=== PATIENT | male | born 1955 | race Caucasian/White ===

== ENCOUNTER 2016-05-13 11:44 | Inpatient (IN) | payer OTHER ==
[2016-05-13] MEDS ORDERED: ZOFRAN ODT PO SCH (13:45)
[2016-05-13 14:03] LABS: ALLEN TEST YES; BE -12.1 mmoll (-3.0-3.0); BLOOD TYPE ARTERIAL; DRAW SITE R RADIAL; O2(CT) 7.1 mL/dL (15.0-23.0); PCO2(98.6) 31 mmHg (35-45); PO2(98.6) 97 mmHg (60-100); SAMPLE BLOOD; SAO2 99.8 % (95.0-100.0); THB 5.1 g/dL (11.5-17.4); pH(98.6) 7.26 (7.35-7.45)
[2016-05-13 14:04] LABS: MODALITY ROOM AIR
[2016-05-13] MEDS ORDERED: NS 500 ML ONE (15:34)
[2016-05-13] MEDS: LACTULOSE PO SCH (16:34)
[2016-05-13] MEDS: SODIUM BICARBONATE PO SCH (16:34)
--- NOTE | 2016-05-13 19:34 | HISTORY AND PHYSICAL ---
CHIEF COMPLAINT: Fatigue, weakness, anemia. HISTORY OF PRESENT ILLNESS: He is a 60-year-old white gentleman who after discharge from the hospital 2 weeks ago continues to have heme-positive stools. He has slow occult GI bleeding. He was seen twice at [facility] Transplant [facility]. When he left hematocrit was 26.9. In my office today it was 15. Basically admitted to the hospital for symptomatic anemia due to occult GI bleeding. I am going to ask Dr. Arriaga to unravel the occult GI bleeding. He had 2 EGDs and there were no signs of active bleeding. As a result a hospital admission was warranted. PAST MEDICAL HISTORY: Chronic renal failure stage 3, cirrhosis due to ELENA, type 2 diabetes, gout, hypertension, hypogonadism, hypothyroidism, morbid obesity, pancytopenia due to hypersplenism, umbilical hernia, sleep apnea, history of SBP, history of morbid obesity, history of non-anion gap metabolic acidosis due to GI loss. PAST SURGICAL HISTORY: Orthotopic liver transplant, vasectomy, recent EGD and colonoscopy this year consistent with portal gastropathy. MEDICATIONS: Prograf 0.5 mg daily, Synthroid 75 mcg daily, Prilosec 40 daily, nadolol 80 daily, glipizide 10 p.o. b.i.d., lactulose 30 mL p.o. t.i.d., Januvia 100 daily, Lasix 80 daily, Aldactone 100 daily, naproxen 550 p.o. b.i.d., bicarb 650 p.o. t.i.d. ALLERGIES: Reported to latex. SOCIAL HISTORY: Retired from . Disabled. Lives in [place]. No smoking. No alcohol. with 2 children. FAMILY HISTORY: Father of [place] at 60. Mom of breast cancer. HEALTH MAINTENANCE: Flu vaccine 2015, pneumonia 2014. Last EGD in April at [facility]. REVIEW OF SYSTEMS: HEENT: No headache. No vision problems. No earache. No sore throat. Neck: No goiter. No lymphadenopathy. No bruit. Cardiopulmonary: No chest pain, shortness of breath, PND, orthopnea. Gastrointestinal: No nausea, vomiting, abdominal pain. Occult heme-positive stools. Genitourinary: No history of hesitancy, frequency. No fever. Extremities: Mild swelling of feet. No joint pain. Neurologic Examination: No focal symptoms or weakness. PHYSICAL EXAMINATION: VITAL SIGNS: Stable. HEENT: Atraumatic, normocephalic. Pupils equal and reactive to light. Pale, slightly jaundiced. TMs are normal. Nose and throat within normal limits. NECK: Supple. No lymphadenopathy. JVD is normal. CHEST: Clear to auscultation. HEART: Sounds are regular, no murmur. ABDOMEN: Belly is soft, obese, nontender. Good bowel sounds. No masses palpable GASTROINTESTINAL: Heme-positive stools. EXTREMITIES: Had 2+ pedal edema in both legs. NEUROLOGIC: Nonfocal. No asterixis noted. INVESTIGATIONS IN MY OFFICE: Hematocrit 15, platelets 50,000, white cell count 2.5, SMA 7, creatinine is 2.3. ASSESSMENT AND PLAN: 1. A 60-year-old, white gentleman, admitted to the hospital with symptomatic anemia due to occult GI bleeding with underlying cirrhosis of liver with portal gastropathy and pancytopenia from hypersplenism. He continues to lose blood in the heme-positive stools. Plan is transfusion to maintain hematocrit above 24 and GI consult. Reconcile home medications. 2. Non-anion gap metabolic acidosis. Continue on bicarb. 3. Hepatic encephalopathy. Continue on Xifaxan, lactulose. Reconcile home medications when we check the labs in the morning.
[2016-05-13] MEDS: ZOFRAN ODT PO SCH (21:38)
[2016-05-13] MEDS: XIFAXAN PO SCH (22:30)
[2016-05-14 06:27] LABS: INR 1.23; PROTIME 13.1 Seconds (9.2-11.7)
[2016-05-14 06:32] LABS: BASO% 0.7 % (0.0-0.8); EOS# 0.21 X1000 (0.0-0.7); EOS% 7.5 % (0.0-10.0); HEMATOCRIT 19.1 % (42.0-52.0); HEMOGLOBIN 5.9 g/dL (14.0-18.0); LYMPH# 0.61 X1000 (1.2-3.4); LYMPH% 21.8 % (20.5-51.1); MANUAL DIFF NEEDED? NO; MCH 30.7 PG (27-31); MCHC 30.9 g/dL (33-37); MCV 99.5 FL (81-99); MONO# 0.24 X1000 (0.11-0.59); MONO% 8.6 % (1.7-9.3); NEUT% 61.4 % (42.2-75.2); PLT 40 X1000 (130-400); RBC 1.92 XMIL (4.7-6.1)
[2016-05-14 06:54] LABS: ALBUMIN 1.8 g/dL (3.5-5.0); CALCIUM 7.1 mg/dL (8.8-10.2); DIRECT BILIRUBIN 0.4 mg/dL (0.00-0.20); POTASSIUM 4.1 mmol/L (3.5-5.1); TOTAL BILIRUBIN 1.09 mg/dL (0.20-1.00); TOTAL PROTEIN 4.4 g/dL (6.3-8.3)
[2016-05-14] MEDS ORDERED: PRILOSEC PO SCH (07:00)
[2016-05-14] MEDS: LASIX PO SCH (08:57)
[2016-05-14] MEDS: CORGARD PO SCH (09:00)
[2016-05-14] MEDS: JANUVIA PO SCH (09:00)
[2016-05-14] MEDS: SODIUM BICARBONATE PO SCH ×3 (09:00→17:45)
[2016-05-14] MEDS: XIFAXAN PO SCH ×2 (09:01→21:11)
[2016-05-14] MEDS: PROGRAF PO SCH (09:01)
[2016-05-14] MEDS: SYNTHROID PO SCH (09:01)
[2016-05-14] MEDS: LEVAQUIN PO SCH (09:01)
[2016-05-14] MEDS ORDERED: NS 500 ML ONE (10:13)
[2016-05-14] MEDS: ZOFRAN ODT PO SCH (10:22)
[2016-05-14] MEDS: LACTULOSE PO SCH ×2 (12:34→17:42)
[2016-05-14] MEDS ORDERED: ALBUMIN 25% IV SCH (12:45)
[2016-05-14] MEDS: PROTONIX IV SCH ×2 (13:45→23:59)
[2016-05-14] MEDS: SODIUM CHLORIDE 0.9% INJ SCH ×2 (13:45→23:59)
[2016-05-14] MEDS: LASIX IV SCH ×2 (13:46→19:36)
[2016-05-14] MEDS ORDERED: CARAFATE LIQUID PO SCH (14:00)
[2016-05-14] MEDS: FLINTSTONES COMPLETE PO SCH (17:45)
[2016-05-14] MEDS: ICAR-C PO SCH (21:11)
--- NOTE | 2016-05-15 06:24 | CONSULTATION ---
DATE OF CONSULTATION: 05/14/2016 PRIMARY CARE PHYSICIAN: Dr. Georgia Zavala. PRIMARY LINE DEPARTMENT SUPERVISOR: Dr. Mickey Moser at [facility]. REASON FOR CONSULTATION: Liver cirrhosis secondary to fatty liver. HISTORY OF PRESENT ILLNESS: Mr. Cortes is a 60-year-old male who was noted to have low blood counts as an outpatient per Dr. Zavala. He was sent to the hospital for blood transfusion. The patient has a history of known liver cirrhosis complicated with esophageal varices, watermelon stomach, obesity, ascites, anasarca, hypoalbuminemia, coagulopathy, thrombocytopenia, who has been undergoing EGDs with serial argon plasma coagulations of watermelon stomach at [facility]. The last one was done in mid April. The next one is scheduled for 05/11/2016. In between , he came to see Dr. Zavala as an outpatient and was noted to have low blood counts and was sent to the hospital for blood transfusion. He received 3 units of blood transfusion. He need denies any vomiting blood. He does complain of diarrhea which he attributes to lactulose. He denies noticing any bright blood in the stools. PAST MEDICAL HISTORY: Morbid obesity, chronic renal failure stage 3, cirrhosis secondary to ELENA, status post liver transplant in 2008 and repeat cirrhosis in the liver since 2013, being followed Dr. Mickey Moser. Portal hypertension, thrombocytopenia, splenomegaly, hepatic encephalopathy, type 2 diabetes, gout, hypertension, hypogonadism, hypothyroidism, metabolic syndrome, umbilical hernia, sleep apnea, history of SBP. PAST SURGICAL HISTORY: Orthotopic liver transplant in 2008 at [facility]. Vasectomy. MEDICATIONS IN THE HOSPITAL: 1. Januvia. 2. Lactulose 30 mL p.o. t.i.d. 3. Lasix 80 mg p.o. daily. 4. Levaquin 5 mg p.o. daily. 5. Synthroid 75 mcg p.o. daily. 6. Nadolol 80 mg p.o. daily. 7. Tacrolimus 1 mg p.o. daily. 8. Sodium bicarbonate 650 mg p.o. t.i.d. 9. Xifaxan 550 mg p.o. b.i.d. 10. Zofran ODT 8 mg p.o. q. 8 hours as needed. 11. Lasix 80 mg IV as directed after blood transfusions. 12. Albumin 50 g IV daily for 3 days. 13. Iron-C b.i.d. 14. Protonix IV q.12 hours. He is a clear liquid diet. ALLERGIES: Latex. FAMILY HISTORY: He denied history of any smoking or alcohol. Very supportive at bedside. REVIEW OF SYSTEMS: He denies any fevers, rigors, chills, chest pain. He does have some weakness, shortness of breath, and dyspnea at rest which is getting better since transfusion. He denies any vomiting blood or passing blood in the stools. He denies any neurologic complaints although his ammonia was high. He is currently on Xifaxan and lactulose. PHYSICAL EXAMINATION: VITAL SIGNS: Temperature of 97.5 degrees, pulse rate 55 , respiratory 18, blood pressure 106/49, saturating 98% on room air. GENERAL APPEARANCE: Body weight is 329 pounds, 12.8 ounces. BMI is 51.7 kg/m. He is obese, lying in bed in no distress. HEENT: Pale conjunctivae. No icterus. Pupils equal, react to light. NECK is supple. CHEST: Decreased breath sounds. CARDIAC: Regular rhythm. No murmur. ABDOMEN: Obese. Abdominal wall edema noted. mild distention noted. No rebound or guarding. Bowel sounds heard. Extremities: No cyanosis or clubbing. Bilateral lower extremity edema noted. Neurologic: He is alert and awake. LABORATORY DATA: His hemoglobin and hematocrit is 5.9 and 19.1, white count of 2.8, platelet count of 40,000. MCV of 99.5. INR of 1.23. PT of 13.1, pH of 7.26, pCO2 of 31 , PO2 is 97. Bicarb of 15.5. lactate of 1.1; that is on room air ABG. Sodium 140, potassium 4.1, chloride 115, bicarb of 15. Anion gap 11. BUN of 60, creatinine 2.5, glucose of 87. Calcium 7.1, magnesium 2.0. Total bilirubin is 1.09, indirect 0.4. AST 25, ALT 15. Alkaline phosphatase 116. Total protein 4.4, albumin 1.8. Ammonia 66. Stool for occult blood is positive. IMPRESSION: 1. Fatty liver. Nonalcoholic steatohepatitis. Cirrhosis. Portal hypertension. Splenomegaly. Hepatic encephalopathy. Thrombocytopenia. Coagulopathy in setting of liver transplant in 2008 for fatty liver disease. 2. Morbid obesity metabolic syndrome. 3. Pancytopenia. 4. Positive Hemoccult. 5. Anemia; required 2 units of blood transfusion. 6. History of gastroesophageal varices and watermelon stomach, currently undergoing argon plasma coagulations at the [facility]. The last one was done in mid April and the next one is scheduled for 05/2016. RECOMMENDATIONS: 1. We will continue the patient on Protonix IV b.i.d. We will keep him on Carafate 1 g every 12 hours. We will keep an eye on his hemoglobin and hematocrit. We will transfuse as needed. He will continue on lactulose and Xifaxan. We will hold lactulose for more than 3 Bms in 24 hours. The patient is on Prograf which can cause side effects like hemolytic anemia and thrombocytopenia which also needs to be looked into per hematology and primary care team. 2. We will give him albumin 50g IV daily for 3 days for severe hypoalbuminemia which will help him diurese well. We will advance his diet to hepatic diet once hematocrit stabilizes. 3. We will keep him on Iron-C 1 capsule p.o. b.i.d. and multivitamin once daily. 4. We will continue him on home medications in the form of nadolol and Lasix. Above was discussed with the patient and family and all questions were answered. [facility] HOSPITALPatricia
[2016-05-15 07:13] LABS: BASO% 0.4 % (0.0-0.8); EOS# 0.16 X1000 (0.0-0.7); EOS% 6.6 % (0.0-10.0); HEMATOCRIT 22.6 % (42.0-52.0); HEMOGLOBIN 6.9 g/dL (14.0-18.0); LYMPH# 0.58 X1000 (1.2-3.4); MANUAL DIFF NEEDED? YES; MCH 29.9 PG (27-31); MCHC 30.5 g/dL (33-37); MCV 97.8 FL (81-99); MONO# 0.23 X1000 (0.11-0.59); MONO% 9.5 % (1.7-9.3); MPV 9.1 FL (7.4-10.4); NEUT% 59.5 % (42.2-75.2); PLT 43 X1000 (130-400); RBC 2.31 XMIL (4.7-6.1)
[2016-05-15 07:34] LABS: CALCIUM 7.4 mg/dL (8.8-10.2)
[2016-05-15] MEDS ORDERED: NS 500 ML IV ONE (07:53)
[2016-05-15 07:55] LABS: EOS 6 % (1-10); LYMPHS 12 % (21-51)
[2016-05-15] MEDS: JANUVIA PO SCH (09:40)
[2016-05-15] MEDS: SODIUM BICARBONATE PO SCH ×3 (09:40→18:23)
[2016-05-15] MEDS: LASIX PO SCH (09:40)
[2016-05-15] MEDS: LACTULOSE PO SCH ×3 (09:40→18:23)
[2016-05-15] MEDS: ICAR-C PO SCH ×2 (09:40→21:12)
[2016-05-15] MEDS: LEVAQUIN PO SCH (09:40)
[2016-05-15] MEDS: PROGRAF PO SCH (09:41)
[2016-05-15] MEDS: XIFAXAN PO SCH ×2 (09:41→21:12)
[2016-05-15] MEDS: CORGARD PO SCH (09:41)
[2016-05-15] MEDS: SYNTHROID PO SCH (09:41)
[2016-05-15] MEDS: FLINTSTONES COMPLETE PO SCH (09:41)
[2016-05-15] MEDS ORDERED: LASIX IV ONE ×2 (11:07→15:00)
--- NOTE | 2016-05-15 11:27 | PROGRESS NOTE ---
DATE: 05/15/2016 SUBJECTIVE: The patient is resting in bed. He is fixing to get 2 units blood transfusion. He had 2 BM's today.denies Melena. Wants to eat solid food. OBJECTIVE: Vitals: Temperature of 97.6 degrees, pulse rate 57, respiratory rate 14, blood pressure 115/50, satting 100% on room air. General: Morbidly obese. Lying in bed in no acute distress. HEENT: Pupils are equal and reactive to light. No icterus. Neck : Supple. Abdomen: Mildly protuberant. Morbidly obese. Abdominal wall edema noted. Bowel sounds are present. No guarding. Extremities: No cyanosis, clubbing. Bilateral chronic lower extremity edema noted and stasis dermatitis noted. Neurologic: He is alert, awake, oriented. LABS: His hemoglobin and hematocrit is 6.9 and 22.6. White count of 2.4, platelet count of 43, INR 1.23. Sodium 141, potassium 4, chloride 111, bicarbonate of 16, anion gap of 14, BUN of 60, creatinine of 2.6, glucose of 92, calcium 7.4. IMPRESSION AND PLAN: 1. Anemia likely secondary to liver cirrhosis and gastrointestinal blood loss with watermelon stomach. Questionable medications, like Prograf. We will continue to transfuse as needed. We will continue on iron b.i.d. Start Glucerna TID. and advance diet if Hct stabilizes. 2. Cirrhosis. Continue on nadolol, Lasix, intravenous albumin, Zyvox and lactulose. 3. Gastrointestinal bleed. He will continue on Protonix twice daily. 4. Status post liver transplant in 2008. Continue immunosuppression, like Prograf. Above plan discussed with the patient and family and answered all questions. [facility]
[2016-05-15] MEDS: ZOFRAN ODT PO SCH ×2 (13:42→23:49)
[2016-05-15] MEDS: PROTONIX IV SCH ×2 (13:42→17:16)
[2016-05-15] MEDS ORDERED: VENOFER 300 MG in NS 250 ML IV ONE (20:00)
[2016-05-15] MEDS ORDERED: VENOFER IV ONE (20:00)
[2016-05-15] MEDS: ALBUMIN 25% IV SCH (21:13)
[2016-05-16] MEDS ORDERED: BENADRYL LIQUID PO PRN (00:04)
[2016-05-16] MEDS: PROTONIX IV SCH ×2 (05:36→18:57)
[2016-05-16] MEDS: SODIUM CHLORIDE 0.9% INJ SCH (05:37)
[2016-05-16 07:01] LABS: BASO% 0.5 % (0.0-0.8); EOS# 0.15 X1000 (0.0-0.7); EOS% 7.4 % (0.0-10.0); HEMATOCRIT 24.2 % (42.0-52.0); HEMOGLOBIN 7.5 g/dL (14.0-18.0); LYMPH% 19.7 % (20.5-51.1); MANUAL DIFF NEEDED? YES; MCV 96.8 FL (81-99); MONO# 0.16 X1000 (0.11-0.59); MONO% 7.9 % (1.7-9.3); MPV 8.6 FL (7.4-10.4); NEUT% 64.5 % (42.2-75.2); PLT 32 X1000 (130-400)
[2016-05-16 07:04] LABS: CALCIUM 7.4 mg/dL (8.8-10.2)
[2016-05-16 08:26] LABS: EOS 4 % (1-10); LYMPHS 18 % (21-51); MONO 6 % (1-9)
[2016-05-16 08:27] LABS: HYPOCHROM 1+
[2016-05-16] MEDS: JANUVIA PO SCH (08:33)
[2016-05-16] MEDS: LASIX PO SCH (08:33)
[2016-05-16] MEDS: XIFAXAN PO SCH (08:33)
[2016-05-16] MEDS: PROGRAF PO SCH (08:33)
[2016-05-16] MEDS: ICAR-C PO SCH (08:33)
[2016-05-16] MEDS: SODIUM BICARBONATE PO SCH ×3 (08:33→18:57)
[2016-05-16] MEDS: LEVAQUIN PO SCH (08:33)
[2016-05-16] MEDS: FLINTSTONES COMPLETE PO SCH (08:33)
[2016-05-16] MEDS: CORGARD PO SCH (08:33)
[2016-05-16] MEDS: ALBUMIN 25% IV SCH (08:33)
[2016-05-16] MEDS: SYNTHROID PO SCH (08:33)
[2016-05-16] MEDS: LACTULOSE PO SCH ×3 (08:34→18:57)
[2016-05-16] MEDS ORDERED: NS 500 ML ONE (11:17)
[2016-05-16 18:40] VITALS: BP 120/50
--- NOTE | 2016-05-19 02:38 | DISCHARGE SUMMARY ---
ADMISSION DATE: 05/13/2016 DISCHARGE DATE: 05/16/2016 DISCHARGING DIAGNOSIS: Symptomatic anemia due to occult gastrointestinal bleeding. Previous EGD, colonoscopy were negative as well as capsule endoscopy. SECONDARY DIAGNOSIS: 1. Occult GI bleeding due to Portal gastropathy. 2. Chronic renal failure stage 3. 3. Cirrhosis due to nonalcoholic steatohepatitis. 4. Type 2 diabetes. 5. Gout. 6. Hypertension. 7. Hypogonadism. 8. Hypothyroidism. 9. Pancytopenia due to hypersplenism. 10. Umbilical hernia. 11. History of sleep apnea. 12. History of subacute bacterial peritonitis. 13. Non -anion gap metabolic acidosis. CONSULTANTS: Dr. Arriaga. PROCEDURES: 1. Transfusion of 6 units of packed RBC. 2. IRON INFUSION WHICH IS STOPPED DUE TO QUESTIONABLE ALLERGIC REACTION. 3. IV albumin followed by Lasix. BRIEF HISTORY: Please see the H and P was done on the day of admission. In brief he is a 60- year-old morbidly obese white gentleman with above problems under the care of [facility] transplant clinic presented to my office with symptomatic anemia. Hematocrit was 15. He continues to have heme-positive stools. HOSPITAL COURSE: He was given a transfusion to maintain hematocrit above 25. Erythropoietin levels were normal. Continues to have heme-positive stools. Dr. Arriaga recommended to follow up at the [facility]plant [facility]. His is going to call on Thursday to make an appointment. Rest of the hospital course was pretty stable. Ammonia level was 66. DISCHARGE INSTRUCTIONS: Flu vaccine. Pneumonia vaccines are up-to-date. Daily weights. Fluid restriction. Discharge weight is 320 pounds. Prograf 1 mg daily, Synthroid 75 mcg daily, Prilosec 40 daily, nadolol 80 mg daily, glipizide 10 mg p.o. b.i.d., lactulose 30 mL p.o. t.i.d., Xifaxan 550 mg p.o. b.i.d., Januvia 100 mg daily, Lasix 80 daily, Zofran as needed, Carafate liquid 10 mL 1 teaspoon every q.6, sodium bicarbonate 625 mg p.o. b.i.d. Follow up with [facility] next week. [facility]
== END 2016-05-16 19:07 | disposition home or self-care (01) | DRG 378 ==
LOC: DIRADM 11:44 → 3N 13:06
PROVIDERS: ADMIT Internal Medicine; ATTEND Internal Medicine
PROC: 30233N1 Transfusion of Nonautologous Red Blood Cells into Peripheral Vein, Percutaneous Approach (ICD-10-PCS; principal; 2016-05-13)
DX: K31.811 Angiodysplasia of stomach and duodenum with bleeding (principal); Z94.4 Liver transplant status; D61.818 Other pancytopenia; K76.6 Portal hypertension; E87.2 Acidosis; E11.22 Type 2 diabetes mellitus with diabetic chronic kidney disease; N18.3 Chronic kidney disease, stage 3 (moderate); E88.81 Metabolic syndrome and other insulin resistance; I12.9 Hypertensive chronic kidney disease with stage 1 through stage 4 chronic kidney disease, or unspecified chronic kidney disease; K75.81 Nonalcoholic steatohepatitis (NASH); E66.01 Morbid (severe) obesity due to excess calories; K72.90 Hepatic failure, unspecified without coma; I85.10 Secondary esophageal varices without bleeding; K42.9 Umbilical hernia without obstruction or gangrene; K74.60 Unspecified cirrhosis of liver; D73.1 Hypersplenism; K31.89 Other diseases of stomach and duodenum; E03.9 Hypothyroidism, unspecified; E29.1 Testicular hypofunction; G47.30 Sleep apnea, unspecified; Z79.899 Other long term (current) drug therapy; Z79.1 Long term (current) use of non-steroidal anti-inflammatories (NSAID); Z80.3 Family history of malignant neoplasm of breast; Z83.3 Family history of diabetes mellitus
CPT/HCPCS: 80048; 80076; 82140; 82270; 82805; 82948; 83735; 85025; 85610; 86850; 86900; 86901; 86920; 94760; 94761; C9113; J1756; J1940; J7040; J7050; P9016; P9047; S0164

== ENCOUNTER 2016-08-15 19:44 | Inpatient (IN) ==
[2016-08-15] MEDS ORDERED: ZOFRAN IV PRN (21:04)
[2016-08-15] MEDS ORDERED: PROTONIX 80 MG in NS 80 ML IV SCH (21:14)
[2016-08-15] MEDS ORDERED: SODIUM CHLORIDE 0.9% INJ SCH (21:30)
[2016-08-15] MEDS ORDERED: SANDOSTATIN 500 MICROGM in D5W 100 ML IV SCH (21:45)
[2016-08-15 21:50] LABS: INR 1.29; PROTIME 13.8 Seconds (9.2-11.7)
[2016-08-15 22:01] LABS: ALBUMIN 3.1 g/dL (3.5-5.0); CALCIUM 7.8 mg/dL (8.8-10.2); MAGNESIUM 1.8 mg/dL (1.5-2.7); POTASSIUM 3.2 mmol/L (3.5-5.1); TOTAL BILIRUBIN 2.3 mg/dL (0.20-1.00); TOTAL PROTEIN 5.7 g/dL (6.3-8.3)
[2016-08-15 22:02] LABS: BASO% 0.7 % (0.0-0.8); EOS# 0.05 X1000 (0.0-0.7); EOS% 3.5 % (0.0-10.0); HEMATOCRIT 17.9 % (42.0-52.0); HEMOGLOBIN 5.6 g/dL (14.0-18.0); LYMPH# 0.35 X1000 (1.2-3.4); LYMPH% 24.6 % (20.5-51.1); MANUAL DIFF NEEDED? YES; MCH 32.2 PG (27-31); MCHC 31.3 g/dL (33-37); MCV 102.9 FL (81-99); MONO# 0.12 X1000 (0.11-0.59); MONO% 8.5 % (1.7-9.3); MPV 9.9 FL (7.4-10.4); NEUT% 62.7 % (42.2-75.2); PLT 27 X1000 (130-400); RBC 1.74 XMIL (4.7-6.1)
[2016-08-15] MEDS ORDERED: TYLENOL PO PRN (22:03)
[2016-08-15 22:11] LABS: LYMPHS 23 % (21-51); MONO 3 % (1-9)
[2016-08-15 22:12] LABS: HYPOCHROM OCCASIONAL
--- NOTE | 2016-08-15 22:53 | HISTORY AND PHYSICAL ---
CHIEF COMPLAINT: Was low blood count and weakness. HISTORY OF PRESENT ILLNESS: Briefly it is a very complicated patient of Dr. Zavala'goldy with status post hepatic transplant who has recently been admitted for a GI bleed and who is followed primarily at [facility] in the transplant center has recently been placed on dialysis. He has not noted significant blood loss. The last admission he had obvious I believe hematochezia and has a history of variceal bleeding and I believe portal gastropathy related to his chronic liver disease cirrhosis. He has not noticed any melena or hematochezia at this point. He came in for evaluation. His blood count was around 7. He was discharge from [facility] I want to say couple weeks ago. He had been there actually for about 20 days. Hemoglobin was 7 at that time. Today in dialysis his hemoglobin was found to be 5 and he was directly admitted per Dr. Sanchez for transfusion and further evaluation. PAST MEDICAL HISTORY: 1. Again status post hepatic transplant but with recurrent cirrhosis. 2. End-stage renal disease. 3. Hypertension. 4. Recent GI bleed. 5. History of esophageal varices. 6. Portal gastroscopy. 7. Type 2 diabetes. 8. Hypothyroidism. PAST SURGICAL HISTORY: Vasectomy and liver transplant. SOCIAL HISTORY: No tobacco or ethanol. ALLERGIES: Reportedly allergies to latex and iron sucrose. MEDICATION LIST: He is on Questran, dicyclomine, Lasix, glipizide, lactulose, Synthroid, metolazone, nadolol, omeprazole. REVIEW OF SYSTEMS: Otherwise negative except as outlined in the HPI. All systems reviewed and are negative. FAMILY HISTORY: Reviewed, noncontributory. PHYSICAL EXAMINATION: VITAL SIGNS: Blood pressure 104/35, heart rate of 71, respiratory 16, temperature 97.8, saturations were 100% on room air. GENERAL: A well-developed male in no acute distress. HEAD: Normocephalic, atraumatic. EYES: Pupils equal, round, reactive to light. He does have icteric sclerae. NECK: Supple. No thyromegaly. PULMONARY: Bilateral breath sounds. Clear anteriorly. GI: Was soft, protuberant, some distention. Bowel sounds positive. EXTREMITIES: No clubbing or cyanosis. LYMPHATICS: No peripheral edema. He had skin chronic venous changes along both lower extremities. NEUROLOGICAL: Nonfocal. He was alert oriented x3. MUSCULOSKELETAL: Was 4/5 on all 4 extremities. No asterixis was appreciated. LABORATORY DATA: Is pending. Hemoglobin of 5.6, INR is 1.29. Chemistries still pending. ASSESSMENT AND PLAN: This is a 61-year-old male with hepatic transplant and cirrhosis and end- stage renal presenting with persistent GI bleeding, chronic blood loss, symptomatic anemia. 1. Symptomatic anemia. We will transfuse 2 units of packed red blood cells and follow clinically. 2. Gastrointestinal bleed. He likely has acute on chronic process. Again most of his workup has been at [facility]. Will defer to Dr. Zavala or his covering team in the morning about any other imaging modalities. I will go ahead and get GI involved here. We have started Protonix and octreotide just because of his history. 3. Diabetes. Continue follow his blood sugars. Check a hemoglobin A1c. 4. Hypothyroidism appears to be stable. Continue his regular medications and follow. cc: MD Fabricio Cassidy MD
[2016-08-16] MEDS: CARAFATE LIQUID PO SCH ×2 (01:22→01:25)
[2016-08-16] MEDS ORDERED: NS 500 ML ONE ×2 (01:28→10:54)
[2016-08-16] MEDS ORDERED: NS 250 ML IV ONE (03:14)
[2016-08-16] MEDS ORDERED: HUMULIN R SUBQ SCH (07:00)
[2016-08-16 07:52] LABS: ALBUMIN 2.9 g/dL (3.5-5.0); POTASSIUM 3.6 mmol/L (3.5-5.1); TOTAL BILIRUBIN 3.81 mg/dL (0.20-1.00); TOTAL PROTEIN 5.3 g/dL (6.3-8.3)
[2016-08-16 07:59] LABS: BASO% 0.6 % (0.0-0.8); EOS# 0.07 X1000 (0.0-0.7); HEMOGLOBIN 6.6 g/dL (14.0-18.0); LYMPH# 0.33 X1000 (1.2-3.4); LYMPH% 19.1 % (20.5-51.1); MANUAL DIFF NEEDED? YES; MCH 31.6 PG (27-31); MCHC 31.4 g/dL (33-37); MCV 100.5 FL (81-99); MONO# 0.14 X1000 (0.11-0.59); MONO% 8.1 % (1.7-9.3); NEUT% 68.2 % (42.2-75.2); RBC 2.09 XMIL (4.7-6.1)
[2016-08-16 08:01] LABS: PLT 26 X1000 (130-400)
[2016-08-16 08:27] LABS: LYMPHS 20 % (21-51); MONO 16 % (1-9)
[2016-08-16] MEDS ORDERED: HEPARIN IV PRN (08:30)
[2016-08-16] MEDS ORDERED: NS 2,000 ML MISC PRN (08:30)
[2016-08-16] MEDS ORDERED: TIGHT: 0.2 ML/HR MISC PRN (08:30)
[2016-08-16] MEDS ORDERED: LACTULOSE PO SCH (09:00)
[2016-08-16] MEDS ORDERED: LASIX PO SCH (09:00)
[2016-08-16] MEDS ORDERED: ZOFRAN ODT PO SCH (09:00)
[2016-08-16] MEDS ORDERED: ZAROXOLYN PO SCH (09:00)
[2016-08-16] MEDS ORDERED: SODIUM BICARBONATE PO SCH (09:00)
[2016-08-16] MEDS ORDERED: SYNTHROID PO SCH ×3 (09:00→09:53)
[2016-08-16] MEDS ORDERED: CORGARD PO SCH (09:00)
[2016-08-16] MEDS ORDERED: PROGRAF PO SCH (09:00)
[2016-08-16] MEDS ORDERED: XIFAXAN PO SCH (09:00)
[2016-08-16] MEDS ORDERED: BENTYL LIQUID PO SCH (09:00)
[2016-08-16] MEDS ORDERED: ZOFRAN PO PRN ×2 (09:47)
[2016-08-16] MEDS ORDERED: QUESTRAN PO SCH (10:00)
--- NOTE | 2016-08-16 10:27 | Diag Imaging Result Document ---
PROCEDURE NAME: CHEST-PORTABLE - 08/15/2016 PORTABLE CHEST X-RAY: COMPARISON: 06/22/2016. FINDINGS: There is a right-sided dialysis catheter, with the distal tip at the lower SVC. No pneumothorax or pleural effusion. There is moderate cardiomegaly. Pulmonary vascularity is normal. IMPRESSION: Mild cardiomegaly, but no acute disease.
--- NOTE | 2016-08-16 10:29 | Diag Imaging Result Document ---
PROCEDURE NAME: ABDOMEN FLAT/UPRIGHT - 08/15/2016 X-RAY ABDOMEN, TWO VIEWS: COMPARISON: 06/16/2016. FINDINGS: The upright exam should be repeated. There is a lot of heterogeneous contents within the stomach bubble. No small bowel obstruction. Numerous surgical clips are present throughout the abdomen. IMPRESSION: 1. Nonspecific, large collection of heterogeneous material in the stomach. 2. Upright exam should be repeated.
[2016-08-16] MEDS ORDERED: TUMS EXTRA STRENGTH PO SCH (11:00)
--- NOTE | 2016-08-16 11:00 | PROGRESS NOTE ---
DATE: 08/16/2016 SUBJECTIVE: The patient is stable. No active bleeding. Feels generally well. Had had profound anemia with a hemoglobin of 5 yesterday at dialysis and was sent in for blood transfusions and during the night received 2 units PRBCs transfused. Again, no active bleeding. He has been followed at [facility] after his liver transplant. He says he is taking his Prograf Mondays, Wednesdays, and Fridays. He is scheduled to undergo dialysis per Dr. Sanchez this morning. OBJECTIVE: Vital signs: Afebrile. Pulse 72, respirations 20, blood pressure 107/46, O2 sat on room air 100%. CV: RRR. Lungs: CTA. Abdomen: Protuberant, nontender. Extremities: Trace lower extremity edema. LAB: White count 1.73 up from 1.42 last evening. Hemoglobin 6.6, up from 5.6. Platelets 26, stable. PT 13.8, INR 1.29, PTT 41.1. Sodium 136, potassium 3.6, chloride 99, CO2 of 27, BUN 23, creatinine 1.7, glucose 85, calcium 8.0, magnesium 2.0. Total bilirubin 3.81, AST 29, ALT 17, alkaline phosphatase 108, total protein 5.3, albumin 2.9. TSH 5.59. Plasma lactate 2.8. ASSESSMENT: 1. Profound anemia with thrombocytopenia. 2. Chronic liver disease status post liver transplant secondary to sclerosis. 3. Type 2 diabetes mellitus. 4. Obesity. 5. History of recent GI bleed. 6. End-stage renal disease on hemodialysis per Dr. Sanchez. 7. History of esophageal varices. 8. Hypothyroidism. PLAN: At this time, Dr. Sanchez plans on giving the patient an additional 2 units PRBCs--that is a total of 4. Then he plans on dialyzing the patient to prevent fluid overload. Will try to resume his home medications, place him on a diabetic diet, and follow the patient clinically. Dr. Bravo is going to see the patient in consultation for Gastroenterology. Continue IV PPI and oral Carafate. cc: MD Fabricio Rodrigues MD
[2016-08-16] MEDS ORDERED: NS 2,000 ML ONE ×2 (13:36→13:59)
--- NOTE | 2016-08-16 14:56 | PROGRESS NOTE ---
DATE: 08/16/2016 Mr. Cortes is currently receiving hemodialysis. No shortness of breath. His blood pressure is acceptable. He will dialyze for up to 2 hours and achieve 1.5 L net negative with 1 unit packed red blood cells transfused. He is tolerating this plan so we will continue without interruption. cc: MD Fabricio Cervantes MD
--- NOTE | 2016-08-16 15:10 | CONSULTATION ---
DATE OF CONSULTATION: 08/16/2016 REASON FOR CONSULTATION: Assistance with management. HISTORY OF PRESENT ILLNESS: Mr. Cortes is a 61-year-old white male who has been hospitalized repeatedly and extensively at [facility]. He has advanced cirrhosis. He has had a transplant in the past. He has had problems with ongoing GI bleeding resulting from esophageal varices. Family states he had 21 units of packed red blood cells during his last stay at [facility]. He initiated dialysis 3 weeks ago while he was at [facility] and is now coming to our clinic. His outpatient routine hemoglobin was 5 and so he was directly admitted to receive transfusion. He has had 2 units of blood already and his hemoglobin improved from 5.6 to 6.6, and he is receiving an additional 2 units. He states he does not have melena or hematochezia or nausea or vomiting at this time. PAST MEDICAL HISTORY: As above. He also has diabetes, hypothyroidism. ALLERGIES: Iron sucrose. SOCIAL HISTORY: He is and lives with his . No alcohol or tobacco. FAMILY HISTORY: Otherwise noncontributory. REVIEW OF SYSTEMS: Otherwise noncontributory. PHYSICAL EXAMINATION: Vital Signs: Blood pressure 105/52, heart rate 70, respiration 18, afebrile. Generally: He is a middle-aged, chronically ill man, in no distress. Skin: Warm and dry. Conjunctivae are pink. Pupils are equal. Oropharynx is dry. Neck: Neck veins are not visible. Heart: Regular without gallops. Lungs: Have equal breath sounds. No crackles. Abdomen: Distended and soft. Bowel sounds are present. Extremities: Have minimal edema. No clubbing or cyanosis. IMPRESSION: Gastrointestinal bleeding. He has had 3 units of blood at this time. We will give the last unit with dialysis today in order to maintain a euvolemic state. He understands that he is at risk for needing further transfusions but he would prefer to go home. His hemoglobin will be monitored regularly at the outpatient dialysis unit. He was warned to call or return if he develops melena or vomiting. cc: MD Fabricio Cervantes MD
[2016-08-16 15:49] VITALS: BP 121/62
--- NOTE | 2016-08-16 16:08 | CONSULTATION ---
DATE OF CONSULTATION: 08/16/2016 REFERRING PHYSICIAN: Dr. Best Sanchez M.D. PRIMARY CARE PHYSICIAN: Dr. Keerthi Zavala M.D. PRIMARY TRACE CLERK: Dr. Darnell Acevedo M.D. TRANSPLANT PHYSICIAN: Dr. Mickey Moser M.D. at [facility] CHIEF COMPLAINT: Anemia. HISTORY OF PRESENT ILLNESS: The patient is a 61-year-old white male who underwent a liver transplant in 2008 for nonalcoholic fatty liver disease. However, his course has been complicated by recurrence of his cirrhosis. He was recently discharged from [facility] after a 20- day hospitalization for GI bleeding secondary to varices. He has undergone evaluation for transplant due to new onset renal failure. He is currently on dialysis. At the time of discharge, the patient states that his hemoglobin was approximately 7.0. He had minimal symptoms but presented to hemodialysis for his regular dialysis and was found to have a hemoglobin of 5.0. He was admitted for further evaluation and transfusion. The patient states that he would like to be transfused and discharged. He notes that they already have a preexisting medical appointment for reevaluation at [facility] on 08/31/2016. We are asked to participate in his care. PAST MEDICAL HISTORY: 1. Nonalcoholic fatty liver disease requiring liver transplant, now with recurrent cirrhosis. 2. New end stage renal disease requiring hemodialysis. 3. Hypertension. 4. Variceal bleeding. 5. Recurrent GI bleeding from nonvariceal sources. 6. Esophageal varices secondary to portal hypertension. 7. Diabetes type 2. 8. Hypothyroidism. 9. Central morbid obesity. PAST SURGICAL HISTORY: 1. Orthotopic liver transplant. 2. Vasectomy. SOCIAL HISTORY: Negative for tobacco, alcohol and recreational drug use. MEDICATION ALLERGIES: 1. Latex. 2. Iron sucrose. HOME MEDICATIONS: 1. Questran. 2. Doxycycline. 3. Lasix. 4. Glipizide. 5. Lactulose. 6. Synthroid. 7. Metolazone. 8. Nadolol. 9. Omeprazole. REVIEW OF SYSTEMS: Only remarkable for weakness and fatigue. He denies blood in his stool, nausea with vomiting, hematemesis, hematochezia and melena. FAMILY HISTORY: Noncontributory. PHYSICAL EXAMINATION: He is in no acute distress. His blood pressure is 109/46 , pulse 69, respirations 18, temperature 98.0. HEENT: Notable for anicteric sclerae. His conjunctivae are pale. His oropharyngeal mucosal membranes are unremarkable. Pulmonary: His lungs are clear to auscultation with normal respiratory effort. Cardiovascular: Regular rate and rhythm with no gallops or rubs. Abdomen: Normoactive bowel sounds. The abdomen is soft and nontender but is protuberant. There is no rebound or guarding. Extremities: Bilaterally are negative for cyanosis, clubbing or edema. He does have chronic stasis dermatitis bilaterally. DIAGNOSTIC DATA: Hemoglobin is 5.6, hematocrit 17.9, white count 1.42 with 27, 000 platelets on admission. On 08/16/2016, his hemoglobin is 6.6 with hematocrit of 21.0, white count of 1.73 and 26,000 platelets. His sodium is 136, potassium 3.6, chloride 99, CO2 is 27, BUN is 23, creatinine 1.7 with glucose of 85. His calcium is 8.0, magnesium 2.0, total bilirubin 3.81 , AST is 29, ALT is 17, alkaline phosphatase 108, total protein 5.3 and albumin of 2.9. His TSH is 5.59. On admission, his PT was 13.8 with an INR of 1.29. His PTT is 41.1. IMPRESSION: 1. Symptomatic anemia. 2. Pancytopenia. 3. Known cirrhosis with portal hypertension. 4. History of variceal bleeding, currently being banded at [facility]. 5. Protein calorie malnutrition. 6. Hypothyroidism. 7. Central morbid obesity. RECOMMENDATIONS: 1. The patient and his state that they would like to follow up with Dr. Mickey Moser at [facility]. Therefore, I would recommend continued supportive care and discharge post transfusion. 2. The patient has pancytopenia which appears to be new and warrants further evaluation. 3. Continue nadolol. 4. I would continue the octreotide drip for at least 3 days as he just had variceal banding. 5. I would also continue the Protonix drip for 72 hours. 6. Continue Xifaxan. 7. Continue Bentyl. 8. After 72 hours of IV therapy, I would normally place him on oral PPI therapy. However, the patient is adamant that he wants to be discharged today. 9. He should keep his approximately at [facility] as previously scheduled. 10.Please feel free to contact us if there is a change in his clinical course. cc: MD Fabricio Gonsalez MD Alexis R. Penot, MD Babu Kantamneni, MD Brendan McGuire, MD MTDD
[2016-08-17] MEDS ORDERED: CORGARD PO SCH (09:00)
[2016-08-17] MEDS ORDERED: FOLIC ACID PO SCH (09:00)
--- NOTE | 2016-08-18 05:39 | EKG Report ---
Test Performed on : 08/15/2016 9:30:07 PM Test Reason : chest pain Blood Pressure : / mmHG Vent. Rate : 070 BPM Atrial Rate : 070 BPM P-R Int : 234 ms QRS Dur : 092 ms QT Int : 476 ms P-R-T Axes : 034 069 047 degrees QTc Int : 514 ms Sinus rhythm. with 1st degree AV block. with occasional premature ventricular complexes. Prolonged QT Abnormal ECG When compared with ECG of 22-MAY-2015 05:28, premature ventricular complexes. are now present QRS axis shifted left Nonspecific T wave abnormality, improved in Anterior leads QT has lengthened Confirmed by Vishal SALMERON, Damien Newman ([id number]) on 08/18/2016 7:40:14 PM
[2016-08-18] MEDS ORDERED: PROGRAF PO SCH (08:57)
[2016-08-18] MEDS ORDERED: PROTONIX IV SCH (21:14)
== END 2016-08-16 17:12 | disposition home or self-care (01) ==
LOC: 3N 19:44 → SUATTDRO 19:44
PROVIDERS: ADMIT Internal Medicine; ATTEND Internal Medicine

== ENCOUNTER 2016-09-20 21:33 | Inpatient (IN) ==
[2016-09-20] MEDS ORDERED: BENADRYL IV ONE (22:41)
[2016-09-20] MEDS ORDERED: ATIVAN IV ONE (22:41)
[2016-09-20 22:54] LABS: ALLEN TEST YES; BE 7.2 mmoll (-3.0-3.0); BLOOD TYPE ARTERIAL; DRAW SITE R RADIAL; METHB 2.4 % (0.0-1.5); O2(CT) 2.6 mL/dL (15.0-23.0); PCO2(98.6) 41 mmHg (35-45); SAMPLE BLOOD; SAO2 24.1 % (95.0-100.0); THB 8.1 g/dL (11.5-17.4); pH(98.6) 7.49 (7.35-7.45)
[2016-09-20 22:56] LABS: MODALITY ROOM AIR; PO2(98.6) 14 mmHg (60-100)
[2016-09-20 22:59] LABS: INR 1.22; PTT 32.2 Seconds (22.0-36.0)
[2016-09-20 23:03] LABS: BASO% 0.9 % (0.0-0.8); EOS# 0.25 X1000 (0.0-0.7); EOS% 7.7 % (0.0-10.0); HEMATOCRIT 24.1 % (42.0-52.0); HEMOGLOBIN 7.9 g/dL (14.0-18.0); LYMPH# 0.87 X1000 (1.2-3.4); LYMPH% 26.7 % (20.5-51.1); MANUAL DIFF NEEDED? NO; MCH 34.5 PG (27-31); MCHC 32.8 g/dL (33-37); MCV 105.2 FL (81-99); MONO# 0.21 X1000 (0.11-0.59); MONO% 6.4 % (1.7-9.3); MPV 9.1 FL (7.4-10.4); NEUT% 58.3 % (42.2-75.2); PLT 59 X1000 (130-400); RBC 2.29 XMIL (4.7-6.1)
[2016-09-20] MEDS ORDERED: LACTULOSE PO ONE (23:37)
[2016-09-20 23:55] LABS: URINE SOURCE CATH
[2016-09-20 23:58] LABS: BILIRUBIN URINE SMALL (NEGATIVE); BLOOD URINE TRACE (NEGATIVE); COLOR YELLOW; GLUCOSE URINE NEGATIVE (NEGATIVE); LEUKOCYTES URINE MODERATE (NEGATIVE); NITRITE URINE NEGATIVE (NEGATIVE); PH URINE 5.5; PROTEIN URINE 30 mg/dL (NEGATIVE); TURBIDITY URINE HAZY (CLEAR); UROBILINOGEN URINE 2 mg/dL (NORMAL)
[2016-09-20 23:59] LABS: URINE MICRO REVIEW NEEDED? YES
[2016-09-21 00:02] LABS: ALBUMIN 1.6 g/dL (3.5-5.0); CALCIUM 7.7 mg/dL (8.8-10.2); TOTAL BILIRUBIN 2.3 mg/dL (0.20-1.00); TOTAL PROTEIN 5.1 g/dL (6.3-8.3)
[2016-09-21 00:02] LABS: UR EPITHELIAL CELLS >10 /HPF (<10); URINE BACTERIA NEGATIVE /HPF; URINE CULTURE NEEDED? YES; URINE RBC <10 /HPF (<10); URINE WBC <10 /HPF (<10)
[2016-09-21 00:11] LABS: UR AMPHETAMINES QUAL NONE DETECTED (NONE DETECT); UR BARBITUATES QUAL NONE DETECTED (NONE DETECT); UR BENZODIAZEPIN QUAL NONE DETECTED (NONE DETECT); UR CANNABINOIDS QUAL NONE DETECTED (NONE DETECT); UR COCAINE QUAL NONE DETECTED (NONE DETECT); UR METHADONE QUAL NONE DETECTED (NONE DETECT); UR OPIATES QUAL NONE DETECTED (NONE DETECT); UR OXYCODONE QUAL NONE DETECTED (NONE DETECT); UR PCP QUAL NONE DETECTED (NONE DETECT)
[2016-09-21 00:28] LABS: URINE CASTS GRANULAR PRESENT
[2016-09-21] MEDS ORDERED: ZOFRAN PO PRN (01:22)
[2016-09-21] MEDS ORDERED: ATIVAN IV PRN (01:22)
[2016-09-21] MEDS ORDERED: QUESTRAN PO PRN (01:22)
--- NOTE | 2016-09-21 03:10 | HISTORY AND PHYSICAL ---
PRIMARY CARE PHYSICIAN: Dr. Zavala. CHIEF COMPLAINT: Altered mental status. HISTORY OF PRESENTING ILLNESS: A 61-year-old male with a history of nonalcoholic fatty liver disease status post liver transplant in 2008 who apparently had a recurrence of cirrhosis. Had presented to the emergency department due to worsening confusion and agitation. Patient's family states that this usually occurs when his ammonia levels are up. The patient is followed by his liver transplant team in [place] and previously had issues with a GI bleed. He was evaluated in the ER. Patient was basically agitated and most of the history was obtained from family members. As per family, the patient has been becoming worse in his mentation and is scheduled to see his cst in [place] in a few weeks. PAST MEDICAL HISTORY: Includes nonalcoholic fatty liver disease, end-stage renal disease, diabetes mellitus type 2, hypertension, hypothyroidism, chronic anemia. PAST SURGICAL HISTORY: Liver transplant in 2008 and vasectomy. ALLERGIES: To latex. CURRENT MEDICATIONS: Include tacrolimus 1 mg as directed, omeprazole 40 mg p.o. daily, glipizide 10 mg p.o. b.i.d., lactulose 30 mL p.o. t.i.d., Xifaxan 550 mg p.o. b.i.d., levothyroxine 100 mcg p.o. daily, Questran 4 g p.o. b.i.d., Januvia 25 mg p.o. b.i.d., nadolol 20 mg p.o. daily, folic acid 1 mg p.o. daily. SOCIAL HISTORY: No history of smoking, alcohol, or illicit drug use. FAMILY HISTORY: No history of coronary disease. REVIEW OF SYSTEMS: Unable to obtain due to patient's current mentation. PHYSICAL EXAMINATION: GENERAL: The patient is somewhat agitated; however, remains sedated after he was given Ativan. VITAL SIGNS: Temperature 97.7 degrees, pulse 80, respirations 18, blood pressure 115/62. HEENT: Atraumatic, normocephalic. NECK: No masses. CHEST: Clear to auscultation. CARDIOVASCULAR: Regular rate and rhythm. ABDOMEN: Soft, obese. EXTREMITIES: Trace edema. NEUROLOGIC: The patient is arousable. : No bladder distention. SKIN: Skin is warm. LABORATORIES AND STUDIES: Ammonia level is 113. Sodium 139, potassium 4, chloride 103, CO2 is 25, BUN is 34, creatinine 4.3, glucose is 133. WBC 3.26, hemoglobin 7.9, hematocrit 24.1, platelets are 59,000. ASSESSMENT: A 61-year-old male with a history of nonalcoholic fatty liver disease status post liver transplant in 2008. Apparently has a recurrence of cirrhosis and had anemia secondary to his varices. Presented to the emergency department due to worsening confusion and agitation. He was found to have markedly elevated ammonia levels and due to his presenting symptoms, he will need hospitalization for further management. 1. Hepatic encephalopathy. 2. Liver cirrhosis. 3. End-stage renal disease. 4. Diabetes mellitus type 2. 5. Hypertension. PLAN: 1. We will admit patient to ICU. 2. We will start patient on lactulose, may have to give him lactulose retention enema. 3. We will consult nephrology for dialysis. 4. We will monitor blood glucose and put patient on sliding scale insulin regimen. 5. We will monitor blood pressure, resume antihypertensive agents. 6. We will put patient on DVT prophylaxis with SCDs. 7. We will continue to follow and reassess. cc: MD Fabricio Lowe MD
[2016-09-21] MEDS: HUMULIN R SUBQ SCH ×4 (06:08→21:20)
[2016-09-21] MEDS: SYNTHROID PO SCH (06:10)
[2016-09-21] MEDS: TUMS PO SCH ×3 (06:10→16:15)
--- NOTE | 2016-09-21 08:37 | Diag Imaging Result Document ---
PROCEDURE NAME: CHEST/ABD TUBE PLACEMENT - 09/21/2016 PORTABLE EXAM FOR NASOGASTRIC TUBE PLACEMENT, 0540 HOURS: FINDINGS: The nasogastric tube is difficult to visualize due to technical factors. The distal end of the nasogastric tube is questionably visible extending to the mid stomach. There are artifacts from overlying EKG wires. IMPRESSION: Nasogastric tube difficult to visualize due to technical factors. The distal end of the nasogastric tube is questionably visible extending to the mid stomach. Repeat exam is recommended for confirmation.
[2016-09-21] MEDS ORDERED: PRILOSEC PO SCH (09:00)
[2016-09-21] MEDS ORDERED: LACTULOSE PO SCH (09:00)
[2016-09-21] MEDS ORDERED: LACTULOSE ONE (11:04)
[2016-09-21] MEDS: CORGARD PO SCH (11:08)
--- NOTE | 2016-09-21 11:14 | Diag Imaging Result Document ---
PROCEDURE NAME: CHEST/ABD TUBE PLACEMENT - 09/21/2016 PORTABLE EXAM FOR NASOGASTRIC TUBE PLACEMENT, 0855 HOURS: FINDINGS: There is some limitation of detail due to technical factors and to multiple overlying EKG wires. There is what appears to represent the distal end of a nasogastric tube visible at the expected location of the mid stomach. The more proximal nasogastric tube is difficult to visualize. IMPRESSION: Tip of nasogastric tube probably in mid stomach.
[2016-09-21] MEDS: XIFAXAN PO SCH ×2 (11:48→21:21)
[2016-09-21] MEDS: SODIUM CHLORIDE 0.9% INJ SCH (11:48)
[2016-09-21] MEDS: LACTULOSE PO SCH ×4 (11:48→21:22)
[2016-09-21] MEDS: FOLIC ACID PO SCH (11:49)
[2016-09-21] MEDS: PROTONIX IV SCH (11:49)
[2016-09-21] MEDS: ATIVAN IV PRN (12:18)
--- NOTE | 2016-09-21 15:12 | Diag Imaging Result Document ---
PROCEDURE NAME: CHEST-PORTABLE - 09/20/2016 PORTABLE CHEST: COMPARISON: 08/15/2016. FINDINGS: There is stable cardiomegaly. The lungs appear clear. There is no pleural effusion or pneumothorax identified. Central venous catheter remains in place. IMPRESSION: Stable cardiomegaly. No other evidence of acute disease.
--- NOTE | 2016-09-21 18:10 | PROGRESS NOTE ---
DATE: 09/21/2016 Mr. Cortes is in ICU 14. Mr. Cortes who is a 61-year-old white gentleman, was admitted yesterday because of hepatic encephalopathy. He had a liver transplant in 2008. He also has endstage renal failure. His lab data done yesterday revealed hemoglobin of 7.9, hematocrit 24.1, INR was 1.22. revealed normal electrolytes. BUN was 34, creatinine 4.3. His blood sugar was 133, calcium was 7.7, bilirubin was 2.3. His AST was slightly elevated. Alkaline phosphatase was 111. His ammonia level was 113 which is higher, normally being from 16-60. Overall he is very drowsy. He was given Ativan earlier. His oxygen saturation is up about 100% at the present time. We will continue to watch him closely in the ICU. -6 cc: MD Fabricio Malcolm MD
[2016-09-22] MEDS ORDERED: NS 2,000 ML MISC PRN (07:04)
[2016-09-22] MEDS: HUMULIN R SUBQ SCH ×4 (07:16→20:45)
[2016-09-22] MEDS: SYNTHROID PO SCH (07:20)
[2016-09-22] MEDS: TUMS PO SCH ×3 (07:21→19:00)
--- NOTE | 2016-09-22 07:34 | EKG Report ---
Test Performed on : 09/20/2016 9:54:52 PM Test Reason : AMS Blood Pressure : / mmHG Vent. Rate : 071 BPM Atrial Rate : 071 BPM P-R Int : 204 ms QRS Dur : 094 ms QT Int : 460 ms P-R-T Axes : 031 067 048 degrees QTc Int : 499 ms Normal sinus rhythm. Prolonged QT Abnormal ECG When compared with ECG of 15-AUG-2016 21:30, premature ventricular complexes. are no longer present OR interval has decreased Unconfirmed Result
--- NOTE | 2016-09-22 07:36 | EKG Report ---
Test Performed on : 09/21/2016 00:44:14 AM Test Reason : AMS Blood Pressure : / mmHG Vent. Rate : 072 BPM Atrial Rate : 072 BPM P-R Int : 214 ms QRS Dur : 092 ms QT Int : 466 ms P-R-T Axes : 023 062 039 degrees QTc Int : 510 ms Sinus rhythm. with 1st degree AV block. Prolonged QT Abnormal ECG When compared with ECG of 20-SEP-2016 21:54, (Unconfirmed) No significant change was found Confirmed by Ramírez Cameron MD ([id number]) on 09/22/2016 4:03:00 PM
[2016-09-22 08:51] LABS: BASO% 0.7 % (0.0-0.8); EOS# 0.16 X1000 (0.0-0.7); EOS% 5.9 % (0.0-10.0); HEMATOCRIT 22.3 % (42.0-52.0); HEMOGLOBIN 7.3 g/dL (14.0-18.0); LYMPH# 0.64 X1000 (1.2-3.4); LYMPH% 23.7 % (20.5-51.1); MANUAL DIFF NEEDED? YES; MCH 34.6 PG (27-31); MCHC 32.7 g/dL (33-37); MCV 105.7 FL (81-99); MONO# 0.14 X1000 (0.11-0.59); MONO% 5.2 % (1.7-9.3); NEUT% 64.5 % (42.2-75.2); PLT 49 X1000 (130-400); RBC 2.11 XMIL (4.7-6.1)
--- NOTE | 2016-09-22 08:57 | PROGRESS NOTE ---
DATE: 09/22/2016 Level 3. SUBJECTIVE: Interval history was reviewed. Apparently, patient was admitted yesterday for altered mental status and shortness of breath. He is going for dialysis for chronic kidney disease. In fact, he had 2 units of packed RBCs on Thursday after dialysis and went home. Patient is well known to me from the previous hospitalization. He is also going to [facility] for upper GI bleeding on monthly basis for argon laser treatment for variceal bleeding. Apparently, patient was confused and combative. He was admitted in the ICU over the weekend under restraints. He pulled the NG tube out. He was given lactulose. He is awake and not able to follow with verbal comments. He is able to move all the extremities. Past medical history and medicines were reviewed. PHYSICAL EXAMINATION: Vital Signs: He is afebrile. Vitals are stable. HEENT Examination: Slightly pale. Awake. NG tube was seen. Chest: Clear. He has a dialysis catheter on the right side. Heart: Heart sounds are regular. Abdomen: Belly is soft, obese. Extremities: No edema, with chronic venous stasis changes noted. Mild asterixis noted. INVESTIGATIONS: Pending. Ammonia level 96. MICROBIOLOGY: Urine culture, gram-negative rods. Chest x-ray, port on the right side. NG tube was placed. No definite infiltrates noted. ASSESSMENT AND PLAN: 1. Altered mental status due to acute metabolic encephalopathy due to ammonia. Nasogastric tube. Continue on lactulose and Xifaxan. 2. Cirrhosis of liver due to ELENA, status post liver transplant, on immunosuppressive drugs, Prograf. 3. End-stage kidney disease, on dialysis as per Dr. Sanchez. 4. Portal hypertension, on nadolol. 5. Anemia due to chronic variocele bleeding. Transfuse as needed. 6. Diabetes. Follow up on sliding scale. 7. Urinary tract infection. We will start intravenous Levaquin after dialysis. Follow up on culture and sensitivity. 8. Plan of care discussed with the patient and as well as Dr. Sanchez. Follow up on the pending labs. LEVEL OF DOCUMENTATION: 35 minutes. cc: Fabricio Zavala MD MTDD
[2016-09-22 09:16] LABS: BANDS 8 % (0-1); LYMPHS 20 % (21-51); MONO 4 % (1-9)
[2016-09-22] MEDS ORDERED: HEPARIN ONE (09:18)
[2016-09-22] MEDS ORDERED: NS 2,000 ML ONE (09:18)
[2016-09-22 09:19] LABS: ALBUMIN 1.5 g/dL (3.5-5.0); CALCIUM 7.6 mg/dL (8.8-10.2); POTASSIUM 4.2 mmol/L (3.5-5.1); TOTAL BILIRUBIN 3.51 mg/dL (0.20-1.00)
--- NOTE | 2016-09-22 10:02 | Diag Imaging Result Document ---
PROCEDURE NAME: CHEST-PORTABLE - 09/22/2016 PORTABLE CHEST X-RAY, 09/22/2016: COMPARISON: 09/21/2016 FINDINGS: Stable right dialysis catheter and nasogastric tube in good position. Stable cardiomegaly and pulmonary vascular congestion. No overt edema or infiltrates. IMPRESSION: No change from prior. -8
--- NOTE | 2016-09-22 11:06 | CONSULTATION ---
DATE OF CONSULTATION: 09/22/2016 REASON FOR ADMISSION: Altered mental status. REASON FOR CONSULTATION: End-stage renal disease with assistance with medical management. CONSULTING PHYSICIAN: Dr. Zavala. HISTORY OF PRESENT ILLNESS: Mr. Cortes is a 61-year-old, white male who is known to our outpatient services for hemodialysis on Thursday, Thursday, Thursday at our [facility]. Patient subsequently has a history of nonalcoholic fatty liver disease, status post liver transplant from 2008 with recurrence of cirrhosis and esophageal banding. He presented to the emergency room after the family found him worsening with confusion and agitation. Patient's ammonia levels are elevated at this time. [facility] continues to monitor him for his liver transplant. Subsequently, due to his numbers and his altered mental status, the patient was admitted to the ICU for further evaluation. He is unable to participate in a ROS. He denies, chest pain or shortness of breathe. No complaints of nausea or recent emesis. No fever or chills at this time. PAST MEDICAL HISTORY: Nonalcoholic fatty liver disease and end-stage renal disease, diabetes mellitus type 2, hypothyroidism, and chronic anemia. PAST SURGICAL HISTORY: Liver transplant in 2008, history of a vasectomy, and he has a tunneled catheter placed into the right upper chest wall with noted possible esophageal banding. SOCIAL HISTORY: He has family who is attentive to his care. No history of smoking, alcohol, or illicit drug use. FAMILY HISTORY: No history of end-stage renal disease, coronary artery disease. CURRENT ALLERGIES: Listed as latex. MEDICATIONS: Tacrolimus, omeprazole, glipizide, lactulose, Xifaxan, levothyroxine, Questran, Januvia, nadolol, folic acid. Patient also receives Ferrlecit, protein X, Rocaltrol, and IV iron as indicated at the outpatient clinic. The patient is currently on Levaquin renal dosed. REVIEW OF SYSTEMS: Review of systems x10 as best obtained. Patient remains able to follow commands, though he has poor review of systems. VITAL SIGNS: His most recent vital signs, temperature is 98 degrees, blood pressure 105/58, heart rate 75, respirations 14. He is on room air. Last recorded saturation 100%. He has had 90 in. He has had 0 recorded out with 145 yesterday with need for dialysis assist. LABORATORY DATA: This a.m., sodium 139, potassium 4, chloride is 103, CO2 25, BUN 34, creatinine 4.3, glucose 133, his anion gap is 11, his calcium is 7.7. Ammonia 113, albumin 1.6, his alkaline phosphatase is 111, total bilirubin 2.3, AST of 47, ALT of 24. White count 3.26 , hemoglobin 7.9, hematocrit 24.1, with a platelet count of 59,000. ABGs indicate yesterday evening of a pH of 7.49, CO2 41, PO2 14 on room air with a bicarbonate of 29.4, with questionable results indicated. Urinalysis shows trace ketones, trace hematuria, positive for proteinuria, positive for urine epithelial cells, not reportable yeast, positive granular casts present. His drug screen Toxicology was essentially negative. Urine catheterization shows gram-negative rods in both bottles. PHYSICAL EXAMINATION: General: This is a 61-year-old, white male. He appears chronically ill. He is in no acute distress. Skin: Warm and dry. HEENT: Normocephalic, atraumatic. His conjunctivae are pale. He has pink sclerae with slight jaundice noted. Mucous membranes are dry. He has an NG tube currently clamped at this time with bloody material in the tubing. Neck: Supple. Trachea is midline. He has no JVD. Cardiovascular: He has regular rate and rhythm. He is without murmur or gallop appreciated. Lungs: Essentially clear. He is on room air. Equal excursion. Abdomen: Large, round, obese, slightly ballotable. Positive bowel sounds. Genitourinary: Not inspected. Patient has minimal void with dialysis assist. Extremities: Has trace pretibial edema. No clubbing or cyanosis. Neurological: As mentioned above, he is able to follow simple commands. Poor historian for review of systems. ASSESSMENT AND PLAN: 1. End-stage renal disease. Patient is due for his routine dialysis treatment today. We will place him on a 2 K bath. He is to dialyze for 3.5 hours. We will attempt to pull him to his dry weight. 2. Electrolytes. These remain stable. 3. Acid-base balance. This remains stable. 4. Anemia. This is low but no need for intervention at this time. 5. Altered mental status. Patient does continue with cirrhosis and encephalopathy. His abdomen remains taut, we will check an abdominal ultrasound. He is to receive his lactulose once nasogastric tube has verified placement. I would like to thank you for this consult on this kind gentleman and allowing us to follow with this patient. Seen, data reviewed, discussed with [place] on 09/22/16. I agree with the above assessment and plan of care. rg Dictated by EDWAR Walter for Mykel Sanchez MD cc: EDWAR Walter MD Jagan Reddy, MD [id number]
[2016-09-22] MEDS: PROGRAF PO SCH (13:40)
[2016-09-22] MEDS: LEVAQUIN 250 MG/D5W 250 MG/50 ML IVPB IV SCH (13:40)
[2016-09-22] MEDS: LACTULOSE PO SCH ×4 (13:41→20:45)
[2016-09-22] MEDS: CORGARD PO SCH (13:41)
[2016-09-22] MEDS: FOLIC ACID PO SCH (13:41)
[2016-09-22] MEDS: PROTONIX IV SCH (13:42)
[2016-09-22] MEDS: XIFAXAN PO SCH ×2 (15:04→20:45)
--- NOTE | 2016-09-22 15:29 | Diag Imaging Result Document ---
PROCEDURE NAME: US ABDOMEN-COMPLETE - 09/22/2016 ULTRASOUND ABDOMEN COMPLETE: COMPARISON: 02/28/2016. FINDINGS: The liver is significantly hyperechoic with poor sonographic penetration. No liver masses. The spleen is very enlarged. The spleen measures 22.4 x 9.3 cm. This is even more enlarged than it was previously. The kidneys are atrophic and hyperechoic. This is also stable from prior. The right kidney measures 9.8 x 3.6 x 5.7 cm. The left kidney measures 8.3 x 3.2 x 5.2 cm. The common bile duct measures 8 mm. Gallbladder is not present. The pancreas is obscured. No free fluid. IMPRESSION: 1. Severe fatty change of the liver. 2. Severe, increasing splenomegaly. 3. Hyperechoic, atrophic kidneys.
[2016-09-22] MEDS: ATIVAN IV PRN (20:45)
[2016-09-23 05:21] LABS: BASO% 0.5 % (0.0-0.8); EOS# 0.13 X1000 (0.0-0.7); EOS% 6.4 % (0.0-10.0); HEMATOCRIT 20.6 % (42.0-52.0); HEMOGLOBIN 6.5 g/dL (14.0-18.0); LYMPH# 0.56 X1000 (1.2-3.4); LYMPH% 27.7 % (20.5-51.1); MANUAL DIFF NEEDED? YES; MCH 33.7 PG (27-31); MCHC 31.6 g/dL (33-37); MCV 106.7 FL (81-99); MONO# 0.15 X1000 (0.11-0.59); MONO% 7.4 % (1.7-9.3); MPV 8.7 FL (7.4-10.4); PLT 47 X1000 (130-400); RBC 1.93 XMIL (4.7-6.1)
[2016-09-23 05:36] LABS: CALCIUM 7.8 mg/dL (8.8-10.2); POTASSIUM 3.8 mmol/L (3.5-5.1)
[2016-09-23] MEDS: HUMULIN R SUBQ SCH ×4 (06:22→20:59)
[2016-09-23] MEDS: SYNTHROID PO SCH (06:23)
[2016-09-23] MEDS: TUMS PO SCH ×3 (06:24→15:58)
[2016-09-23 06:49] LABS: BANDS 8 % (0-1); EOS 2 % (1-10); LYMPHS 22 % (21-51); MONO 2 % (1-9)
[2016-09-23 06:50] LABS: HYPOCHROM 1+
[2016-09-23 06:51] LABS: LARGE PLATELETS OCCASIONAL
[2016-09-23] MEDS: LACTULOSE PO SCH ×4 (08:12→21:00)
[2016-09-23] MEDS: CORGARD PO SCH (08:12)
[2016-09-23] MEDS: XIFAXAN PO SCH ×2 (08:12→21:00)
[2016-09-23] MEDS: FOLIC ACID PO SCH (08:12)
[2016-09-23] MEDS ORDERED: NS 500 ML ONE (10:07)
[2016-09-23] MEDS: SODIUM CHLORIDE 0.9% INJ SCH (10:24)
--- NOTE | 2016-09-23 10:49 | PROGRESS NOTE ---
DATE: 09/23/2016 SUBJECTIVE: He is more alert today. He still does not really remember what happened and he still is allowing his to answer most questions. OBJECTIVE: Vital Signs: Blood pressure 86/49, heart rate 71, respirations 15, afebrile. Intake 0.5 L, output 2.1 L. OBJECTIVE: General: No acute distress. Skin: Warm and dry. HEENT: Conjunctivae are pink. Neck: Neck veins not visible. Heart: Regular. Lungs: Have equal breath sounds. No crackles. Abdomen: Obese and soft. Bowel sounds present. Extremities: Have 2+ edema. No clubbing or cyanosis. LABORATORY DATA: Sodium 143, potassium 3.8, chloride 104, bicarbonate 26, BUN 32, creatinine 3.4, hemoglobin 6.5. IMPRESSION: 1. End-stage kidney disease. He had his routine dialysis yesterday. 2. Volume status acceptable. Blood pressure is on the low side but he still has edema. 3. Electrolytes/acid base in target. 4. Anemia. Hemoglobin is falling. He will receive 2 units packed red blood cells today. 5. Altered mental status. 6. Hepatic encephalopathy improving. cc: MD Fabricio Cervantes MD
[2016-09-23] MEDS: PROTONIX IV SCH (11:12)
[2016-09-23 13:13] LABS: HEPATITIS PROFILE ACUTE SEE COMMENTS
--- NOTE | 2016-09-23 18:26 | PROGRESS NOTE ---
DATE: 09/23/2016 SUBJECTIVE: ICU followup. His mental status slowly improving after the ammonia level is coming down. He had NG tube replaced and lactulose was given. Ammonia level 75. Patient was seen by Dr. Sanchez who performed the ultrasound of the abdomen. Results were discussed with him. Basically, enlarged spleen, hepatic steatosis and no ascites. Hepatitis panel showed he had a reactive hepatitis C antibody. This is something new. His mental status improving. OBJECTIVE: General: The patient is not reporting any complaints. Vital signs: He is afebrile, hemodynamics were stable, and input and output positive 1300 mL. Weight 252 pounds. HEENT: Pale, slightly icteric. NG tube was seen. Neck: Supple. Chest: Clear to auscultation. Heart: Sounds are regular. Tunneled catheter on the right side present. Abdomen: Belly is soft. Tissue edema noted. Suboptimal exam. No signs of peritonitis. Extremities: No peripheral edema. Neurologic: No obvious neurological deficits. No asterixis is present. LABORATORIES: CBC: White cell count 2. Hematocrit 20. Platelets 47,000. PT 13. INR 1.2. SMA7: Sodium 143, potassium 3.8, chloride 104, BUN 32, creatinine 3.4, glucose 106, calcium 7.8. Ammonia levels 75. Hepatitis panel positive for C antibody. INVESTIGATIONS: Ultrasound of the abdomen: Splenomegaly, hepatic steatosis. No significant ascites. ASSESSMENT AND PLAN: 1. Altered mental status due to ammonia encephalopathy. Improving. Discontinue nasogastric tube. We will begin with a diabetic diet. Continue on lactulose and Xifaxan. 2. Urinary tract infection due to Klebsiella oxytoca. Continue IV Levaquin 250 mg after dialysis. 3. Cirrhosis of liver due to nonalcoholic steatohepatitis. Now he is also reactive to hepatitis C antibody. We will check the viral load and genotype. 4. Diabetes. Continue on sliding scale with insulin coverage. 5. Anemia due to chronic gastrointestinal bleeding loss from chronic varices in the stomach with gastric antral vascular ectasia syndrome. Multiple argon laser treatment. Hematocrit 20. We will transfuse 2 units of packed red blood cells. 6. Status post liver transplant on Prograf. 7. End-stage kidney disease on dialysis. He will go for dialysis in the morning. Discussed with the patient's family and Dr. Sanchez. LEVEL OF DOCUMENTATION: 25 minutes. cc: Fabricio Zavala MD
[2016-09-23] MEDS: ATIVAN IV PRN (22:21)
[2016-09-24 05:47] LABS: CALCIUM 7.4 mg/dL (8.8-10.2); POTASSIUM 4.1 mmol/L (3.5-5.1)
[2016-09-24 06:00] LABS: BASO% 0.9 % (0.0-0.8); EOS# 0.19 X1000 (0.0-0.7); EOS% 8.5 % (0.0-10.0); HEMATOCRIT 22.7 % (42.0-52.0); HEMOGLOBIN 7.4 g/dL (14.0-18.0); LYMPH# 0.69 X1000 (1.2-3.4); LYMPH% 30.8 % (20.5-51.1); MANUAL DIFF NEEDED? YES; MCH 33.2 PG (27-31); MCHC 32.6 g/dL (33-37); MCV 101.8 FL (81-99); MONO# 0.15 X1000 (0.11-0.59); MONO% 6.7 % (1.7-9.3); MPV 8.5 FL (7.4-10.4); NEUT% 53.1 % (42.2-75.2); PLT 38 X1000 (130-400); RBC 2.23 XMIL (4.7-6.1)
[2016-09-24 06:32] LABS: BANDS 4 % (0-1); EOS 8 % (1-10); LYMPHS 28 % (21-51); MONO 2 % (1-9)
[2016-09-24] MEDS: TUMS PO SCH ×3 (06:38→16:00)
[2016-09-24] MEDS: SYNTHROID PO SCH (06:38)
[2016-09-24] MEDS: HUMULIN R SUBQ SCH ×4 (06:39→20:57)
[2016-09-24] MEDS ORDERED: NS 2,000 ML MISC PRN (07:04)
[2016-09-24] MEDS ORDERED: HEPARIN ONE (07:11)
[2016-09-24] MEDS: CORGARD PO SCH (08:18)
[2016-09-24] MEDS: PROGRAF PO SCH (08:18)
[2016-09-24] MEDS: FOLIC ACID PO SCH (08:18)
[2016-09-24] MEDS: XIFAXAN PO SCH ×2 (08:18→20:58)
[2016-09-24] MEDS: LACTULOSE PO SCH ×4 (08:18→20:58)
[2016-09-24] MEDS ORDERED: NS 500 ML ONE (08:21)
--- NOTE | 2016-09-24 08:38 | PROGRESS NOTE ---
DATE: 09/24/2016 SUBJECTIVE: In the last 24 hours, NG tube was discontinued. Patient is more alert and oriented. Advanced the diet, tolerating very well. REVIEW OF SYSTEMS: None reported. No headaches, no fever. Cardiopulmonary: No chest pain, shortness of breath. GI: Abdominal swelling. No tremors. No focal symptoms. Input and output are positive 2.2 L. PHYSICAL EXAMINATION: Vital Signs: He is afebrile, blood pressure is 80/30, weight 247 pounds. HEENT: Examination within normal limits. General: Slightly pale and icteric. Neck: Supple. No lymphadenopathy. Chest: Clear to auscultation. Heart: Heart sounds are regular. Abdomen: Belly is soft. A lot of tissue edema. Extremities: No peripheral edema. Chronic venous stasis changes noted. Neurological Examination: Oriented to time, place, and person. No asterixis noted. INVESTIGATIONS: White cell count 2.2, hematocrit 22, platelets 38,000. SMA 7 is normal except a BUN of 45, creatinine 4.3. ASSESSMENT AND PLAN: 1. Acute mental status changes, improved after ammonia level came back to normal. 2. 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 Recent panel was reactive to hepatitis C. We will follow up on hepatitis C, viral load and genotype. 3. End-stage kidney disease, on dialysis. 4. Anemia due to upper gastrointestinal bleeding. We will transfuse 2 units of packed RBC along with 1 unit of platelets. Given the risk factors of ongoing bleeding, he needs to 1 unit of platelets. 5. Resume home medications by mouth. 6. Portal hypertension, on nadolol. 7. Gastrointestinal prophylaxis with intravenous Protonix. 8. Urinary tract infection, on intravenous Levaquin. 9. Discussed with the patient and about the plan of care. LEVEL OF DOCUMENTATION: 25 minutes. cc: Fabricio Zavala MD
--- NOTE | 2016-09-24 10:45 | PROGRESS NOTE ---
DATE: 09/24/2016 SUBJECTIVE: He is feeling good today. No new specific complaints. OBJECTIVE: Vital Signs: Blood pressure 80/49, heart rate 66, respirations 18, afebrile. Intake 2.3 L. Output 0. General: No acute distress. Skin: Warm and dry. Eyes: Conjunctivae are pink. Pupils are equal. Neck: Neck veins are not appreciated. Heart: Regular. Lungs: Have equal breath sounds. Shallow. No crackles. Abdomen: Obese and soft. Bowel sounds present. Extremities: Have 1+ edema. No clubbing or cyanosis. LABORATORY DATA: Sodium 136, potassium 4.1, chloride 100, bicarbonate 27. BUN 45, creatinine 4.3. Hemoglobin 7.4. IMPRESSION: 1. Anemia with chronic gastrointestinal bleeding. He has plans for 2 units packed red blood cells today. 2. End-stage renal disease. He will receive his normal dialysis today, 2-4 L ultrafiltration if his blood pressure allows. 3. Hypotension. He is on no medicines, except for nadolol which affect the blood pressure. 4. Electrolytes/acid base, in target. cc: MD Fabricio Cervantes MD
[2016-09-24] MEDS: PROTONIX IV SCH (13:44)
[2016-09-24] MEDS: SODIUM CHLORIDE 0.9% INJ SCH (13:44)
[2016-09-24] MEDS: LEVAQUIN 250 MG/D5W 250 MG/50 ML IVPB IV SCH (14:16)
[2016-09-24] MEDS: ATIVAN IV PRN (20:57)
[2016-09-25 05:02] LABS: BASO% 0.5 % (0.0-0.8); EOS# 0.14 X1000 (0.0-0.7); EOS% 6.7 % (0.0-10.0); HEMATOCRIT 24.8 % (42.0-52.0); HEMOGLOBIN 8.2 g/dL (14.0-18.0); LYMPH# 0.48 X1000 (1.2-3.4); LYMPH% 23.1 % (20.5-51.1); MANUAL DIFF NEEDED? YES; MCH 32.4 PG (27-31); MCHC 33.1 g/dL (33-37); MONO# 0.14 X1000 (0.11-0.59); MONO% 6.7 % (1.7-9.3); MPV 9.2 FL (7.4-10.4); PLT 41 X1000 (130-400); RBC 2.53 XMIL (4.7-6.1)
[2016-09-25 05:28] LABS: CALCIUM 7.5 mg/dL (8.8-10.2); POTASSIUM 3.8 mmol/L (3.5-5.1)
[2016-09-25] MEDS: HUMULIN R SUBQ SCH ×4 (06:27→20:56)
[2016-09-25] MEDS: TUMS PO SCH ×3 (06:28→17:21)
[2016-09-25] MEDS: SYNTHROID PO SCH (06:28)
[2016-09-25] MEDS: LACTULOSE PO SCH ×2 (08:03→12:24)
[2016-09-25] MEDS: XIFAXAN PO SCH ×2 (08:48→20:57)
[2016-09-25] MEDS: CORGARD PO SCH (08:48)
[2016-09-25] MEDS: FOLIC ACID PO SCH (08:48)
--- NOTE | 2016-09-25 10:52 | PROGRESS NOTE ---
DATE: 09/25/2016 SUBJECTIVE: Mr. Cortes is resting quietly in bed. He does respond to verbal stimuli. He is confused to most recent events. Denies any increased work of breathing or chest pain. OBJECTIVE: His most recent vital signs are temperature 98.1 degrees, blood pressure 100/49, heart rate 74, respirations are 16. He is on room air. Last recorded saturation is 100%. He has had 1520 in. He has had 700 out on dialysis yesterday. LABS: Sodium 140, potassium 3.8, chloride 105, CO2 27, BUN 33, creatinine 3.1, glucose 120, his anion gap is 8, calcium 7.5, his ammonia level is 179 up from 75. His white count 2.08, hemoglobin 8.2, hematocrit 24.8, platelet count 41,000. PHYSICAL EXAMINATION: General: This is a 61-year-old, white male. He is currently resting in bed. Head of the bed is elevated. He is in no acute distress. He appears chronically ill. Skin: Warm and dry. HEENT: Normocephalic, atraumatic. Conjunctivae pink. He has CRESCENCIO. Mucous membranes moist. No edema. No JVD appreciated. Cardiovascular: He is regular rate and rhythm. No murmur or gallop appreciated. Lungs: Clear to auscultation anterior. They remain shallow, equal excursion. Abdomen: Large, firm, nontender. Positive bowel sounds. Genitourinary: Not inspected. Minimal void with dialysis assist. Extremities: Continues with 1+ lower extremity edema. No clubbing or cyanosis. Neurological: Patient is alert to person. ASSESSMENT AND PLAN: 1. End-stage renal disease. Patient had his routine dialysis yesterday, no indications for intervention today. 2. Altered mental status with confusion. His ammonia level has risen. It is 179 with lactulose orders on chart. This is followed by GI and primary care team. 3. Anemia. The patient continues with chronic gastrointestinal bleeding. He had received 2 units of packed red blood cells yesterday. 4. Electrolytes and acid-base balance. These remain stable. 5. Hypotension. This remains stable at this time. I would to thank you for allowing us to follow with this patient. Seen, data reviewed, discussed with [place] on 09/25/16. I agree with the above assessment and plan of care. rg Dictated by EDWAR Wlater for Mykel Sanchez MD cc: EDWAR Walter MD Jagan Reddy, MD [facility] CENTERPatricia
[2016-09-25] MEDS: PROTONIX IV SCH (11:26)
[2016-09-25] MEDS: SODIUM CHLORIDE 0.9% INJ SCH (11:26)
[2016-09-25 13:11] LABS: HCV BY PCR SEE COMMENTS; HCV CHARGE YES
[2016-09-25] MEDS ORDERED: LACTULOSE MISC ONE (13:47)
[2016-09-25] MEDS ORDERED: NON-FORMULARY BULK MED PR ONE (14:00)
--- NOTE | 2016-09-25 19:17 | PROGRESS NOTE ---
DATE: 09/25/2016 SUBJECTIVE: Status post 4 units of packed RBCs. Had dialysis yesterday. He was more confused yesterday afternoon. The patient is not oriented. REVIEW OF SYSTEMS: None reported.Vitals: Are stable. Patient is confused. Chest: Clear. Heart: Sounds are regular. Abdomen: Belly is soft, obese, nontender. Good bowel sounds. Extremities: No peripheral edema. INVESTIGATIONS: CBC: White cell count 2.0, hematocrit 24.8, platelets 41,000. SMA 7: Sodium 140, potassium 3.8, chloride 105. BUN 33, creatinine 3.1. Glucose 120. Calcium 7.5. Ammonia 179. Hepatitis DNA PCR was negative. ASSESSMENT AND PLAN: 1. Acute mental confusion due to ammonia encephalopathy. Plan is lactulose by mouth if he can take it. We will give enema 2. Hepatitis C PCR DNA was negative. 3. Ongoing gastrointestinal bleeding. Status post 4 units of packed RBCs. 4. Disposition. I had a long discussion with the patient's the about the palliative services. She is going to discuss with other family members. Continue supportive care. 5. End-stage kidney disease on hemodialysis as needed. Prognosis is poor. Family has been planning for advanced directives and palliative services. Level of dictation and documentation time 25 minutes. cc: Fabricio Zavala MD MTDD
[2016-09-25 20:23] LABS: HEPATITIS C GENOTYPE SEE COMMENTS
[2016-09-26 04:35] LABS: MANUAL DIFF NEEDED? NO
[2016-09-26 04:54] LABS: BASO% 0.4 % (0.0-0.8); EOS% 7.6 % (0.0-10.0); HEMATOCRIT 25.7 % (42.0-52.0); HEMOGLOBIN 8.6 g/dL (14.0-18.0); LYMPH# 0.64 X1000 (1.2-3.4); LYMPH% 24.2 % (20.5-51.1); MCH 32.7 PG (27-31); MCHC 33.5 g/dL (33-37); MCV 97.7 FL (81-99); MONO# 0.16 X1000 (0.11-0.59); MONO% 6.1 % (1.7-9.3); MPV 8.4 FL (7.4-10.4); NEUT% 61.7 % (42.2-75.2); RBC 2.63 XMIL (4.7-6.1)
[2016-09-26 05:31] LABS: PLT 38 X1000 (130-400)
[2016-09-26] MEDS: HUMULIN R SUBQ SCH ×4 (06:24→20:40)
[2016-09-26] MEDS: SYNTHROID PO SCH (06:25)
[2016-09-26] MEDS: TUMS PO SCH ×3 (06:25→16:00)
[2016-09-26] MEDS ORDERED: HEPARIN IV PRN (07:04)
[2016-09-26] MEDS ORDERED: TIGHT: 0.2 ML/HR MISC PRN (07:04)
[2016-09-26] MEDS ORDERED: NS 2,000 ML MISC PRN (07:04)
[2016-09-26] MEDS ORDERED: LACTULOSE PO ONE ×3 (07:52→17:00)
[2016-09-26] MEDS: FOLIC ACID PO SCH (07:59)
[2016-09-26] MEDS: CORGARD PO SCH (07:59)
[2016-09-26] MEDS: XIFAXAN PO SCH ×2 (07:59→20:40)
[2016-09-26] MEDS: PROGRAF PO SCH (07:59)
[2016-09-26] MEDS ORDERED: NS 2,000 ML ONE (08:14)
[2016-09-26] MEDS: PROTONIX IV SCH (12:39)
[2016-09-26] MEDS: SODIUM CHLORIDE 0.9% INJ SCH (12:39)
[2016-09-26] MEDS: LEVAQUIN 250 MG/D5W 250 MG/50 ML IVPB IV SCH (13:53)
--- NOTE | 2016-09-26 14:23 | Diag Imaging Result Doc PS360 ---
EXAM: HEAD W/O CONTRAST HISTORY: Altered mental state. TECHNIQUE: CT of the head without contrast and with dose reduction (clarity) COMMENT: There are calcifications in the left globus pallidus. There is no evidence of mass effect bleed or abnormal extra-axial fluid collection. Compared to 05/22/2015 there is been no significant change in the appearance of the brain. There is some fluid in the mastoid air cells particularly the right posterior. Compared to the previous study this is worsened on the right and improved on the left. IMPRESSION: No evidence of acute intracranial disease. Mastoid effusions as described. Electronically signed by Enzo Zaman 09/26/2016 2:20 PM
--- NOTE | 2016-09-26 14:39 | PROGRESS NOTE ---
DATE: 09/26/2016 SUBJECTIVE: His eyes are open, but he is really not able to interact today. OBJECTIVE: Vital Signs: Blood pressure 130/84, heart rate 70, respirations 19, afebrile. Generally: He is in no acute distress. Skin: Warm and dry. Neck: Neck veins are not appreciated. Heart: Regular. No gallops. Lungs: Have equal breath sounds, shallow. No crackles. Abdomen: Obese and soft. Bowel sounds are present. Extremities: Have 2+ edema. No clubbing or cyanosis. LABORATORY DATA: None today. IMPRESSIONS: 1. End-stage kidney disease. He will have his next routine hemodialysis today. 2. Anemia, improved, but still below target. Observe. 3. Altered mental status. We will check blood cultures and CT brain. cc: MD Fabricio Cervantes MD
--- NOTE | 2016-09-26 18:12 | PROGRESS NOTE ---
DATE: 09/26/2016 SUBJECTIVE: Last 24 hours patient remains confused. NG tube was taken out. He was given 2 doses of lactulose 1 by mouth, another 1 is enema. His ammonia levels coming back less than 100 but mental status has not improved. He was given 4 units of packed RBCs and 1 unit of platelets. REVIEW OF SYSTEMS: None reported due to mental confusion. PAST MEDICAL HISTORY: Medicines were reviewed. PHYSICAL EXAMINATION: Vital signs: He is afebrile and weight 261 pounds. Blood pressure is 90/46. HEENT exam: Awake and not able to follow with verbal comments, confused. Exam is suboptimal due to morbid obesity. Chest: Clear. Heart: Sounds are regular. Belly: Soft, nontender. Good bowel sounds. Extremities: No peripheral edema. INVESTIGATIONS: CBC: White cell count 2.6, hematocrit 25.7, platelets 38,000. SMA 7. Creatinine is 3.1. Ammonia level 88. Hepatitis C genotype and RNA not detected. ASSESSMENT AND PLAN: 1. 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 He was given 4 units of packed RBC, 1 unit of platelets. Continue on lactulose by mouth and enema until the ammonia level comes back to below 50. 2. Urinary tract infection on intravenous Levaquin. 3. End-stage kidney disease on dialysis. Continue present medical therapy. Prognosis is poor. Discussed with the patient's . She has not decided any advanced directives at this time. Will readdress the issue on Thursday. Will also discuss with Dr. Sanchez. At this time his prognosis is not good. So far he has received close to 70.000 mL of blood. LEVEL OF DOCUMENTATION: 25 minutes. cc: Fabricio Zavala MD MTDD
[2016-09-27] MEDS: ATIVAN IV PRN (01:15)
[2016-09-27 06:06] LABS: MANUAL DIFF NEEDED? NO
[2016-09-27] MEDS: HUMULIN R SUBQ SCH ×3 (06:25→16:00)
[2016-09-27] MEDS: SYNTHROID PO SCH (06:26)
[2016-09-27] MEDS: TUMS PO SCH ×3 (06:26→18:33)
[2016-09-27 06:29] LABS: CALCIUM 7.5 mg/dL (8.8-10.2); POTASSIUM 3.9 mmol/L (3.5-5.1)
[2016-09-27 06:50] LABS: EOS# 0.18 X1000 (0.0-0.7); EOS% 8.8 % (0.0-10.0); HEMATOCRIT 22.5 % (42.0-52.0); HEMOGLOBIN 7.5 g/dL (14.0-18.0); LYMPH# 0.56 X1000 (1.2-3.4); LYMPH% 27.5 % (20.5-51.1); MCHC 33.3 g/dL (33-37); MCV 99.1 FL (81-99); MONO# 0.16 X1000 (0.11-0.59); MONO% 7.8 % (1.7-9.3); MPV 9.1 FL (7.4-10.4); NEUT% 55.9 % (42.2-75.2); RBC 2.27 XMIL (4.7-6.1)
[2016-09-27 07:11] LABS: PLT 39 X1000 (130-400)
[2016-09-27] MEDS: CORGARD PO SCH (10:05)
[2016-09-27] MEDS: FOLIC ACID PO SCH (10:06)
[2016-09-27] MEDS: XIFAXAN PO SCH (10:06)
--- NOTE | 2016-09-27 11:32 | Diag Imaging Result Doc PS360 ---
EXAM: CHEST-PORTABLE HISTORY: NG placement verification TECHNIQUE: AP at 1110 portable COMMENT: The NG tube tip is in the stomach. IMPRESSION: NG tube as described. Electronically signed by Enzo Zaman 09/27/2016 11:30 AM
[2016-09-27] MEDS: PROTONIX IV SCH (11:46)
[2016-09-27] MEDS: SODIUM CHLORIDE 0.9% INJ SCH (11:47)
[2016-09-27] MEDS ORDERED: LACTULOSE PO SCH ×2 (12:00)
--- NOTE | 2016-09-27 14:08 | PROGRESS NOTE ---
DATE: 09/27/2016 SUBJECTIVE: Patient much more obtunded this morning and ammonia level has risen from 46 up to 272. OBJECTIVE: Vital Signs: Afebrile, pulse 68, respirations 12, blood pressure 104/62, O2 saturation room air 98%-100%. CV: RRR. Lungs: CTA. Abdomen: Protuberant. Hypoactive bowel sounds. Extremities: No edema. LAB DATA: Shows blood sugar 154, sodium 142, potassium 3.9, chloride 107, CO2 27, BUN 34, creatinine 3.0, ammonia 272. White count 2.04, and hemoglobin 7.5, platelets 39,000, stable. ASSESSMENT: 1. Hepatic encephalopathy. 2. History of liver transplant. 3. End stage renal disease on hemodialysis per Dr. Sanchez. 4. Urinary tract infection. On Levaquin. 5. Pancytopenia. 6. Gastrointestinal bleeding. PLAN: At this time replace NG tube and restart lactulose via NG tube JODI. Discussed in detail with patient's and she is aware of the grim nature of the disease process and great potential of him not surviving. We will continue the lactulose to try to improve the situation at their request. Follow labs. cc: MD Fabricio Rodrigues MD
--- NOTE | 2016-09-27 17:29 | PROGRESS NOTE ---
DATE: 09/27/2016 SUBJECTIVE: He is essentially unresponsive today. OBJECTIVE: Vital Signs: Blood pressure 114/63, heart rate 63, respirations 16, afebrile. Intake 500 mL. Output 3 L. General: No acute distress. Skin: Warm and dry. HEENT: Conjunctivae are pink. Oropharynx is dry. Neck: Neck veins are not appreciated. Heart: Regular with no gallops or murmurs. Lungs: Have equal breath sounds. No crackles. Abdomen: Soft, obese, nontender. Bowel sounds present. Extremities: Have 2+ edema. LABORATORY DATA: Sodium 142, potassium 3.9, chloride 107, bicarbonate 27, BUN 34, creatinine 3.0. Hemoglobin 7.5. IMPRESSION: 1. Encephalopathy. NG tube was placed in order to continue his lactulose therapy. The family is interested in transfer to [facility]. Dr. Zavala can address this on Thursday. I cannot imagine that he is a liver transplant candidate but obviously will defer to [facility]. 2. ESRD. His next planned dialysis will be on Thursday. 3. Anemia. He will likely need a transfusion again tomorrow. cc: MD Fabricio Cervantes MD
[2016-09-27 18:39] VITALS: BP 117/62
--- NOTE | 2016-09-29 21:43 | DISCHARGE SUMMARY ---
ADMISSION DATE: 09/20/2016 DISCHARGE DATE: 09/27/2016 DISCHARGING DIAGNOSES: 1. Altered mental status due to metabolic encephalopathy. 2. Anemia due to chronic blood loss from the gastric antral vascular ectasia syndrome. 3. End-stage kidney disease on dialysis. 4. Cirrhosis due to nonalcoholic steatohepatitis. 5. Type 2 diabetes. 6. Gout. 7. Hypertension. 8. Hypogonadism. 9. Hypothyroidism. 10. Pancytopenia due to hypersplenism. 11. Umbilical hernia. 12. Sleep apnea. 13. History of subacute bacterial peritonitis. 14. Urinary tract infection due to Klebsiella sensitive to Levaquin. CONSULT: Dr. Sanchez. PROCEDURES: 1. Hemodialysis. 2. NG-tube with lactulose insertion. 3. Transfusion of 4 units of packed RBC along with platelets. BRIEF HISTORY: Please see the H and P that was done by Dr. Cedeno, hospitalist. In brief he is a 61-year-old morbidly obese with above problems was admitted to the hospital with altered mental status due to ammonia, encephalopathy. Patient was admitted in ICU. Patient was given NG-tube with lactulose and Xifaxan. Follow up ammonia levels come back normal, his symptoms were much improved. During this time he was anemic as well as low platelet count. Patient was given 4 units of packed RBC along with 1 unit of platelets. Despite adequate hematological support he continues to have worsening of mental status changes due to ammonia encephalopathy. He was not able to control the agitations requiring restraints. Dr. Sanchez did hepatitis C panel which was reactive but subsequently hepatitis RNA virus none detected. All his symptoms due to ELENA. Because of the cirrhosis of liver due to ELENA he has been on the waiting list for kidney as well as liver transplant. I had long discussion with patient about palliative services and DNR level. The family has not decided yet. LABORATORIES: At the time of transfer. CBC: White cell count 2, hematocrit 22, platelets 39,000. SMA 7, sodium 142, potassium 3.9, chloride 107, BUN 34, creatinine 3.3, glucose 127. Hepatitis C RNA was negative. Chest x-ray was stable. At the request of the family patient has been transferred to [facility] in a stable condition. TRANSFER MEDICINE: Oxygen as needed, NG-tube with lactulose, continue hemodialysis and IV Levaquin 250 after dialysis for UTI, Synthroid 100 mcg daily, nadolol 20 daily, Prilosec 40 daily, Xifaxan 550 p.o. b.i.d., Januvia 25 mg p.o. b.i.d., tacrolimus 1 mg as directed, glipizide 10 p.o. b.i.d. as needed, folic acid 1 mg daily. His prognosis is grave. cc: MD Dr. Corina Cervantes
--- NOTE | 2016-10-08 10:53 | PROVIDER DOCUMENTATION ---
This chart was entered by Donna Felder Scribe, acting as scribe for Curry Loera MD. HPI-Neurological Disorder - General Chief Complaint: Altered Mental Status Stated Complaint: ams Time Seen by Provider: 09/20/16 22:25 Source: patient Allergies/Adverse Reactions: Patient Allergies Allergy/AdvReac Type Severity Reaction Status Date / Time latex Allergy Unknown RASH Verified 10/05/16 20:42 iron sucrose complex * Allergy ABDOMINAL Verified 10/05/16 20:42 [From Venofer] PAIN Home Medications: Home Medication List Medication Instructions Recorded Confirmed Last Taken Type Omeprazole 40 mg PO DAILY 08/09/13 10/05/16 10/04/16 History Tacrolimus 1 mg PO DIRECTED 08/09/13 10/05/16 09/20/16 08:00 History Glipizide [Glipizide Xl] 10 mg PO BID 05/21/15 10/05/16 10/04/16 History Rifaximin [Xifaxan] 550 mg PO BID #60 tablet 06/06/15 10/05/16 10/05/16 Rx Cholestyramine [Questran] 4 gm PO BID PRN 06/15/16 10/05/16 10/04/16 History Dicyclomine [Bentyl Liquid] 10 mg PO TID PRN 06/15/16 10/05/16 10/05/16 History Levothyroxine Sodium [Synthroid] 125 microgm PO DAILY 06/15/16 10/05/16 History Calcium Carbonate [Tums] 300 mg PO TID AC 08/16/16 10/05/16 10/05/16 History Folic Acid 1 mg PO DAILY 08/16/16 10/05/16 10/04/16 History Nadolol 20 mg PO DAILY 08/16/16 10/05/16 10/05/16 History Sitagliptin Phosphate [Januvia] 25 mg PO DAILY 08/16/16 10/06/16 10/04/16 History Cyclobenzaprine HCl [Flexeril] 5 mg PO TID PRN PRN 09/20/16 10/05/16 10/05/16 History Darbepoetin Boogie [Aranesp] 0.5 ml SUBQ DIRECTED 10/05/16 10/05/16 Unknown History Ferrous Sulfate [Feosol] 325 mg PO TID 10/05/16 10/05/16 10/05/16 History Metoclopramide HCl [Reglan] 5 mg PO DAILY 10/05/16 10/05/16 10/04/16 History Lactulose 45 ml PO DIRECTED 10/06/16 10/06/16 Unknown History Metoclopramide HCl [Reglan] 5 mg PO DIRECTED 10/06/16 10/06/16 Unknown History Octreotide Acetate 50 mcg IJ TID 10/06/16 10/06/16 Unknown History - History of Present Illness-Neuro Nature of Presenting Problem: Pt is a 61 yom who came to the ED with a cc of AMS. Pt reports that her has been confused all day, which he has a hx of because he has liver and kidney disease. Severity: reports: moderate Onset/Duration: reports: this afternoon Timing: reports: still present Character of Altered Mental Status: reports: disoriented, combative, agitated Character of Deficits: reports: altered sensation New weakness or altered sensation location:: reports: none Cognitive Baseline: poor alertness Similar Symptoms Previously?: Yes Recently seen or treated by another doctor?: No Review of Systems - Adult - REVIEW OF SYSTEMS - ADULT Constitutional: denies: chills, fever Eyes: reports: no symptoms reported Ears, Nose, Mouth & Throat: reports: no symptoms reported Cardiovascular: reports: no symptoms reported Respiratory: reports: no symptoms reported Gastrointestinal: denies: diarrhea, nausea, vomiting Genitourinary: reports: no symptoms reported Musculoskeletal: reports: no symptoms reported Integumentary: reports: no symptoms reported Neurological: reports: other (AMS). denies: loss of balance, seizure Psychiatric: reports: no symptoms reported Endocrine: reports: no symptoms reported Hematologic/Lymphatic: reports: no symptoms reported Allergic/Immunologic: reports: no symptoms reported All Other Systems: Reviewed and Negative Past History - Adult - PAST MEDICAL HISTORY-ADULT Review of Records: reports: Nursing Assessment Review Major Childhood Illnesses: reports: denies history Cardiovascular: reports: HTN Respiratory: reports: denies history Gastrointestinal: reports: denies history Obstetrical/Gynecological: reports: denies history Genitourinary: reports: other (1/2 renal function ) Musculoskeletal: reports: denies history Neurological: reports: denies history Endocrine/Immune: reports: Diabetes, thyroid disorder Other Conditions: reports: denies history - PRIOR SURGERIES/PROCEDURES Surgical/Procedure History: reports: other (liver transplant ) - IMMUNIZATION STATUS Childhood Immunizations: See Nurse Assessment Flu Vaccine: See Nurse Assessment - FAMILY HISTORY Family History: reviewed, not pertinent Physical Exam- Neurological - Physical Exam-Neuro Initial Vital Signs Reviewed: Yes General Appearance: mild distress, combative Eye Exam: bilateral eye: normal inspection, PERRL HENMT: normocephalic/atraumatic, moist mucous membranes Head Injury: no evidence of injury Neck: non-tender, full range of motion Respiratory: chest non-tender, lungs clear, normal breath sounds Cardiovascular: normal peripheral pulses, regular rate, rhythm Abdominal Exam: normal bowel sounds, non tender Extremity: normal range of motion, non-tender Neurologic: other (Confused) Integumentary: normal color, normal turgor Psych/Mental Status: normal mood/affect, normal thought content, normal thought process, oriented x 3 - Glascow Coma Scale Best Eye Response: (4) open spontaneously Best Verbal Response: (3) inappropriate words Best Motor Response: (5) localizes to pain Total Glascow Score: 12 Progress - PLAN OF CARE/RESULTS Result Diagrams: 09/27/16 06:00 09/27/16 06:00 Departure - Departure Date of Disposition Decision: 09/21/16 Time of Disposition Decision: 00:34 DIAGNOSIS: Chronic renal insufficiency, Altered mental status Disposition: ADMITTED INPATIENT 09 Certified Medical Emergency: Emergent Condition: Critical - Critical Care Note This patient required my direct & personal management of CC.: Yes Total Time (mins): 30 Critical Care Statement: This patient required my direct personal management to treat or rule out processes, the absence of which, could potentiallly result in sudden, clinically significant life or limb threatening deterioration. This chart was documented by the indicated scribe, (Donna Felder Scribe) and accurately reflects the services I performed and decisions made by me, Curry Loera MD, as attested by the provider's signature.
== END 2016-09-27 19:32 | disposition short-term general hospital (02) ==
LOC: ED 21:33 → SUATTDRO 21:34 → 4N 21:34 → ICU 09-21 00:43
PROVIDERS: ADMIT Internal Medicine; ATTEND Internal Medicine

== ENCOUNTER 2016-10-05 20:07 | Inpatient (IN) ==
[2016-10-05 20:22] LABS: ALLEN TEST YES; BE -0.2 mmoll (-3.0-3.0); BLOOD TYPE ARTERIAL; DRAW SITE R RADIAL; METHB 1.4 % (0.0-1.5); O2(CT) 10.1 mL/dL (15.0-23.0); PCO2(98.6) 33 mmHg (35-45); PO2(98.6) 95 mmHg (60-100); SAMPLE BLOOD; SAO2 99.4 % (95.0-100.0); THB 7.4 g/dL (11.5-17.4); pH(98.6) 7.46 (7.35-7.45)
[2016-10-05 20:23] LABS: MODALITY ROOM AIR
[2016-10-05 20:43] LABS: URINE CULTURE NEEDED? NO; URINE MICRO REVIEW NEEDED? NO; URINE SOURCE CLEAN CATCH
[2016-10-05 20:45] LABS: MANUAL DIFF NEEDED? NO
[2016-10-05 20:48] LABS: BILIRUBIN URINE NEGATIVE (NEGATIVE); BLOOD URINE TRACE (NEGATIVE); COLOR YELLOW; GLUCOSE URINE NEGATIVE (NEGATIVE); LEUKOCYTES URINE NEGATIVE (NEGATIVE); NITRITE URINE NEGATIVE (NEGATIVE); PH URINE 5.5; PROTEIN URINE 50 mg/dL (NEGATIVE); SP GRAVITY URINE 1.028; TURBIDITY URINE CLEAR (CLEAR); UROBILINOGEN URINE NORMAL (NORMAL)
[2016-10-05 20:49] LABS: UR EPITHELIAL CELLS <10 /HPF (<10); URINE BACTERIA NEGATIVE /HPF; URINE RBC <10 /HPF (<10); URINE WBC <10 /HPF (<10)
--- NOTE | 2016-10-05 20:50 | PROVIDER DOCUMENTATION ---
This chart was entered by Mayito Mullen Scribe, acting as scribe for Vikas Lewis MD. HPI-General Adult - General Stated Complaint: unresponsive Time Seen by Provider: 10/05/16 20:11 Source: EMS Unable to obtain history due to:: altered Allergies/Adverse Reactions: Patient Allergies Allergy/AdvReac Type Severity Reaction Status Date / Time latex Allergy Unknown RASH Verified 10/05/16 20:42 iron sucrose complex * Allergy ABDOMINAL Verified 10/05/16 20:42 [From Venofer] PAIN Home Medications: Home Medication List Medication Instructions Recorded Confirmed Last Taken Type Omeprazole 40 mg PO DAILY 08/09/13 10/05/16 10/04/16 History Tacrolimus 1 mg PO DIRECTED 08/09/13 10/05/16 09/20/16 08:00 History Glipizide [Glipizide Xl] 10 mg PO BID 05/21/15 10/05/16 10/04/16 History Lactulose 30 ml PO TID #600 udc 06/06/15 10/05/16 10/05/16 Rx Rifaximin [Xifaxan] 550 mg PO BID #60 tablet 06/06/15 10/05/16 10/05/16 Rx Cholestyramine [Questran] 4 gm PO BID PRN 06/15/16 10/05/16 10/04/16 History Dicyclomine [Bentyl Liquid] 10 mg PO TID PRN 06/15/16 10/05/16 10/05/16 History Levothyroxine Sodium [Synthroid] 125 microgm PO DAILY 06/15/16 10/05/16 History Calcium Carbonate [Tums] 300 mg PO TID AC 08/16/16 10/05/16 10/05/16 History Folic Acid 1 mg PO DAILY 08/16/16 10/05/16 10/04/16 History Nadolol 20 mg PO DAILY 08/16/16 10/05/16 10/05/16 History Sitagliptin Phosphate [Januvia] 25 mg PO BID 08/16/16 10/05/16 10/04/16 History Cyclobenzaprine HCl [Flexeril] 5 mg PO TID PRN PRN 09/20/16 10/05/16 10/05/16 History Darbepoetin Boogie [Aranesp] 0.5 ml SUBQ DIRECTED 10/05/16 10/05/16 Unknown History Ferrous Sulfate [Feosol] 325 mg PO TID 10/05/16 10/05/16 10/05/16 History Metoclopramide HCl [Reglan] 5 mg PO DAILY 10/05/16 10/05/16 10/04/16 History - History of Present Illness -Gen Adult Nature of Presenting Problems: Pt is a 61 yowm who presents to ER via EMS after being found on couch by family who was unable to arouse pt. Pt was seen at this facility 1 week ago with elevated ammonia levels and was moderately combative (kicking, yelling, spitting ). Pt has hx of dialysis and liver cirrhosis. On arrival, pt is obtunded, but is 99% on RA non-labored breathing. EMS reports that pt was cold to the touch when they arrived on scene, but all of pt's vitals were within normal limits with the exception of pt's B/P (267 systolic) Location of Pain/Injury: reports: none Pain Radiation: reports: no radiation Severity: reports: moderate Onset/Duration: reports: just prior to arrival Timing: reports: still present Associated Symptoms: reports: other (decreased responsiveness; limited due to condition) Similar Symptoms Previously?: Yes Recently seen or treated by another doctor?: Yes Review of Systems - Adult - REVIEW OF SYSTEMS - ADULT ROS:: limited per condition Constitutional: denies: chills, fever, fatique, night sweats, weight gain, weight loss Eyes: reports: no symptoms reported Ears, Nose, Mouth & Throat: reports: no symptoms reported Cardiovascular: reports: no symptoms reported Respiratory: reports: no symptoms reported Gastrointestinal: reports: no symptoms reported Genitourinary: reports: no symptoms reported Musculoskeletal: reports: no symptoms reported Integumentary: reports: no symptoms reported Neurological: reports: no symptoms reported Psychiatric: reports: no symptoms reported Endocrine: reports: no symptoms reported Hematologic/Lymphatic: reports: no symptoms reported Allergic/Immunologic: reports: no symptoms reported All Other Systems: Reviewed and Negative Past History - Adult - PAST MEDICAL HISTORY-ADULT Review of Records: reports: Nursing Assessment Review, Medications Reviewed Cardiovascular: reports: HTN Genitourinary: reports: other (1/2 renal function ) Endocrine/Immune: reports: Diabetes, thyroid disorder - PRIOR SURGERIES/PROCEDURES Surgical/Procedure History: reports: other (liver transplant ) - IMMUNIZATION STATUS Childhood Immunizations: See Nurse Assessment Flu Vaccine: See Nurse Assessment Physical Exam-General - CONSTITUTIONAL General Appearance: moderate distress, obese, lethargic, obtunded. negative: appears well, alert (pt awake but not alert) - EYES Eyes: PERRL/EOMI, pink conjunctivae. negative: photophobia, sclera injected, scleral icterus - HEAD, EARS, NOSE, MOUTH & THROAT HENMT: normocephalic/atraumatic, moist mucous membranes, normal ENT inspection, TMs normal, pharynx normal. negative: pharyngeal erythema, tonsillar exudate, TM abnormal - NECK Neck: non-tender, full range of motion, supple, normal inspection. negative: C- spine tenderness, limited range of motion, lymphadenopathy - RESPIRATORY Respiratory: chest non-tender, lungs clear, normal breath sounds, no pleuratic chest pain, no respiratory distress, no accessory muscle use. negative: respiratory distress, decreased breath sounds, accessory muscle use, wheezing - CARDIOVASCULAR Cardiovascular: normal peripheral pulses, regular rate, rhythm. negative: bradycardia, tachycardia, irregularly irregular - GASTROINTESTINAL (ABDOMEN) Abdominal Exam: normal bowel sounds, non tender, soft, no organomegaly, no pulsatile mass - LYMPHATIC Lymphatic: no adenopathy - MUSCULOSKELETAL Back Exam: normal inspection, no CVA tenderness, no vertebral tenderness. negative: CVA tenderness, vertebral tenderness Extremity: other (non cooperative on exam) - SKIN Integumentary: normal color, normal turgor, warm/dry. negative: abrasion(s), diaphoresis, ecchymosis, erythema, laceration(s), swelling, tenderness, warm - NEUROLOGIC Neurologic: other (Non-focal neuro exam; uncooperative to exam) - PSYCHIATRIC Psych/Mental Status: disheveled, depressed affect, other (decrease responsiveness). negative: normal mood/affect, normal thought content, normal thought process, oriented x 3 Progress - PLAN OF CARE/RESULTS Result Diagrams: 10/05/16 20:25 10/05/16 20:25 - REASSESSMENT Reassessment #1 Time Reassessed: 20:36 Status: other (Family at bedside reports that pt was A/Ox3 this am, was given his laculate when he woke up and again at lunch. reports that pt has only had 1 bm today, which is not normal for pt. B/P (90/52), but family reports that pt usually runs a low B/P.) - EKG 1 Time of EKG reading by physician:: 20:13 EKG Read and Signed by:: Vikas Lewis EKG Interpretation (*Must complete 3 of following elements*): Abnormal ( Prolonged QT) Rate: 62 Rhythm: Sinus rhythm with 1st degree AV block - XRAY 1 XRAY: Bilateral XRAY Study: Chest Impression: See EMR Report XRAY Interpretation: See report - CT/MRI 1 CT Study: Head Impression: See EMR Report CT Results: No hemorrhage. No change from the recent exam-Dr. Seth (radiologist ) - CONSULTS/PCP/HOSPITALIST Notification #1 *Consult/PCP/Hospitalist*: Dr. Burns (Hospitalist) Time Discussed: 23:05 Consult Disposition: Admit Departure - Departure Time of Disposition Decision: 23:00 DIAGNOSIS: Hepatic encephalopathy, Cirrhosis of transplanted liver Anemia Qualifiers: Anemia type: unspecified type Qualified Code(s): D64.9 - Anemia, unspecified Disposition: ADMITTED INPATIENT 09 Certified Medical Emergency: Emergent Condition: Stable Referrals and Follow-Ups: Nikolay Zavala MD [Primary Care Provider] - - Critical Care Note This patient required my direct & personal management of CC.: No This chart was documented by the indicated scribe, (Mayito Mullen Scribe) and accurately reflects the services I performed and decisions made by me, Vikas Lewis MD, as attested by the provider's signature.
[2016-10-05] MEDS ORDERED: LACTULOSE ONE (20:52)
[2016-10-05 20:54] LABS: BASO% 0.7 % (0.0-0.8); EOS# 0.11 X1000 (0.0-0.7); EOS% 3.7 % (0.0-10.0); HEMATOCRIT 21.6 % (42.0-52.0); HEMOGLOBIN 7.3 g/dL (14.0-18.0); LYMPH# 0.62 X1000 (1.2-3.4); LYMPH% 21.1 % (20.5-51.1); MCH 34.1 PG (27-31); MCHC 33.8 g/dL (33-37); MCV 100.9 FL (81-99); MONO# 0.16 X1000 (0.11-0.59); MONO% 5.4 % (1.7-9.3); MPV 9.4 FL (7.4-10.4); NEUT% 69.1 % (42.2-75.2); PLT 43 X1000 (130-400); RBC 2.14 XMIL (4.7-6.1)
[2016-10-05 20:58] LABS: INR 1.26; PROTIME 13.4 Seconds (9.2-11.7); PTT 32.5 Seconds (22.0-36.0)
[2016-10-05 21:12] LABS: UR AMPHETAMINES QUAL NONE DETECTED (NONE DETECT); UR BARBITUATES QUAL NONE DETECTED (NONE DETECT); UR BENZODIAZEPIN QUAL NONE DETECTED (NONE DETECT); UR CANNABINOIDS QUAL NONE DETECTED (NONE DETECT); UR COCAINE QUAL NONE DETECTED (NONE DETECT); UR METHADONE QUAL NONE DETECTED (NONE DETECT); UR OPIATES QUAL NONE DETECTED (NONE DETECT); UR OXYCODONE QUAL NONE DETECTED (NONE DETECT); UR PCP QUAL NONE DETECTED (NONE DETECT)
[2016-10-05 21:16] LABS: CALCIUM 8.2 mg/dL (8.8-10.2); POTASSIUM 3.9 mmol/L (3.5-5.1); TOTAL BILIRUBIN 2.37 mg/dL (0.20-1.00); TOTAL PROTEIN 6.3 g/dL (6.3-8.3)
--- NOTE | 2016-10-05 21:44 | Diag Imaging Result Doc PS360 ---
EXAM: HEAD W/O CONTRAST HISTORY: altered mentation TECHNIQUE: COMPARISON: 09/26/2016 FINDINGS: No parenchymal hemorrhage. No epidural or subdural hematoma. No subarachnoid hemorrhage. No mass identified on this noncontrasted exam. No hydrocephalus. No change in the minimal fluid in the right mastoid sinus. IMPRESSION: No hemorrhage. No change from the recent exam. Electronically signed by Tarun Seth 10/05/2016 9:42 PM
[2016-10-05] MEDS ORDERED: NON-FORMULARY MED PR ONE (23:15)
--- NOTE | 2016-10-06 00:59 | HISTORY AND PHYSICAL ---
CHIEF COMPLAINT: Altered mental status. PRIMARY CARE PHYSICIAN: Dr. Zavala. HISTORY OF PRESENTING ILLNESS: This is a 61-year-old male with a history of liver cirrhosis secondary to ELENA, who is status post liver transplant in 2008. Had a recurrence of liver cirrhosis. Was admitted to [facility] about 2 weeks ago for hepatic encephalopathy, and then had been discharged and was readmitted at [facility] for similar symptoms, and was just discharged about 2 days ago. Presented again to the emergency department with mental status changes. He was evaluated in the ER. He was found to have an ammonia level of 315. Due to his presenting symptoms, it was thought that he would need hospitalization for further management. The patient is not able to answer any questions due to his presenting symptoms. Most of the history is obtained from his family members. As per family members, he was doing fine until yesterday, and then all of a sudden he declined. Today, he was markedly altered. However, family denied patient having any fevers, chills, chest pain, shortness of breath, or any weight changes. PAST MEDICAL HISTORY: Liver cirrhosis and ELENA, ESRD, Thursday, Thursday, Thursday , diabetes mellitus type 2, hypertension, hypothyroidism, pancytopenia. PAST SURGICAL HISTORY: Liver transplant. ALLERGIES: Latex. CURRENT MEDICATIONS: As listed in the MAR. SOCIAL HISTORY: No history of smoking, alcohol, or illicit drug use. FAMILY HISTORY: No history of coronary disease. REVIEW OF SYSTEMS: Unable to obtain due to patient's condition. PHYSICAL EXAMINATION: GENERAL: The patient is resting comfortably. VITAL SIGNS: Temperature 97.1 degrees, pulse 64, respirations 12, blood pressure 102/60. HEENT: Atraumatic, normocephalic. NECK: No masses. CHEST: Clear to auscultation. CARDIOVASCULAR: Regular rate and rhythm. ABDOMEN: Abdomen is soft, obese. Positive bowel sounds. EXTREMITIES: +1 edema. NEUROLOGIC: He is arousable to tactile stimuli. GENITOURINARY: No bladder distention. SKIN: Warm. LABORATORIES AND STUDIES: WBC is 2.94, hemoglobin 7.3, hematocrit 21.6, platelets 43,000. PT/INR 13.4 and 1.26. Sodium 138, potassium 3.9, chloride 100, CO2 of 22, BUN is 34, creatinine is 5.0, glucose is 225. Ammonia level is 318. ASSESSMENT: A 61-year-old male with a history of ELENA, status post liver transplant, with recurrence of cirrhosis. Was brought to the emergency department due to mental status changes. He was evaluated in the ER. He was found to have a markedly elevated ammonia level. The patient will need hospitalization for further management. 1. Hepatic encephalopathy. 2. Liver cirrhosis. 3. End-stage renal disease on renal dialysis Thursday, Thursday, Thursday. 4. Diabetes mellitus type 2. 5. Pancytopenia. PLAN: 1. We will admit patient to the ICU. 2. We will continue with lactulose retention enemas. 3. Continue neurological checks. 4. Will consult Nephrology for dialysis. 5. Monitor blood glucose and put patient on sliding scale insulin regimen. 6. We will restart his home medications. 7. Put patient on DVT prophylaxis with SCDs. 8. Continue to follow and reassess. cc: Conrad Burns MD MTDD
[2016-10-06] MEDS ORDERED: QUESTRAN PO PRN (01:23)
[2016-10-06] MEDS ORDERED: ZOFRAN IV PRN (01:23)
[2016-10-06] MEDS: PROTONIX IV SCH (03:58)
[2016-10-06] MEDS: SODIUM CHLORIDE 0.9% INJ SCH (03:58)
[2016-10-06 04:05] LABS: BASO% 0.4 % (0.0-0.8); EOS# 0.11 X1000 (0.0-0.7); EOS% 3.9 % (0.0-10.0); HEMATOCRIT 20.8 % (42.0-52.0); LYMPH# 0.55 X1000 (1.2-3.4); LYMPH% 19.5 % (20.5-51.1); MANUAL DIFF NEEDED? NO; MCH 34.7 PG (27-31); MCHC 33.7 g/dL (33-37); MONO# 0.17 X1000 (0.11-0.59); MPV 9.9 FL (7.4-10.4); NEUT% 70.2 % (42.2-75.2); RBC 2.02 XMIL (4.7-6.1)
[2016-10-06 04:09] LABS: PLT 36 X1000 (130-400)
[2016-10-06 04:50] LABS: CALCIUM 8.7 mg/dL (8.8-10.2); POTASSIUM 3.6 mmol/L (3.5-5.1)
[2016-10-06] MEDS: TUMS PO SCH ×3 (05:59→16:17)
[2016-10-06] MEDS: HUMULIN R SUBQ SCH ×4 (06:00→20:01)
--- NOTE | 2016-10-06 06:27 | Diag Imaging Result Doc PS360 ---
EXAM: CHEST/ABD TUBE PLACEMENT HISTORY: NG tube placement TECHNIQUE: COMPARISON: None. FINDINGS: A nasogastric tube overlies the esophagus and stomach. This is in good position. No free air beneath the diaphragm. Multiple surgical clips in the upper abdomen. The lower lungs are clear. IMPRESSION: Nasogastric tube in good position. Electronically signed by Tarun Seth 10/06/2016 6:25 AM
--- NOTE | 2016-10-06 06:33 | Diag Imaging Result Doc PS360 ---
EXAM: CHEST-PORTABLE HISTORY: AMS TECHNIQUE: Portable COMPARISON: None. FINDINGS: The lungs are well expanded. There is a right jugular line. No pneumothorax. The heart is mildly prominent although this is a portable upright AP study. The vessels are not distended. No pleural effusions identified. IMPRESSION: Mildly prominent heart, but otherwise negative exam. Electronically signed by Tarun Seth 10/06/2016 6:30 AM
[2016-10-06] MEDS: NON-FORMULARY MED PR SCH ×3 (07:11→20:01)
--- NOTE | 2016-10-06 07:12 | EKG Report ---
Test Performed on : 10/05/2016 8:13:20 PM Test Reason : AMS Blood Pressure : / mmHG Vent. Rate : 062 BPM Atrial Rate : 062 BPM P-R Int : 254 ms QRS Dur : 094 ms QT Int : 510 ms P-R-T Axes : 071 058 033 degrees QTc Int : 517 ms Sinus rhythm. with 1st degree AV block. Prolonged QT Abnormal ECG When compared with ECG of 21-SEP-2016 00:44, T wave inversion now evident in Anterior leads Unconfirmed Result
[2016-10-06] MEDS: PROGRAF PO SCH (08:43)
[2016-10-06] MEDS: FOLIC ACID PO SCH (08:43)
[2016-10-06] MEDS: CORGARD PO SCH (08:43)
[2016-10-06] MEDS: FERROUS SULFATE PO SCH ×3 (08:43→17:14)
[2016-10-06] MEDS: LACTULOSE PO SCH ×3 (08:43→17:14)
[2016-10-06] MEDS: XIFAXAN PO SCH ×2 (08:43→20:01)
[2016-10-06] MEDS ORDERED: PRILOSEC PO SCH (09:00)
--- NOTE | 2016-10-06 10:34 | PROGRESS NOTE ---
DATE: 10/06/2016 SUBJECTIVE: The patient remains in the ICU. He is still very obtunded, arousing only to moan with deep external stimuli to the chest. He had been home 2 to 3 days from [facility]. OBJECTIVE: Vital Signs: Afebrile, pulse 72, respirations 16, blood pressure 108/58, O2 saturation on room air 92% to 98%. Cardiovascular: Regular rate and rhythm. Lungs: Rare sonorous wheeze, right upper lung field, otherwise clear to auscultation. Abdomen: Protuberant. Active bowel sounds. Ascites noted. Extremities: Trace to 1+ lower extremity edema. Morbid obesity. IMAGING AND LABORATORY DATA: White count 2.8, hemoglobin 7.0, platelets 36,000, neutrophils 70, lymphocytes 20, monocytes 6. Sodium 142, potassium 3.6, chloride 105, CO2 of 22, BUN 40, creatinine 5.3, glucose 190, calcium 8.7. Ammonia level has risen from 318 to [address] head negative. Chest x-ray negative. ASSESSMENT: 1. Liver failure with hepatic encephalopathy. 2. Liver transplant recipient, and on waiting list for a second liver transplant. 3. End-stage renal disease, on hemodialysis per Dr. Sanchez, with the next pending dialysis to be tomorrow, I understand. 4. Pancytopenia. 5. Immunocompromised, on immunosuppressants due to the previous liver transplant. 6. 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 7. Hypothyroidism. 8. Hypogonadism. 9. Gout. 10. Hypersplenism. PLAN: At this time, he has done well, tolerating a lactulose-retention enema. Will continue lactulose 30 mL per NG tube, which is in adequate position per x-ray. Continue Corgard, Prograf, and home medications. I have spoken with the patient's family in detail, and they are aware of the gravity of the situation. cc: MD Fabricio Rodrigues MD
--- NOTE | 2016-10-06 10:40 | CONSULTATION ---
DATE OF CONSULTATION: 10/06/2016 REASON FOR CONSULTATION: Assistance with management. HISTORY OF PRESENT ILLNESS: Mr. Cortes is a 61-year-old, white male who is well known to us. He has a history of hepatic cirrhosis secondary to steatohepatitis. He underwent liver transplant in the past and has had progressively worsening liver disease. In this context, he has developed end- stage kidney disease as well and has been on dialysis for several months. He has persistent ongoing GI bleeding and has required something like 60 transfusions in the last 1-2 years. He was last seen by us when he was discharged on 09/27/[address] [facility]. The report through the staff is that he was home for 1 day with only modest improvement in his symptoms. He again became obtunded and was transferred back to the hospital yesterday. He is unarousable currently. PAST MEDICAL HISTORY: As above. HOME MEDICATIONS: Include Questran, Zofran, Protonix, insulin, Synthroid, Tums, lactulose, Corgard, folate, Prograf, Xifaxan. ALLERGIES: Latex and iron sucrose. SOCIAL HISTORY: He is and lives with his . He has a very large involved family. FAMILY HISTORY: Otherwise not obtainable. REVIEW OF SYSTEMS: Otherwise not obtainable. PHYSICAL EXAMINATION: Vital Signs: Blood pressure 108/58, heart rate 72, respirations 16, afebrile. Generally: He is an obtunded, middle-aged, chronically ill, obese man, no acute distress. Skin: Warm and dry. HEENT: Conjunctivae are pink. Pupils are equal. Neck: Neck veins are not visible. Trachea is midline. Heart: Regular and distant. Lungs: Have equal breath sounds. Shallow. No crackles. Abdomen: Obese and soft. Bowel sounds are present. Extremities: Have trace edema. No clubbing or cyanosis. IMPRESSION: 1. End-stage kidney disease. He is well dialyzed. We will consider dialysis tomorrow. 2. Altered mental status. Presumably related to his hepatic encephalopathy. Defer to the primary team. 3. Electrolytes/acid base in target. 4. Anemia. Will likely need a transfusion tomorrow. cc: MD Fabricio Cervantes MD
--- NOTE | 2016-10-06 14:11 | Diag Imaging Result Doc PS360 ---
EXAM: CHEST-PORTABLE HISTORY: kwabena; TECHNIQUE: COMPARISON: None. FINDINGS: The lungs are well expanded. The heart is not enlarged. The vessels are not distended. No infiltrates. No pleural effusions identified. The right-sided catheter. No pneumothorax. IMPRESSION: Negative exam Electronically signed by Tarun Seth 10/06/2016 2:09 PM
[2016-10-06 14:34] LABS: BLOOD TYPE ARTERIAL; PCO2(98.6) 20 mmHg (35-45); PO2(98.6) 149 mmHg (60-100); SAMPLE BLOOD
[2016-10-06 14:35] LABS: ALLEN TEST YES; DRAW SITE R RADIAL; MODALITY VENTIMASK; THB 6.8 g/dL (11.5-17.4)
[2016-10-06 14:36] LABS: pH(98.6) 7.68 (7.35-7.45)
[2016-10-06 14:39] LABS: I-STAT BE 4 mmoll (-2-3); I-STAT GLUCOSE 161 mg/dL (70-105); I-STAT HCO3 24.5 mmoll (22.0-26.0); I-STAT HEMATOCRIT 20 % (38-51); I-STAT HEMOGLOBIN 6.8 g/dL (11.5-17.5); I-STAT IONIZED CALCIUM 1.14 mmoll (1.12-1.32); I-STAT K 3.8 mmoll (3.5-4.9); I-STAT PCO2 20.4 mmHg (35.0-45.0); I-STAT SO2 100 % (95-98); I-STAT SODIUM 144 mmoll (138-146); I-STAT TCO2 25 mmoll (23-27); I-STAT pH 7.687 (7.350-7.450)
[2016-10-06] MEDS ORDERED: VANCOMYCIN IV PER PHARMACY MISC SCH (15:00)
[2016-10-06] MEDS ORDERED: VANCOMYCIN 1 GM/NS 1 GM/250 ML IVPB IV ONE (16:00)
[2016-10-06] MEDS: ROCEPHIN 1 GM/NS 1 GM/50 ML IVPB IV SCH (16:23)
[2016-10-06] MEDS ORDERED: NS 500 ML ONE (17:12)
[2016-10-07] MEDS: NON-FORMULARY MED PR SCH (01:42)
[2016-10-07] MEDS: PROTONIX IV SCH (02:03)
[2016-10-07] MEDS: HUMULIN R SUBQ SCH ×4 (06:03→20:18)
[2016-10-07 06:04] LABS: ALBUMIN 1.7 g/dL (3.5-5.0); CALCIUM 8.9 mg/dL (8.8-10.2); POTASSIUM 4.2 mmol/L (3.5-5.1); TOTAL BILIRUBIN 2.7 mg/dL (0.20-1.00); TOTAL PROTEIN 6.3 g/dL (6.3-8.3)
[2016-10-07] MEDS: SYNTHROID PO SCH (06:24)
[2016-10-07] MEDS: TUMS PO SCH ×3 (06:24→16:48)
[2016-10-07 06:26] LABS: BASO% 0.1 % (0.0-0.8); HEMATOCRIT 27.4 % (42.0-52.0); HEMOGLOBIN 9.5 g/dL (14.0-18.0); IMM GRAN# 0.04 X1000 (0.0-0.04); IMM GRAN% 0.3 % (0.0-0.5); LYMPH# 0.64 X1000 (1.2-3.4); LYMPH% 4.9 % (20.5-51.1); MANUAL DIFF NEEDED? YES; MCH 34.1 PG (27-31); MCHC 34.7 g/dL (33-37); MCV 98.2 FL (81-99); MONO# 0.57 X1000 (0.11-0.59); MONO% 4.4 % (1.7-9.3); MPV 10.4 FL (7.4-10.4); NEUT% 90.3 % (42.2-75.2); PLT 40 X1000 (130-400); RBC 2.79 XMIL (4.7-6.1)
[2016-10-07 06:41] LABS: BANDS 18 % (0-1); LYMPHS 2 % (21-51)
[2016-10-07] MEDS ORDERED: VANCOMYCIN 1 GM/NS 1 GM/250 ML IVPB IV SCH (06:45)
[2016-10-07] MEDS ORDERED: NS 2,000 ML ONE (08:36)
--- NOTE | 2016-10-07 08:39 | PROGRESS NOTE ---
DATE: 10/07/2016 TIME SEEN: 0655 SUBJECTIVE: Mr. Cortes is resting in bed. He remains unresponsive today. He does not open his eyes to verbal or tactile stimuli. He is in no acute distress. OBJECTIVE: Vital Signs: His most recent vital signs are temperature 98.2 degrees, blood pressure 90/48, heart rate 80, respirations 16. He is on 2 L nasal cannula. Last recorded saturation 94%. He has had 2400 in. He has had 3975 out, 3.8 L per fecal device. He is not due for dialysis. Labs: Sodium 146, potassium 4.2, chloride is 108, CO2 16, BUN 52, creatinine 6.2, glucose 105, his anion gap is 22, calcium 8.9, albumin 1.7. Ammonia is 39. White count 13, hemoglobin 9.5, hematocrit 27.4, with a platelet count of 40,000. His PTT is 37.8. Physical Examination: General: This is a 61-year-old, white male. He is resting in bed. He is in no acute distress. Skin: Warm and dry. HEENT: Conjunctivae are pink. Pupils are equal, slow to react. Neck: Supple. Trachea midline. No JVD. Cardiovascular: Regular rate and rhythm. Distant heart sounds. Lungs: Clear to auscultation anterior with some scattered rhonchi bilateral. Remains on O2. Equal excursion. Abdomen: Obese, large, soft, nontender. Positive bowel sounds. NG tube remains clamped at this time. Rectal: Patient has a rectal bag that is full of liquid brown stool. Genitourinary: Cat catheter is in place. Minimal void. Dialysis assist. Extremities: There is 2+ lower extremity edema and edema to the upper elbows. No clubbing or cyanosis. Neurological: Patient remains obtunded. He has appearance of chronically- ill with no distress. ASSESSMENT AND PLAN: 1. End-stage renal disease. Patient is to be dialyzed today. We will place him on SLED. He is to be on a 4 K bath and dialyze for 8 hours. We will attempt to pull 3-4 L of ultrafiltration. 2. Electrolytes and acid-base balance. These are at target. 3. Anemia. His hemoglobin is 9.5. Patient had received 2 units of packed red blood cells yesterday. 4. Altered mental status. Patient has known hepatic encephalopathy in the past. We will defer to the primary care team. I would to thank you for allowing us to follow with this patient. Seen, data reviewed, discussed with [place] on 10/07/16. I agree with the above assessment and plan of care. rg Dictated by EDWAR Walter for Mykel Sanchez MD cc: EDWAR Walter MD Jagan Reddy, MD [facility]ITALPatricia
--- NOTE | 2016-10-07 08:42 | PROGRESS NOTE ---
DATE: 10/07/2016 This is a level 3 documentation in ICU 3. Internal history was reviewed. SUBJECTIVE: The patient is completely obtunded. I did discuss with the patient 's . He was transferred out from this hospital to [facility] last Thursday. Apparently, he was there for a while, and they did preop workup for future liver and kidney transplant. They have given lactulose. He was discharged home on Thursday. He was doing very well. He came back on Thursday with altered mental status due to ammonia encephalopathy. He was admitted in ICU. He did not have a dialysis yesterday. Apparently, last night, he had a tongue bite bleeding from the nostril. Cat catheter was placed. Rectal tube, NG tube were placed. Patient was given lactulose. Ammonia level came down. Still, he is obtunded. Initial CT head was negative. PAST MEDICAL HISTORY: Medicines were reviewed. PHYSICAL EXAMINATION: He is afebrile, 18 respirations. Blood pressure is 90/ 57. 2 L of nasal cannula 94%. obtunded. Nonresponse. Nasal oxygen. He had a tongue bite as well as some bleeding from the nostrils.Chest: Clear. Heart: Sounds are regular. Abdomen: Belly is soft with tissue edema. Rectal: Tube with a lot of stool noted. Neurologic: Completely obtunded. LABORATORY DATA: CBC: White cell count 13, hematocrit 27, platelets 40,000. PT 13. INR 1.2. PTT 37. SMA-7: Sodium 146, potassium 4.2, chloride 108. BUN 52, creatinine 6.2, glucose 105. Ammonia level came down from 318, 190, and 39. Albumin 1.7. Urinalysis is clear. Urine toxic screen was negative. CT head initially on 10/05/2016 is negative. Chest x-ray was negative. ASSESSMENT AND PLAN: 1. Altered mental status. Complete obtundation despite improvement of ammonia levels. Repeat CT head. Rule out any bleed. 2. End-stage kidney disease, on dialysis.waiting for dialysis today. 3. Hypothyroidism, on Synthroid. 4. Type 2 diabetes. Hold on the glipizide. Follow up on sliding scale. 5. High risk for subacute bacterial endocarditis, on ceftriaxone and vancomycin post dialysis. Prognosis is poor. I discussed with the patient's about advanced directives. No decision was made. We will also discuss with Dr. Sanchez. cc: Fabricio Zavala MD [facility] SYSTEMPatricia
--- NOTE | 2016-10-07 08:44 | Diag Imaging Result Doc PS360 ---
EXAM: HEAD W/O CONTRAST HISTORY: AMS TECHNIQUE: Dose reduction protocol COMPARISON: 10/05/2016 FINDINGS: No parenchymal hemorrhage. No epidural or subdural hematoma. No subarachnoid hemorrhage. No mass identified on this noncontrasted exam. No hydrocephalus. No sinus opacification. IMPRESSION: No hemorrhage. Negative brain CT without contrast. Electronically signed by Tarun Seth 10/07/2016 8:42 AM
[2016-10-07] MEDS: XIFAXAN PO SCH ×2 (09:50→20:18)
[2016-10-07] MEDS: LACTULOSE PO SCH ×3 (09:50→16:48)
[2016-10-07] MEDS: FOLIC ACID PO SCH (09:50)
[2016-10-07] MEDS: CORGARD PO SCH (09:50)
[2016-10-07] MEDS: FERROUS SULFATE PO SCH ×3 (09:50→16:48)
[2016-10-07] MEDS ORDERED: NS 1,000 ML ONE (11:53)
[2016-10-07] MEDS ORDERED: ALBUMIN 25% IV ONE (11:55)
[2016-10-07] MEDS ORDERED: NEO-SYNEPHRINE 50 MG in NS 250 ML IV SCH (12:30)
[2016-10-07] MEDS: ROCEPHIN 1 GM/NS 1 GM/50 ML IVPB IV SCH (15:25)
[2016-10-08] MEDS: PROTONIX IV SCH (02:16)
[2016-10-08] MEDS: SODIUM CHLORIDE 0.9% INJ SCH (02:17)
[2016-10-08 05:32] LABS: BASO% 0.1 % (0.0-0.8); EOS# 0.02 X1000 (0.0-0.7); EOS% 0.3 % (0.0-10.0); HEMATOCRIT 22.3 % (42.0-52.0); HEMOGLOBIN 7.6 g/dL (14.0-18.0); LYMPH# 0.85 X1000 (1.2-3.4); LYMPH% 11.1 % (20.5-51.1); MANUAL DIFF NEEDED? YES; MCH 33.8 PG (27-31); MCHC 34.1 g/dL (33-37); MCV 99.1 FL (81-99); MONO# 0.37 X1000 (0.11-0.59); MONO% 4.8 % (1.7-9.3); MPV 9.2 FL (7.4-10.4); NEUT% 83.7 % (42.2-75.2); PLT 41 X1000 (130-400); RBC 2.25 XMIL (4.7-6.1)
[2016-10-08] MEDS: SYNTHROID PO SCH (06:23)
[2016-10-08] MEDS: HUMULIN R SUBQ SCH ×4 (06:23→21:22)
[2016-10-08] MEDS: TUMS PO SCH ×3 (06:24→17:18)
[2016-10-08 07:18] LABS: BANDS 4 % (0-1); LYMPHS 11 % (21-51); NRBC 3 % (0-0)
[2016-10-08] MEDS ORDERED: NS 250 ML ONE (08:06)
[2016-10-08] MEDS: FERROUS SULFATE PO SCH ×3 (08:17→17:18)
[2016-10-08] MEDS: CORGARD PO SCH (08:17)
[2016-10-08] MEDS: FOLIC ACID PO SCH (08:17)
[2016-10-08] MEDS: PROGRAF PO SCH (08:17)
[2016-10-08] MEDS: LACTULOSE PO SCH ×3 (08:17→17:18)
[2016-10-08] MEDS: XIFAXAN PO SCH ×2 (08:17→21:40)
--- NOTE | 2016-10-08 08:28 | PROGRESS NOTE ---
DATE: 10/08/2016 SUBJECTIVE: Interval history was reviewed. I spent most of the time on the telephone discussing with Transfer Center at [facility] as well as the family. This is an unstable patient. Apparently, patient has a low blood pressure, obtunded. He was started on Hardeep-Synephrine. He had a hemodialysis yesterday. He was unresponsive. Discussed the advanced directives. Patient is full code. The family wants to be transferred out to [facility]. I did talk to the [facility] Transfer Center who reported they do not have an ICU bed data under diversion. In the meantime, the patient had a CT head despite normal ammonia levels and CT head did not show any acute bleed. The patient still has NG tube, rectal tube. He is awake but not able to follow verbal comments. REVIEW OF SYSTEMS: Unable to obtain.Vital signs: She is afebrile. Pulse is 77. Blood pressure 112/68. 2 L of nasal cannula on oxygen. HEENT: Awake, icteric, pale. An NG-tube was placed. Bleeding stopped. Chest: Clear. Heart: Sounds are regular. Abdomen: Belly is soft, obese. Extremities: 1+ pedal edema with chronic venostasis changes. Slight asterixis noted. INVESTIGATIONS: CBC: White cell count 7.6, hematocrit 22, platelets 41,000, ammonia level was pending. SMA 7. CT head on 10/07/2016 negative brain. ASSESSMENT AND PLAN: 1. Acute metabolic encephalopathy. Not improving despite normal ammonia levels even after dialysis and normal CT head. Continue lactulose and Xifaxan. 2. Gastrointestinal bleeding ongoing, hemodynamics support with transfusion of 1 unit of blood, end-stage kidney disease on dialysis again today. 3. Prophylactic antibiotics with vancomycin and ceftriaxone. 4. Hold the nadolol when the blood pressure is low. 5. Hemodynamically unstable. He was on Hardeep-Synephrine. Slowly weaned off and prognosis is dismal. Discussed again the patient's wants to be transferred out of the ICU to [facility]. I told the nurses to communicate with the [facility] transfer when a bed is available and he will be transferred out. In the meantime his condition is guarded. Discussed with Dr. Sanchez as well. LEVEL OF DOCUMENTATION: 35 minutes. cc: Fabricio Zavala MD
[2016-10-08] MEDS ORDERED: NS 2,000 ML ONE (08:43)
--- NOTE | 2016-10-08 09:08 | PROGRESS NOTE ---
DATE: 10/08/2016 SUBJECTIVE: Mr. Cortes does open his eyes randomly. There is no focusing. He does not respond to any tactile stimuli. OBJECTIVE: Most recent vital signs: Temperature 97.9 degrees, blood pressure 123/62, heart rate 62, respirations are 14. He is on 2 L nasal cannula. Last recorded saturation 100%. He has an NG tube that is currently clamped. He has 1280 in, 1450 out, with 1.3 L on dialysis. LABORATORY DATA: Sodium 146, potassium 4.2, chloride 108, CO2 of 16, BUN 52, creatinine 6.2, glucose 105, anion gap 22, calcium 8.9, albumin 1.7. White count 7.67, hemoglobin 7.6, hematocrit 22.3, platelet count 41,000. Blood cultures are negative. His ammonia level yesterday was 39, not resulted this a.m. PHYSICAL EXAMINATION: General: This is a 61-year-old white male. He is resting in bed. He is in no acute distress. Skin: Warm and dry. HEENT: Normocephalic, atraumatic. Conjunctiva pale. He has CRESCENCIO. Mucous membranes moist. Neck: Supple. No JVD. Cardiovascular: He is regular rate and rhythm. Distant heart sounds. No murmur or gallop appreciated. Lungs : Clear to auscultation anterior. Scattered rhonchi posterior. Head of the bed elevated. Remains on O2. Equal excursion. Abdomen: Obese, soft, nontender. Positive bowel sounds, with NG tube clamped at this time. Rectal tube does remain in place with liquid brown stool. Genitourinary: Cat catheter is in place. Minimal void. Dialysis assist. Extremities: There is 2 + edema. No clubbing or cyanosis to the lower extremities. Positive edema to the upper elbows. Neurological: Again, as mentioned above. ASSESSMENT AND PLAN: 1. End-stage renal disease. The patient was unable to tolerate a full SLED 8- hour treatment yesterday. He did receive 4 hours with approximately 1.3 liters removed. We will plan for SLED today. We will place him on 8 hours, 4-potassium bath. We will attempt to pull 1 liter of ultrafiltration. He now remains on a Hardeep-Synephrine drip for blood pressure support. 2. Electrolytes and acid-base balance. This remains stable with correction on dialysis for his acidosis. 3. Anemia. This remains low. He is ordered a unit of packed red blood cells today. 4. Altered mental status. Dr. Zavala is aware. He is working with [facility] in regards to possible transfer. I would to thank you for allowing us to follow with this patient. Seen, data reviewed, discussed with [place] on 10/08/16. I agree with the above assessment and plan of care. rg Dictated by EDWAR Walter for Mykel Sanchez MD cc: EDWAR Walter MD Jagan Reddy, MD [facility]ITALPatricia
[2016-10-08] MEDS: ROCEPHIN 1 GM/NS 1 GM/50 ML IVPB IV SCH (17:18)
[2016-10-09 06:13] LABS: EOS# 0.09 X1000 (0.0-0.7); EOS% 2.1 % (0.0-10.0); LYMPH% 16.3 % (20.5-51.1); MANUAL DIFF NEEDED? NO; MONO# 0.23 X1000 (0.11-0.59); MONO% 5.3 % (1.7-9.3); MPV 9.3 FL (7.4-10.4); NEUT% 76.3 % (42.2-75.2)
[2016-10-09 06:14] LABS: HEMATOCRIT 20.4 % (42.0-52.0); HEMOGLOBIN 6.7 g/dL (14.0-18.0); MCH 32.7 PG (27-31); MCHC 32.8 g/dL (33-37); MCV 99.5 FL (81-99); RBC 2.05 XMIL (4.7-6.1)
[2016-10-09 06:23] LABS: PLT 35 X1000 (130-400)
[2016-10-09 06:25] LABS: CALCIUM 7.8 mg/dL (8.8-10.2); POTASSIUM 3.8 mmol/L (3.5-5.1)
[2016-10-09] MEDS: SYNTHROID PO SCH (06:41)
[2016-10-09] MEDS: TUMS PO SCH ×3 (06:42→17:20)
[2016-10-09] MEDS: HUMULIN R SUBQ SCH ×4 (06:42→21:37)
[2016-10-09] MEDS ORDERED: SYNTHROID IV ONE (07:39)
[2016-10-09] MEDS ORDERED: SODIUM CHLORIDE 0.9% INJ ONE (07:39)
--- NOTE | 2016-10-09 08:48 | PROGRESS NOTE ---
DATE: 10/09/2016 SUBJECTIVE: The patient is lucid, awake, able to recognize the family members, wants to drink. He had dialysis yesterday. We tried to transfer to [facility] yesterday, still under diversion, and there were no beds in ICU. The patient still has NG tube, Cat catheter and rectal tube. REVIEW OF SYSTEMS: None reported. PHYSICAL EXAMINATION: Vital Signs: Afebrile. Vitals are stable. Nasal cannula 4 L. Weight 236 pounds. Intake/output were -negative 1.35 L. HEENT Exam: Icteric, slightly pale. No bleeding from the nose and the tongue. Chest: Clear. Heart: Sounds are regular. Abdomen: Belly is soft, nontender. Good bowel sounds. Extremities: Tissue edema noted. Chronic venous stasis changes noted in both legs. INVESTIGATIONS: CBC: White cell count 4.3, hematocrit 20, platelets 35, and ammonia levels 34. SMA 7: Sodium 144, potassium 3.8, BUN 31 creatinine 2.4, calcium 7.8. TSH is 8.11. ASSESSMENT AND PLAN: 1. Altered mental status due to ammonia. Encephalopathy is improving. Continue lactulose and Xifaxan. 2. Hypothyroidism. Thyroid stimulating hormone is high. We will give Synthroid intravenous 1 dose. 3. Folic acid deficiency. Folic acid intravenous. 4. Anemia due to gastrointestinal bleeding loss. Keep the hematocrit around 25. Transfuse 2 units of packed red blood cells. 5. End-stage kidney disease on dialysis. 6. Thrombocytopenia due to hypersplenism. Transfuse a unit of platelets. 7. Prophylactic antibiotics with ceftriaxone and vancomycin after dialysis. 8. Advance the diet to clear liquids, and we will also attempt to transfer to [facility] when the bed is available. Discussed with the family. LEVEL OF DOCUMENTATION: 35 minutes. cc: Fabricio Zavala MD
[2016-10-09] MEDS ORDERED: FOLIC ACID 5 MG in NS 50 ML IV SCH (09:00)
--- NOTE | 2016-10-09 09:16 | PROGRESS NOTE ---
DATE: 10/09/2016 SUBJECTIVE: Mr. Cortes is resting quietly in bed. He does make eye contact today. He is alert to person and to place. Unfamiliar to most recent events. OBJECTIVE: His most recent vital signs, his temperature is 98.2 degrees, blood pressure 98/51, heart rate 66, respirations 17. He is on 4 L nasal cannula. Last recorded saturation 100%. He has had 320 in. He has had 1675 out with 1 L on dialysis. LABORATORY DATA: Sodium 144, potassium 3.8, chloride 109, CO2 27, BUN 31, creatinine 2.4, glucose 91, anion gap 8, calcium 7.8. His ammonia level of 34. White count 4.3, hemoglobin 6.7, hematocrit 20.4 with a platelet count of 35,000. PHYSICAL EXAMINATION: General: This is a 61-year-old, white male. He is currently resting in bed. He appears chronically ill. He is in no acute distress. Skin: Warm and dry. HEENT: Normocephalic, atraumatic. Conjunctiva is pale. He has CRESCENCIO. Mucous membranes are dry. Neck: Supple. Trachea midline. No JVD evident. Cardiovascular: He has a regular rate and rhythm. He is without murmur or gallop. Lungs: Clear to auscultation anteriorly. Equal excursion. He has edema to his right upper arm elbow greater than left. Otherwise 1+ edema to the lower extremities. No clubbing or cyanosis. Abdomen: Round, soft, nontender. Positive bowel sounds. NG tube remains clamped. Integumentary: No evidence of rashes or lesions. ASSESSMENT AND PLAN: 1. End-stage renal disease. Patient dialyzed for the last 2 days. We will plan to hold dialysis today and plan for dialysis in the morning. 2. Electrolytes and acid-base balance. These have been stable with correction on dialysis. 3. Anemia. Patient received 1 unit of packed red blood cells yesterday. His hemoglobin continues to drop in spite of that. He is down to 6.7 today. We will defer to the primary care team. 4. Altered mental status. This may be related to his chronic liver disease. This is improved. I would like to thank you for allowing us to follow with this patient. Seen, data reviewed, discussed with [place] on 10/09/16. I agree with the above assessment and plan of care. rg Dictated by EDWAR Walter for Mykel Sanchez MD cc: EDWAR Walter MD Jagan Reddy, MD [facility]PITALPatricia
[2016-10-09] MEDS ORDERED: NS 250 ML ONE (09:24)
[2016-10-09] MEDS: CORGARD PO SCH (10:02)
[2016-10-09] MEDS: FOLIC ACID PO SCH (10:02)
[2016-10-09] MEDS: LACTULOSE PO SCH ×3 (10:02→17:20)
[2016-10-09] MEDS: XIFAXAN PO SCH ×2 (10:02→21:37)
[2016-10-09] MEDS: FERROUS SULFATE PO SCH ×3 (10:02→17:20)
[2016-10-09] MEDS: PROTONIX IV SCH (10:02)
[2016-10-09] MEDS: SODIUM CHLORIDE 0.9% INJ SCH (10:02)
[2016-10-09] MEDS ORDERED: CALMOSEPTINE OINTMENT TOP PRN (14:19)
[2016-10-09] MEDS ORDERED: BLISTEX MEDICATED BERRY LIP BALM TOP PRN (16:28)
[2016-10-09] MEDS: ROCEPHIN 1 GM/NS 1 GM/50 ML IVPB IV SCH (17:19)
[2016-10-10 06:02] LABS: MANUAL DIFF NEEDED? NO
[2016-10-10 06:09] LABS: BASO% 0.3 % (0.0-0.8); EOS% 6.1 % (0.0-10.0); HEMATOCRIT 23.6 % (42.0-52.0); HEMOGLOBIN 7.9 g/dL (14.0-18.0); LYMPH% 18.4 % (20.5-51.1); MCH 32.4 PG (27-31); MCHC 33.5 g/dL (33-37); MCV 96.7 FL (81-99); MONO% 6.1 % (1.7-9.3); MPV 8.9 FL (7.4-10.4); NEUT% 69.1 % (42.2-75.2); RBC 2.44 XMIL (4.7-6.1)
[2016-10-10 06:11] LABS: PLT 32 X1000 (130-400)
[2016-10-10] MEDS: SYNTHROID PO SCH (06:13)
[2016-10-10] MEDS: HUMULIN R SUBQ SCH ×4 (06:13→20:20)
[2016-10-10] MEDS: TUMS PO SCH ×3 (06:13→17:26)
[2016-10-10 06:44] LABS: CALCIUM 7.6 mg/dL (8.8-10.2); POTASSIUM 3.5 mmol/L (3.5-5.1)
[2016-10-10] MEDS ORDERED: TIGHT: 0.2 ML/HR MISC PRN (06:57)
[2016-10-10] MEDS ORDERED: HEPARIN IV PRN (06:57)
[2016-10-10] MEDS ORDERED: NS 2,000 ML MISC PRN (06:57)
[2016-10-10] MEDS: LACTULOSE PO SCH ×4 (07:57→17:27)
[2016-10-10] MEDS: FOLIC ACID PO SCH (08:00)
[2016-10-10] MEDS: XIFAXAN PO SCH ×2 (08:00→20:42)
[2016-10-10] MEDS: PROGRAF PO SCH (08:00)
[2016-10-10] MEDS: FERROUS SULFATE PO SCH ×3 (08:01→17:26)
[2016-10-10] MEDS: CORGARD PO SCH (08:01)
--- NOTE | 2016-10-10 08:51 | PROGRESS NOTE ---
DATE: 10/10/2016 SUBJECTIVE: The interval history was reviewed. Discontinued Cat catheter. Discontinued rectal tube. The patient is more alert. He did receive 2 units of packed RBCs and also 1 unit of platelets. He also received 1 dose of IV Synthroid and folic acid. He is still waiting to be transferred out to [place]. The patient is more alert and able to recognize the family members, as well as me. REVIEW OF SYSTEMS: None reported. PHYSICAL EXAMINATION: Vital Signs: On examination, his vital signs are stable, 240 pounds. HEENT: Pale, slightly icteric. Chest: Clear. Heart: Sounds are regular. Skin: A dialysis catheter on the right side present. Peripheral line on the left hand. NG tube was still present. The rest of the exam is benign. LABORATORY DATA: CBC: White cell count 3.2, hematocrit 23, platelets 32,000. SMA-7: Creatinine is 3.1. ASSESSMENT AND PLAN: 1. Acute metabolic encephalopathy, improving. Continue lactulose and Xifaxan. 2. Chronic anemia due to gastrointestinal bleeding. Apparently, the patient was placed on Sandostatin 3 times a day. We will find out the dose from the family, and we will restart today. 3. End-stage kidney disease, going for dialysis. 4. Discontinue nasogastric tube. Advanced to full liquid diet. Keep him out of the bed, and if he is stable, he will be discharged, and he can follow up as an outpatient at [facility]. We will discuss with the family. At this time, his condition is guarded, and discussed with the patient's family. LEVEL OF DOCUMENTATION: The level of documentation is 25 minutes. cc: Fabricio Zavala MD
[2016-10-10] MEDS ORDERED: NS 2,000 ML ONE (08:54)
[2016-10-10] MEDS ORDERED: HEPARIN ONE (08:54)
[2016-10-10] MEDS ORDERED: NS 1,000 ML ONE (10:07)
[2016-10-10] MEDS ORDERED: ALBUMIN 25% IV ONE (10:31)
[2016-10-10] MEDS ORDERED: ALBUMIN 25% ONE (10:33)
--- NOTE | 2016-10-10 11:04 | PROGRESS NOTE ---
DATE: 10/10/2016 TIME SEEN: 0700. SUBJECTIVE: Mr. Cortes is resting quietly in bed. He is awake. He is alert. He responds appropriately, though he is forgetful to most recent events. Denies chest pain or increased work of breathing. OBJECTIVE: Vital signs: His most recent vital signs, temperature 97.9 degrees , last blood pressure 96/56, heart rate 58, respirations 14. He is on 2 L nasal cannula. Last recorded saturation is 100%. He has had 2800 in. He has had 264 out, mostly per fecal device and minimal per Cat. He is in need of dialysis. Labs: This a.m., sodium 137, potassium 3.5, chloride 103, CO2 25, BUN 41, creatinine 3.1, glucose 85. His anion gap is 9, calcium is 7.6. White count 3.26, hemoglobin 7.9, hematocrit 23.6, with a platelet count of 32,000. PHYSICAL EXAMINATION: General: This is a 61-year-old white male. He is currently resting in bed. He is in no acute distress. Skin: Warm and dry. HEENT: Normocephalic, atraumatic. Conjunctivae pale. He has CRESCENCIO. Mucous membranes moist. Neck: Supple. Trachea midline. No JVD. Cardiovascular: He has a regular rate and rhythm. He has a positive systolic murmur. Lungs: Clear to auscultation anterior with poor inspiratory effort. Abdomen: Large, round, soft, nontender. Positive bowel sounds. Genitourinary: Not inspected with dialysis assist. Extremities: He continues with 1+ lower extremity edema that has improved with just trace to the left upper elbows. Neurological: Alert and oriented x2. ASSESSMENT AND PLAN: 1. End-stage renal disease. Patient is due for his routine dialysis treatment today. We will place him on a 3 K bath. He is to dialyze for 3.5 hours. We will attempt to pull 2-3 L of ultrafiltration as tolerated. 2. Electrolytes and acid-base balance. These are within normal range. 3. Anemia. This remains low. He received a unit of packed red blood cells this week. We will defer to the primary care team. At any point that he is on dialysis we will be very happy to assist with transfusion. 4. Altered mental status. This has improved. I would like to thank you for allowing us to follow with this patient. Seen, data reviewed, discussed with [place] on 10/09/16. I agree with the above assessment and plan of care. rg Dictated by EDWAR Walter for Mykel Sanchez MD cc: EDWAR Walter MD Jagan Reddy, MD [facility]ENTER[facility]ricia
[2016-10-10] MEDS: PROTONIX IV SCH (12:40)
[2016-10-10] MEDS: ROCEPHIN 1 GM/NS 1 GM/50 ML IVPB IV SCH (17:26)
[2016-10-11] MEDS: TUMS PO SCH ×3 (06:01→16:36)
[2016-10-11] MEDS: HUMULIN R SUBQ SCH ×4 (06:02→20:58)
[2016-10-11] MEDS: SYNTHROID PO SCH (06:02)
[2016-10-11 07:04] LABS: BASO% 0.4 % (0.0-0.8); EOS# 0.17 X1000 (0.0-0.7); EOS% 6.9 % (0.0-10.0); HEMOGLOBIN 7.6 g/dL (14.0-18.0); LYMPH# 0.49 X1000 (1.2-3.4); LYMPH% 19.8 % (20.5-51.1); MANUAL DIFF NEEDED? YES; MCH 32.2 PG (27-31); MCV 97.5 FL (81-99); MONO# 0.22 X1000 (0.11-0.59); MONO% 8.9 % (1.7-9.3); MPV 9.7 FL (7.4-10.4); RBC 2.36 XMIL (4.7-6.1)
[2016-10-11 07:06] LABS: PLT 36 X1000 (130-400)
[2016-10-11 07:21] LABS: BANDS 4 % (0-1); LYMPHS 8 % (21-51); MONO 4 % (1-9)
[2016-10-11 07:51] LABS: CALCIUM 7.3 mg/dL (8.8-10.2); POTASSIUM 3.5 mmol/L (3.5-5.1)
[2016-10-11] MEDS: LACTULOSE PO SCH ×3 (08:30→16:36)
[2016-10-11] MEDS: FOLIC ACID PO SCH (08:30)
[2016-10-11] MEDS: SODIUM CHLORIDE 0.9% INJ SCH (08:30)
[2016-10-11] MEDS: FERROUS SULFATE PO SCH ×3 (08:30→16:36)
[2016-10-11] MEDS: PROTONIX IV SCH (08:30)
[2016-10-11] MEDS: CORGARD PO SCH (08:30)
[2016-10-11] MEDS: XIFAXAN PO SCH ×2 (08:31→20:58)
--- NOTE | 2016-10-11 10:57 | PROGRESS NOTE ---
DATE: 10/11/2016 TIME SEEN: 0800. SUBJECTIVE: Mr. Cortes is resting quietly in bed. His is at his bedside. He has just started to eat some breakfast. He denies any chest pain or increased work of breathing. OBJECTIVE: Vital Signs: Most recent vital signs: Temperature 96.6 degrees, blood pressure 90/52, heart rate 78, respirations 16. He is on 3L nasal cannula. Last recorded saturation was 99%. He has had 920 in. He has had 3 L off with dialysis. General: This is a 61-year-old white male. He is resting in bed. He is in no acute distress. Skin: Warm and dry. HEENT: Normocephalic, atraumatic. Conjunctivae pale. He has CRESCENCIO. Mucous membranes moist. Neck: Supple. Trachea midline. No JVD. Cardiovascular: Regular rate and rhythm. He has a soft systolic murmur. No gallop appreciated. Lungs: Clear to auscultation anteriorly. Equal excursion on O2. Abdomen: Large, round, soft, nontender. Positive bowel sounds. Genitourinary: Not inspected with dialysis assist. Extremities: Continues with 1+ lower extremity edema and trace to the upper elbows bilateral. Neurologic: Alert and oriented x2. LABORATORY DATA: This a.m., sodium 137, potassium 3.5, chloride 101, CO2 of 27, BUN 23, creatinine 2.1, glucose 86. His anion gap is 9, calcium 7.3. White count 2.48, hemoglobin 7.6, hematocrit 23, platelet count 36,000. His last ammonia level was down to 34 on 10/09/2016. This has not been repeated. ASSESSMENT AND PLAN: 1. End-stage renal disease. Patient tolerated his dialysis treatment yesterday. No indications for dialysis intervention today. We will plan for dialysis on Thursday, per his routine prescription, or he is requested to attend his outpatient prescription treatment on Thursday if discharged. 2. Electrolytes and acid-base balance. These are stable. 3. Anemia. This remains low. He has received a unit of packed red blood cells this week. No indications for intervention today. 4. Altered mental status. This has resolved. I would to thank you for allowing us to follow with this patient. Dictated by EDWAR Walter for Mykel Sanchez MD cc: EDWAR Walter MD Jagan Reddy, MD
--- NOTE | 2016-10-11 12:46 | PROGRESS NOTE ---
DATE: 10/11/2016 SUBJECTIVE: The patient is more awake, alert, bright. Tolerating full-liquid pretty well. Hemodynamics were stable. No complaints. He wants to go home. He had hemodialysis yesterday. During this admission, the patient did receive 5 units of packed RBCs and 1 unit of platelets. PHYSICAL EXAMINATION: Vital Signs: Stable. In room air, 93%. HEENT: Slightly icteric, pale. Neck: Supple. No lymphadenopathy. Chest: Clear to auscultation. Heart: Sounds are regular. Abdomen: Belly is soft, nontender, with tissue edema. Chest: Port seen on the right side of the chest. Neurologic: No obvious neurological deficits. No asterixis noted. INVESTIGATIONS: CBC: White cell count 2.4, hematocrit 23, platelets 36,000. SMA-7: Sodium 137, potassium 3.5, chloride 101, BUN 23, creatinine 2.1 glucose 129, ammonia level 45. ASSESSMENT AND PLAN: 1. Altered mental status due to metabolic encephalopathy, improved. Ammonia levels were normal. Continue on lactulose 30 mg p.o. t.i.d. and cefoxitin 550 p.o. b.i.d. 2. Portal hypertension with variceal bleeding. Continue on Sandostatin 50 mcg t.i.d. 3. Hypothyroidism, on Synthroid 125 mcg daily. 4. End-stage kidney disease, on dialysis. He is due for dialysis on Thursday. 5. Prophylactic antibiotics for spontaneous bacterial peritonitis. Ceftriaxone 1 g daily and vancomycin after dialysis. 6. Portal hypertension, on nadolol. 7. Hypothyroidism, on Synthroid. Discussed the plan of care with family. Will transfer out of the ICU. There is no bed at [facility]. He has an appointment on Thursday. He will be discharged home after dialysis on Thursday and the family will take him to the [facility] Transplant Clinic on Thursday. LEVEL OF DOCUMENTATION: Twenty-five minutes. cc: Fabricio Zavala MD
[2016-10-11] MEDS: SANDOSTATIN SUBQ SCH ×2 (13:00→16:37)
[2016-10-11] MEDS: ROCEPHIN 1 GM/NS 1 GM/50 ML IVPB IV SCH (16:36)
[2016-10-12] MEDS: TUMS PO SCH ×3 (06:13→16:27)
[2016-10-12] MEDS: SYNTHROID PO SCH (06:13)
[2016-10-12] MEDS: HUMULIN R SUBQ SCH ×4 (06:14→20:17)
--- NOTE | 2016-10-12 07:44 | PROGRESS NOTE ---
DATE: 10/12/2016 SUBJECTIVE: The patient was transferred out of ICU into the [facility]. He is more alert. His is at bedside. He was started on Sandostatin 50 mcg subcu t.i.d. He is more lucid. He is willing to get up and walk. Mental status is improved. No confusion. REVIEW OF SYSTEMS: None reported. PHYSICAL EXAMINATION: Afebrile. Vitals are stable. Weight 234 pounds.HEENT: Slightly jaundiced. Chest: Clear. Heart: Sounds are regular. Belly is soft and nontender. Good bowel sounds. Neurological: No deficits. No asterixis. LABORATORY DATA: Labs are pending. ASSESSMENT AND PLAN: 1. Altered mental status improved. Continue on Sandostatin. 2. Waiting for dialysis tomorrow. 3. Plan of care: Out of the bed with ambulation with some assistance and will be discharged home off of her dialysis tomorrow. He will go straight to [facility] on Thursday at Transplant Clinic. LEVEL OF DOCUMENTATION: 15 minutes. cc: Fabricio Zavala MD
[2016-10-12] MEDS: FOLIC ACID PO SCH (09:07)
[2016-10-12] MEDS: SODIUM CHLORIDE 0.9% INJ SCH (09:07)
[2016-10-12] MEDS: PROTONIX IV SCH (09:07)
[2016-10-12] MEDS: XIFAXAN PO SCH ×2 (09:07→20:16)
[2016-10-12] MEDS: CORGARD PO SCH (09:07)
[2016-10-12] MEDS: FERROUS SULFATE PO SCH ×3 (09:07→16:27)
[2016-10-12] MEDS: LACTULOSE PO SCH ×3 (09:07→20:17)
[2016-10-12] MEDS: SANDOSTATIN SUBQ SCH ×3 (11:11→20:17)
--- NOTE | 2016-10-12 11:20 | PROGRESS NOTE ---
DATE: 10/12/2016 SUBJECTIVE: Patient is sitting up in a chair. He has been transferred from the ICU up to [facility]. He is eating well. He is ambulatory with minimal assistance. His is bringing his walker from home. OBJECTIVE: Vital Signs: Temperature 98.5 degrees, pulse 59, respiratory rate 12, blood pressure 104/47. Intake 1.2 L. Output 50 mL. Physical Examination: General: This is a middle-aged gentleman resting in a chair. He is awake and alert. He is in no acute distress. HEENT: Normocephalic and atraumatic. Conjunctivae pale. Oral mucosa moist. Neck: Supple. No JVD. Cardiovascular: Regular rate and rhythm with a systolic murmur. Pulmonary: He has equal excursion. He is clear bilaterally. Abdomen: Soft, with positive bowel sounds. : Not inspected. He has minimal void with hemodialysis assist. Extremities: He has 1+ pretibial edema. He is moving all extremities and is ambulatory. Integumentary: Skin is warm and dry. He has some vascular changes noted to bilateral lower extremities. Lab Data: I have no labs this morning. ASSESSMENT AND PLAN: 1. End-stage renal disease management. Patient underwent dialysis yesterday without difficulty. I will plan to dialyze him on Thursday as per routine prescription. 2. Electrolytes, acid-base balance, anemia. These have been stable. He has received some packed red blood cells this week. We will check labs in the morning on dialysis. 3. Altered mental status, resolved. 4. Disposition. We understand the plan tentatively is to dialyze the patient in the morning and then allow him to be discharged home so that he may present to Transplant Clinic at [facility] as we have been unsuccessful in transferring him down there during this hospitalization. Dictated by EDWAR Mir for Mykel Sanchez MD cc: MD Fabricio Cervantes MD
[2016-10-12] MEDS: ROCEPHIN 1 GM/NS 1 GM/50 ML IVPB IV SCH (16:27)
[2016-10-13] MEDS: TUMS PO SCH ×2 (06:45→13:32)
[2016-10-13] MEDS: SYNTHROID PO SCH (06:45)
[2016-10-13] MEDS ORDERED: NS 2,000 ML MISC PRN (07:37)
[2016-10-13 07:59] VITALS: BP 94/52
[2016-10-13] MEDS: HUMULIN R SUBQ SCH ×2 (08:17→13:31)
[2016-10-13] MEDS ORDERED: NS 2,000 ML ONE (09:07)
[2016-10-13] MEDS ORDERED: HEPARIN ONE (09:08)
[2016-10-13] MEDS ORDERED: ALBUMIN 25% IV ONE (09:50)
[2016-10-13] MEDS ORDERED: ALBUMIN 25% ONE (09:51)
--- NOTE | 2016-10-13 10:53 | PROGRESS NOTE ---
DATE: 10/13/2016 TIME SEEN: 729 SUBJECTIVE: Mr. Cortes is resting quietly in bed. He has no complaints. He denies chest pain or increased work of breathing. OBJECTIVE: Vital Signs: His most recent vital signs are temperature 97.7, blood pressure 95/57, heart rate 66, respirations are 18. He is on room air. Last recorded saturation 95%. He has had 1090 in and 500 out per void. Laboratory Data: His labs this a.m., last hemoglobin was 7.6 on the . The rest of his labs are currently pending with a previous potassium of 3.5. Physical Examination: General: This is a 61-year-old, white male. He appears chronically ill. He is in no acute distress. Skin: Warm and dry. HEENT: Normocephalic, atraumatic. Conjunctivae pale. He has CRESCENCIO. Mucous membranes are dry. Neck: Supple. Trachea midline. No JVD. Cardiovascular: Regular rate and rhythm. Soft systolic murmur. No gallop. Lungs: Clear to auscultation anteriorly. Equal excursion on O2. Abdomen: Large, round, soft, nontender. Positive bowel sounds. Genitourinary: Not inspected with minimal void, dialysis assist. Extremities: Continues with 1+ lower extremity edema with chronic venous stasis bilateral. Neurological: Alert and oriented x2. ASSESSMENT AND PLAN: 1. End-stage renal disease. Patient is due for his routine dialysis treatment today. We will place him on a 2 K bath. He is to dialyze for 3.5 hours. We will attempt to challenge his dry weight. 2. Electrolytes and acid-base balance. These are at target. 3. Anemia. This was previously low. No indications for transfusion at this time. Patient is to be discharged to follow up with the liver transplant team at [facility] tomorrow. We will defer to them. 4. Altered mental status. This has improved. I would to thank you for allowing us to follow with this patient. Dictated by EDWAR Walter for Mykel Sanchez MD cc: EDWAR Walter MD Jagan Reddy, MD
[2016-10-13] MEDS: SANDOSTATIN SUBQ SCH ×2 (13:30→13:44)
[2016-10-13] MEDS: LACTULOSE PO SCH ×2 (13:30→13:45)
[2016-10-13] MEDS: FERROUS SULFATE PO SCH ×2 (13:31→13:44)
[2016-10-13] MEDS: CORGARD PO SCH (13:44)
[2016-10-13] MEDS: FOLIC ACID PO SCH (13:44)
[2016-10-13] MEDS: PROGRAF PO SCH (13:45)
[2016-10-13] MEDS: PROTONIX IV SCH (13:45)
[2016-10-13] MEDS: XIFAXAN PO SCH (13:45)
[2016-10-13 15:00] LABS: ALBUMIN 2.6 g/dL (3.5-5.0); CALCIUM 7.3 mg/dL (8.8-10.2); POTASSIUM 3.3 mmol/L (3.5-5.1)
--- NOTE | 2016-10-13 18:40 | DISCHARGE SUMMARY ---
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 SECONDARY DIAGNOSES: 1. Anemia due to chronic blood loss from a gastric antral vascular ectasia syndrome. 2. End-stage kidney disease on dialysis. 3. Cirrhosis due to nonalcoholic steatohepatitis. 4. Type 2 diabetes. 5. Gout. 6. Hypertension. 7. Hypogonadism. 8. Hypothyroidism. 9. Pancytopenia, due to hypersplenism. 10. Umbilical hernia. 11. Sleep apnea. 12. History of subacute bacterial peritonitis. CONSULTANTS: Mykel Sanchez MD PROCEDURES: Transfusion of packed RBCs 5 units transfusion of platelets. BRIEF HISTORY: Please see the history and physical that was done by hospitalist. In brief, he is a 61-year-old morbidly obese male with above problems who was admitted to the hospital after recently discharged from [facility] transplant clinic with altered mental status, ammonia level 400. He was admitted in a critical condition in the ICU. Patient was started on NG tube with lactulose along with enema. He was given Xifaxan. The patient had 2 CT scans negative for acute bleed. He was given prophylactic antibiotics with Rocephin and vancomycin after dialysis. He was not taking his home medicines, requiring IV Synthroid, IV folic acid. Patient was given supportive care by Dr. Sanchez with dialysis as needed. He was not able to tolerate the dialysis 1 time requiring vasopressors. His condition was very poor. Family was trying to transfer to [facility]; however, there were no beds available. In the meantime, he was given supportive care with blood transfusion, platelets. After ammonia level came down to 45, his mental status slowly improved. He also has some tongue bite. He was transferred out of the ICU in a stable condition. He was able to ambulate. He was started on Sandostatin 50 mcg t.i.d. for variceal bleeding. He has an appointment to see [facility] Transplant Clinic tomorrow. He was discharged home after the dialysis. LABORATORIES AND IMAGING AT THE TIME OF DISCHARGE FOLLOWS:: Sodium 136, potassium 3.3, BUN 13, creatinine 1.4, glucose 126, ammonia level 45. CBC: White cell count 2.5, hematocrit 23, platelets 36,000. Chest x-ray was stable. CT head was stable x2. DISCHARGE INSTRUCTIONS ARE FOLLOWS: 1. Prograf 1 mg daily, Prilosec 40 daily, glipizide 10 p.o. b.i.d., Xifaxan 550 p.o. b.i.d., levothyroxine 125 mcg daily, Januvia 25 mg daily, Tums 300 t.i.d. with meals, nadolol 20 p.o. daily, folic acid 1 mg daily, Aranesp 0.5 mL subcutaneous as directed by Dr. Sanchez. Iron sulfate 325 p.o. t.i.d. Sandostatin 50 mcg subcutaneous 3 times a day. Lactulose 30 mL p.o. twice a day. 2. Follow up with outpatient transplant clinic in [facility]. cc: MD Mykel Bragg MD
== END 2016-10-13 14:52 | disposition home or self-care (01) ==
LOC: ED 20:07 → SUATTDRO 23:51 → ICU 23:51 → 3S 10-11 13:30
PROVIDERS: ADMIT Internal Medicine; ATTEND Internal Medicine

== ENCOUNTER 2016-11-03 11:33 | Inpatient (IN) ==
[2016-11-03] MEDS ORDERED: LACTULOSE PO ONE (11:53)
[2016-11-03 12:01] LABS: BASO% 0.4 % (0.0-0.8); EOS# 0.09 X1000 (0.0-0.7); EOS% 3.9 % (0.0-10.0); HEMATOCRIT 25.4 % (42.0-52.0); HEMOGLOBIN 8.2 g/dL (14.0-18.0); LYMPH# 0.49 X1000 (1.2-3.4); LYMPH% 21.5 % (20.5-51.1); MCH 32.4 PG (27-31); MCHC 32.3 g/dL (33-37); MCV 100.4 FL (81-99); MONO# 0.25 X1000 (0.11-0.59); NEUT% 63.2 % (42.2-75.2); PLT 45 X1000 (130-400); RBC 2.53 XMIL (4.7-6.1)
--- NOTE | 2016-11-03 12:09 | Diag Imaging Result Doc PS360 ---
EXAM: CHEST-PORTABLE HISTORY: AMS TECHNIQUE: AP portable upright at 1205 COMMENT: There is a right internal jugular central venous line catheter at the superior vena cava. There is no evidence of acute cardiac or pulmonary disease in the appearance of the chest has not changed significantly since 10/06/2016. IMPRESSION: Stable chest. Electronically signed by Enzo Zaman 11/03/2016 12:07 PM
[2016-11-03 12:16] LABS: ALBUMIN 2.9 g/dL (3.5-5.0); CALCIUM 8.1 mg/dL (8.8-10.2); POTASSIUM 4.2 mmol/L (3.5-5.1); TOTAL BILIRUBIN 4.18 mg/dL (0.20-1.00); TOTAL PROTEIN 5.9 g/dL (6.3-8.3)
[2016-11-03 12:23] LABS: ALLEN TEST YES; BE -1.4 mmoll (-3.0-3.0); BLOOD TYPE ARTERIAL; DRAW SITE R RADIAL; METHB 0.9 % (0.0-1.5); MODALITY ROOM AIR; O2(CT) 10.9 mL/dL (15.0-23.0); PCO2(98.6) 34 mmHg (35-45); PO2(98.6) 68 mmHg (60-100); SAMPLE BLOOD; SAO2 97.4 % (95.0-100.0); THB 8.2 g/dL (11.5-17.4); pH(98.6) 7.43 (7.35-7.45)
[2016-11-03 12:24] LABS: INR 1.22
[2016-11-03 12:29] LABS: MANUAL DIFF NEEDED? NO
[2016-11-03] MEDS ORDERED: TIGHT: 0.2 ML/HR MISC PRN (13:00)
[2016-11-03] MEDS ORDERED: NS 2,000 ML MISC PRN (13:00)
[2016-11-03] MEDS ORDERED: HEPARIN IV PRN (13:00)
--- NOTE | 2016-11-03 13:09 | PROVIDER DOCUMENTATION ---
This chart was entered by Conchita Sinclair Scribe, acting as scribe for Ray Guadarrama MD. HPI-Neurological Disorder - General Stated Complaint: ams Time Seen by Provider: 11/03/16 11:42 Source: patient, family (), EMS Allergies/Adverse Reactions: Patient Allergies Allergy/AdvReac Type Severity Reaction Status Date / Time latex Allergy Unknown RASH Verified 11/03/16 12:05 iron sucrose complex * Allergy ABDOMINAL Verified 11/03/16 12:05 [From Venofer] PAIN Home Medications: Home Medication List Medication Instructions Recorded Confirmed Last Taken Type Omeprazole 40 mg PO DAILY 08/09/13 11/03/16 11/02/16 20:00 History Tacrolimus 1 mg PO DIRECTED 08/09/13 11/03/16 11/02/16 08:00 History Glipizide [Glipizide Xl] 10 mg PO BID 05/21/15 11/03/16 11/02/16 08:00 History Rifaximin [Xifaxan] 550 mg PO BID #60 tablet 06/06/15 11/03/16 11/02/16 20:00 Rx Levothyroxine Sodium [Synthroid] 125 microgm PO DAILY 06/15/16 11/03/16 08:00 History Calcium Carbonate [Tums] 300 mg PO TID AC 08/16/16 11/03/16 11/02/16 08:00 History Folic Acid 1 mg PO DAILY 08/16/16 11/03/16 11/02/16 08:00 History Sitagliptin Phosphate [Januvia] 25 mg PO DAILY 08/16/16 11/03/16 11/02/16 20:00 History Ferrous Sulfate [Feosol] 325 mg PO TID 10/05/16 11/03/16 11/02/16 20:00 History Lactulose 45 ml PO DIRECTED 10/06/16 11/03/16 11/02/16 20:00 History Octreotide Acetate 50 mcg IJ TID 10/06/16 11/03/16 11/02/16 20:00 History Cholestyramine [Questran] 1 dose PO PRN PRN 11/03/16 11/03/16 Unknown History Cyclobenzaprine [Flexeril] 5 mg PO TID PRN PRN 11/03/16 11/03/16 Unknown History Darbepoetin Boogie [Aranesp] 1 dose SQ DIRECTED 11/03/16 11/03/16 10/31/16 08: 00 History Dicyclomine [Bentyl] 10 mg PO TID 11/03/16 11/03/16 11/02/16 20:00 History Metoclopramide [Reglan] 5 mg PO TID 11/03/16 11/03/16 11/02/16 20:00 History - History of Present Illness-Neuro Nature of Presenting Problem: Pt is 61 y/o M presents to the ED via EMS for AMS. EMS states Pt has hx of kidney and liver failure. Pt's states Pt has been altered since last night. Pt's states Pt has had N and V for 3 days. Pt's states having a liver transplant in 2008. Pt's states the liver stopped working properly in 2013. Pt's states [facility] transplant board is meeting today to see if Pt is about to have another liver transplant with kidney transplant. Headache Location: denies: frontal, temporal, occipital, parietal, global Severity: reports: moderate Onset/Duration: reports: last night Timing: reports: still present Context: reports: other (AMS) Character of Altered Mental Status: reports: disoriented, confused Any recent trauma/injury?: reports: none New weakness or altered sensation location:: reports: none Cognitive Baseline: alert but disoriented Gait Baseline: other (unsure) Associated Symptoms: reports: confusion, nausea, vomiting, other (disoriented). denies: short of breath, headache, decreased ability to walk or stand, fainting, dizziness, chest pain, neck/back pain, fatigue, fever/chills, insomnia , loss of consciousness, muscle spasms, numbness in legs/feet, paresthesia, diaphoretic, ringing in ears, seizures, sleepy, slurred speech, tingling in legs /feet, trouble walking, vision changes, weakness Similar Symptoms Previously?: Yes Recently seen or treated by another doctor?: No Review of Systems - Adult - REVIEW OF SYSTEMS - ADULT Constitutional: reports: no symptoms reported Eyes: reports: no symptoms reported Ears, Nose, Mouth & Throat: reports: no symptoms reported Cardiovascular: reports: no symptoms reported Respiratory: reports: no symptoms reported Gastrointestinal: reports: nausea, vomiting. denies: abdominal pain, diarrhea Genitourinary: reports: no symptoms reported Musculoskeletal: reports: no symptoms reported Integumentary: reports: no symptoms reported Neurological: reports: other (AMS). denies: dizziness/vertigo, headache/ migraines, numbness, slurred speech, syncope Psychiatric: reports: no symptoms reported Endocrine: reports: no symptoms reported Hematologic/Lymphatic: reports: no symptoms reported Allergic/Immunologic: reports: no symptoms reported All Other Systems: Reviewed and Negative Past History - Adult - PAST MEDICAL HISTORY-ADULT Review of Records: reports: Nursing Assessment Review, Medications Reviewed, Social history reviewed & non-contributory. Major Childhood Illnesses: reports: denies history Cardiovascular: reports: HTN Respiratory: reports: denies history Gastrointestinal: reports: denies history Obstetrical/Gynecological: reports: denies history Genitourinary: reports: dialysis, other (1/2 renal function ) Musculoskeletal: reports: denies history Neurological: reports: denies history Endocrine/Immune: reports: Diabetes, thyroid disorder Other Conditions: reports: denies history - PRIOR SURGERIES/PROCEDURES Surgical/Procedure History: reports: other (liver transplant ) - IMMUNIZATION STATUS Childhood Immunizations: See Nurse Assessment Flu Vaccine: See Nurse Assessment - FAMILY HISTORY Family History: reviewed, not pertinent - SOCIAL HISTORY Smoking: denies Substance Use: denies Living Situation: family Physical Exam- Neurological - Physical Exam-Neuro Initial Vital Signs Reviewed: Yes General Appearance: alert, slow to respond, other (disoriented). negative: appears well (ill in appearance) Eye Exam: bilateral eye: PERRL, other (jaundice sclerae ) HENMT: normocephalic/atraumatic, moist mucous membranes, normal ENT inspection Head Injury: no evidence of injury Neck: normal inspection Respiratory: chest non-tender, lungs clear, normal breath sounds Cardiovascular: normal peripheral pulses, regular rate, rhythm Abdominal Exam: distended, other (enlarged liver and spleen per palpation) Lymphatic: no adenopathy Extremity: normal range of motion, non-tender. negative: deformity, erythema, tenderness clerical production worker Exam: PERRL. negative: abnormal eye position, abnormal pupil position, facial droop, facial weakness Motor/Sensory: no motor deficit, no pronator drift Neurologic: other (confused and disoriented) Integumentary: normal turgor, warm/dry, jaundice Psych/Mental Status: disoriented x 3, other (confused) Progress - PLAN OF CARE/RESULTS Progress/Plan/Lab Results: Vital Signs - 8 hr 11/03/16 11:47 11/03/16 12:16 11/03/16 12:54 Temperature 98.0 F Pulse Rate 80 78 75 Respiratory Rate 14 17 19 Blood Pressure 123/85 123/85 126/60 O2 Sat by Pulse Oximetry 97 Laboratory Results - last 24 hr 11/03/16 11/03/16 11/03/16 11:30 11:30 11:30 WBC 2.28 L RBC 2.53 L Hgb 8.2 L Hct 25.4 L MCV 100.4 H MCH 32.4 H MCHC 32.3 L RDW Std Deviation 23.2 H Plt Count 45 L MPV 10.0 Immature Gran % (Auto) 0.0 Neut % (Auto) 63.2 Lymph % (Auto) 21.5 [place] % (Auto) 11.0 H Eos % (Auto) 3.9 Baso % (Auto) 0.4 Immature Gran # (Auto) 0.00 Neut # (Auto) 1.44 Lymph # (Auto) 0.49 L [place] # (Auto) 0.25 Eos # (Auto) 0.09 Baso # (Auto) 0.01 Segmented Neutrophils Cancelled Band Neutrophils Cancelled Lymphocytes Cancelled Monocytes Cancelled Eosinophils Cancelled Basophils Cancelled Metamyelocytes Cancelled Myelocytes Cancelled Promyelocytes Cancelled Nucleated RBCs Cancelled Atypical Lymphocytes Cancelled Blast Cells Cancelled Hypochromia Cancelled Vacuolization Cancelled Toxic Granulation Cancelled Dohle Bodies Cancelled Large Platelets Cancelled Polychromasia Cancelled Poikilocytosis Cancelled Basophilic Stippling Cancelled Anisocytosis Cancelled Microcytosis Cancelled Macrocytosis Cancelled Spherocytes Cancelled Sickle Cells Cancelled Target Cells Cancelled Ovalocytes Cancelled Stomatocytes Cancelled [place] Bodies Cancelled [place] Cells Cancelled Unidentified Cells Cancelled Schistocytes Cancelled PT INR Specimen Type Sample Site pH pCO2 pO2 HCO3 Base Excess Oxyhemoglobin ABG O2 Sat (Calculated) ABG O2 Saturation ABG Carboxyhemoglobin ABG Methemoglobin Marco Test A-a O2 Difference Total Hemoglobin Lactate Blood Gas Modality FiO2 % Sodium 140 Potassium 4.2 Chloride 101 Carbon Dioxide 21 L Anion Gap 18 BUN 64 H Creatinine 5.7 H Estimated GFR/1.73 m2 10 BUN/Creatinine Ratio 11 Glucose 89 Calculated Osmolality 297 Calcium 8.1 L Magnesium 2.8 H Total Bilirubin 4.18 H AST 41 H ALT 21 Alkaline Phosphatase 150 H Troponin T Total Protein 5.9 L Albumin 2.9 L Globulin 3.0 Albumin/Globulin Ratio 1.0 11/03/16 11/03/16 11/03/16 11:30 11:30 12:12 WBC RBC Hgb Hct MCV MCH MCHC RDW Std Deviation Plt Count MPV Immature Gran % (Auto) Neut % (Auto) Lymph % (Auto) [place] % (Auto) Eos % (Auto) Baso % (Auto) Immature Gran # (Auto) Neut # (Auto) Lymph # (Auto) [place] # (Auto) Eos # (Auto) Baso # (Auto) Segmented Neutrophils Band Neutrophils Lymphocytes Monocytes Eosinophils Basophils Metamyelocytes Myelocytes Promyelocytes Nucleated RBCs Atypical Lymphocytes Blast Cells Hypochromia Vacuolization Toxic Granulation [place] Bodies Large Platelets Polychromasia Poikilocytosis Basophilic Stippling Anisocytosis Microcytosis Macrocytosis Spherocytes Sickle Cells Target Cells Ovalocytes Stomatocytes [place] Bodies Juan Cells Unidentified Cells Schistocytes PT 13.0 H INR 1.22 Specimen Type ARTERIAL Sample Site R RADIAL pH 7.43 pCO2 34 L pO2 68 HCO3 23.8 Base Excess -1.4 Oxyhemoglobin 93.4 L ABG O2 Sat (Calculated) 10.9 L ABG O2 Saturation 97.4 ABG Carboxyhemoglobin 3.30 H ABG Methemoglobin 0.9 Marco Test YES A-a O2 Difference 39.0 Total Hemoglobin 8.2 L Lactate 2.40 H Blood Gas Modality ROOM AIR FiO2 % 21.0 Sodium Potassium Chloride Carbon Dioxide Anion Gap BUN Creatinine Estimated GFR/1.73 m2 BUN/Creatinine Ratio Glucose Calculated Osmolality Calcium Magnesium Total Bilirubin AST ALT Alkaline Phosphatase Troponin T 0.065 Total Protein Albumin Globulin Albumin/Globulin Ratio Orders Category Date Time Status Cardiac Monitoring DIRECTED Care 11/03/16 11:43 Active Dialysate Bath: DIRECTED Care 11/03/16 13:00 Active Dialysate Flow: DIRECTED Care 11/03/16 13:00 Active Dialysis Blood Flow: DIRECTED Care 11/03/16 13:00 Active Dialysis Machine Settings: DIRECTED Care 11/03/16 13:00 Active Dialysis Treatment Time: DIRECTED Care 11/03/16 13:00 Active Dialysis Treatment Weight ROUTINE Care 11/03/16 13:00 Active Dialysis UF Removal Amount: DIRECTED Care 11/03/16 13:00 Active Dialyzer Type: DIRECTED Care 11/03/16 13:00 Active Finger Stick Blood Sugar (ED) DIRECTED Care 11/03/16 11:43 Active NRSG - Obtain Dialysis Consent NOW Care 11/03/16 13:00 Active SLED Misc. NRSG Orders DIRECTED Care 11/03/16 11:54 Active Saline Loc NOW Care 11/03/16 11:43 Active CHEST-PORTABLE [RAD] Stat Exams 11/03/16 11:43 Completed ABG [RESP] Routine Lab 11/03/16 12:12 Completed AMMONIA [CHEM] Stat Lab 11/03/16 12:49 Received CBC WITH DIFF [HEME] Stat Lab 11/03/16 11:30 Completed COMPREHENSIVE METABOLIC PANEL [CHEM] Stat Lab 11/03/16 11:30 Completed MAGNESIUM [CHEM] Stat Lab 11/03/16 11:30 Completed PROTIME WITH INR [COAG] Stat Lab 11/03/16 11:30 Completed TROPONIN T Stat Lab 11/03/16 11:30 Completed URINALYSIS W/POSS RFLX CULT-1 [URINALYSIS] Stat Lab 11/03/16 11:43 Uncollected 0.9% Sodium Chloride Inj [Ns] 2,000 ml Med 11/03/16 13:00 Discontinued MISC As Directed Heparin Med 11/03/16 13:00 Discontinued 1,000 unit IV BOLUS PRN Heparin 1000 Units/ml [Tight: 0.2 ml/Hr] Med 11/03/16 13:00 Discontinued 1 each MISC DIRECTED PRN Lactulose Med 11/03/16 11:53 Discontinued 30 ml PO NOW ONE Pulse Oximetry Stat Oth 11/03/16 11:43 Active EKG [EKG] Stat Ther 11/03/16 11:43 Ordered Result Diagrams: 11/03/16 11:30 11/03/16 11:30 - EKG 1 Time of EKG reading by physician:: 12:10 EKG Read and Signed by:: Ray Guadarrama EKG Interpretation (*Must complete 3 of following elements*): Abnormal Rate: 77 Rhythm: sinus rhythm with 1st degree AV block Comments: low voltage QRS; prolonged QT - XRAY 1 XRAY Study: Chest Impression: Normal XRAY Interpretation: stable chest - CONSULTS/PCP/HOSPITALIST Notification #1 *Consult/PCP/Hospitalist*: Dr. PJ. Zavala Time Discussed: 13:06 Consult Disposition: Admit Departure - Departure Date of Disposition Decision: 11/03/16 Time of Disposition Decision: 13:07 DIAGNOSIS: Encephalopathy Disposition: ADMITTED INPATIENT 09 Certified Medical Emergency: Emergent Condition: Stable Referrals and Follow-Ups: Nikolay Zavala MD [Primary Care Provider] - - Critical Care Note This patient required my direct & personal management of CC.: Yes Total Time (mins): 30 Critical Care Statement: This patient required my direct personal management to treat or rule out processes, the absence of which, could potentiallly result in sudden, clinically significant life or limb threatening deterioration. This chart was documented by the indicated scribe, (Conchita Sinclair Scribe) and accurately reflects the services I performed and decisions made by me, Ray Guadarrama MD, as attested by the provider's signature.
--- NOTE | 2016-11-03 13:13 | EKG Report ---
Test Performed on : 11/03/2016 12:10:28 PM Test Reason : AMS Blood Pressure : / mmHG Vent. Rate : 077 BPM Atrial Rate : 077 BPM P-R Int : 228 ms QRS Dur : 086 ms QT Int : 448 ms P-R-T Axes : 044 048 050 degrees QTc Int : 506 ms Sinus rhythm. with 1st degree AV block. Low voltage QRS Prolonged QT Abnormal ECG When compared with ECG of 05-OCT-2016 20:13, T wave inversion no longer evident in Anterior leads Unconfirmed Result
[2016-11-03] MEDS ORDERED: MISC. PHARMACY COMMUNICATION SCH (13:15)
[2016-11-03] MEDS ORDERED: NON-FORMULARY BULK MED PR ONE (14:00)
--- NOTE | 2016-11-03 17:46 | Diag Imaging Result Doc PS360 ---
EXAM: HEAD W/O CONTRAST INDICATION: AMS COMPARISON: 10/07/2016 FINDINGS: There is no definite acute infarct given the limited sensitivity of CT versus MRI. There is no discrete intracranial mass, mass effect, or intracranial hemorrhage. The surrounding soft tissues and bony structures are essentially unremarkable. IMPRESSION: No evidence of acute intracranial pathology. Electronically signed by Lucas Carrasco 11/03/2016 5:44 PM
[2016-11-03] MEDS: LACTULOSE PO SCH (20:39)
[2016-11-03] MEDS: XIFAXAN PO SCH (20:40)
[2016-11-03] MEDS: PROGRAF PO SCH (20:45)
[2016-11-03] MEDS ORDERED: GLUCOTROL XL PO SCH (21:00)
--- NOTE | 2016-11-03 23:03 | CONSULTATION ---
DATE OF CONSULTATION: 11/03/2016 REASON FOR ADMISSION: Altered mental status. REASON FOR CONSULT: End-stage renal disease with assistance with medical management. CONSULTING PHYSICIAN: Dr. Nikolay Zavala. HISTORY OF PRESENT ILLNESS: Mr. Cortes is a 61-year-old white male who is known to our outpatient services for hemodialysis on Thursday, Thursday, Thursday at the [facility]. Patient is due for dialysis today and has missed his appointment secondary to altered mental status. His states that in the last several days since his discharge from [facility] he has continued to have decreased appetite, some diarrhea stool secondary to his lactulose and his ammonia level has elevated. He is confused though pleasant. He is unable to give review of systems though the states he denies any chest pain. No increased work of breathing. No nausea and vomiting. Positive for chronic diarrhea stool secondary to medication induced lactulose. He has isolated abdominal cramping at times. No increased lower extremity swelling. No palpitations noted. No fever or chills. Patient has recently been hospitalized for the same episode with discharge on 10/13 and previous discharge on 10/05. He has recently been down to [facility] for evaluation. His states that they are meeting today with the liver transplant team to evaluate if he is eligible for a 2nd liver transplant and kidney transplant. She hopes to hear within the next several days. Patient does have persistent ongoing GI bleed though they have not seen any black tarry stools this visit. He has had multiple transfusions in the past especially over the last 1-2 years and is followed by Dr. Acevedo. He was previously transferred to [facility] after his last admission and has been home for approximately 1-1/2 weeks. He is arousable though he is forgetful. PAST MEDICAL HISTORY: Hepatic cirrhosis secondary to steatohepatitis, secondary patient has had 1 liver transplant, end-stage renal disease, GI bleed, iron deficiency anemia, hypertension, hypothyroidism and pancytopenia. PAST SURGICAL HISTORY: Liver transplant and a tunnel catheter to the right chest wall with fistula placement. SOCIAL HISTORY: He is . He lives with his spouse. He has children who are attentive to his care. No history of tobacco, alcohol or illicit drug use. FAMILY HISTORY: No history of kidney disease or coronary artery disease. ALLERGIES: To latex and Venofer iron with severe stomach upset. HOME MEDICATIONS: Last home medications are listed as tacrolimus, omeprazole, glipizide, Xifaxan, Synthroid, Januvia, Tums, folic acid, Feosol, octreotide acetate, lactulose, Reglan, Bentyl, Aranesp, Questran and Flexeril. REVIEW OF SYSTEMS: Times 10 with pertinent positives listed above in the HPI obtained per and son. VITAL SIGNS: Most recent vital signs. Last temperature 98 degrees, blood pressure 123/85, heart rate is 80, respirations are 14. He is on room air. Last recorded saturation is 97%. LABS: Sodium 140, potassium 4.2, chloride 101, CO2 21, BUN 64, creatinine 5.7, glucose is 89. Last anion gap of 18, calcium is 8.1. His last albumin is 2.9. He has negative troponin workup. His ammonia level was 59. White count 2.28, hemoglobin 8.2, hematocrit 25.4, with a platelet count of 45,000. PT 13, INR 1.22. ABGs pH 7.43, CO2 34, PO2 68, bicarb 23.8, his oxyhemoglobin is 93.4, lactate of 2.4, this is on room air. PHYSICAL EXAMINATION: General: This is a 61-year-old white male. He is currently resting in bed. He is in no acute distress. Skin: Warm and dry. HEENT: Normocephalic, atraumatic. Conjunctiva is pale. He has CRESCENCIO. Mucous membranes moist. Neck: Supple. Trachea midline. Unable to determine JVD. Cardiovascular: He is regular rate and rhythm. Distant heart sounds are noted. No murmur or gallop appreciated. Lungs: Clear to auscultation anteriorly. Equal excursion on room air. Abdomen: Obese, soft, nontender. Positive bowel sounds. Genitourinary: Not inspected. Patient has very minimal void with dialysis assist. Extremities : Trace edema. No clubbing or cyanosis. Neurological: As above. ASSESSMENT AND PLAN: 1. End-stage renal disease. Patient is due for his routine dialysis treatment today. We will place him on an appropriate potassium bath. Will dialyze in 3-1/2 hours and pull patient to his dry weight. 2. Electrolytes and acid-base balance. These are at goal. 3. Anemia. This remains low. This is followed by his GI and his liver transplant team at [facility]. 4. Altered mental status. Again this is possibly related to his hepatic encephalopathy as previous. We will defer to the primary care team. I would like to thank you for allowing us to follow with this patient. Seen, data reviewed, discussed with [place] on 11/03/16. I agree with the above assessment and plan of care. rg Dictated by EDWAR Walter for Mykel Sanchez MD cc: EDWAR Walter MD Jagan Reddy, MD [facility]
--- NOTE | 2016-11-03 23:38 | HISTORY AND PHYSICAL ---
CHIEF COMPLAINT: Altered mental status. HISTORY OF PRESENT ILLNESS: A 61-year-old pleasant white gentleman with a known history of cirrhosis of the liver, failed liver transplant, with chronic gastrointestinal bleeding due to Graves syndrome, and end-stage kidney disease on dialysis. He was evaluated on Thursday. He did receive 3 units of packed RBCs, had dialysis, and woke up this morning with mental confusion, unresponsive. called callie, called [facility], and they asked her to go to the emergency room for lactulose and admit to the hospital. She called my office. She wants him to be admitted as a direct admission. She called the ambulance, and 911 came to the ER. ER workup revealed ammonia encephalopathy. He was trying to give lactulose. The workup was done by Dr. Parish. Admitted in ICU. Dr. Sanchez was consulted, and he did dialysis. Ammonia level 59. Currently, he is stable, and basically admitted to the hospital with altered mental status due to ammonia encephalopathy. He denies any fever. PAST MEDICAL HISTORY: Chronic kidney disease on hemodialysis, cirrhosis due to ELENA, diabetes, GERD, hypertension, hypogonadism, hypothyroidism, obesity, pancytopenia, umbilical hernia. PAST SURGICAL HISTORY: Orthotopic liver transplant, right tunnelled catheter, vasectomy. MEDICATIONS: Prograf 1 mg daily, Prilosec 40 daily, glipizide 10 p.o. b.i.d., Xifaxan 550 p.o. b.i.d., Synthroid 125 daily, Januvia 25 daily, Tums 300 t.i.d., folic acid 1 mg daily, iron sulfate 325 daily, octreotide 50 subcu t.i.d., lactulose 40 mL p.o. b.i.d. Reglan was discontinued. Aranesp as directed. ALLERGIES: Latex, iron, sucrose. SOCIAL HISTORY: . Lives in [place]. Two children. Retired from [employer]. FAMILY HISTORY: Father of heart attack at 60. Mom has breast cancer. HEALTH MAINTENANCE: Flu vaccine 2015, pneumococcal vaccine 2015, colonoscopy 2013. REVIEW OF SYSTEMS: Unable to obtain. Patient was confused. PHYSICAL EXAMINATION: VITAL SIGNS: Afebrile. Vitals are stable. HEENT: Atraumatic, normocephalic. Pupils equal, reactive to light. HEENT exam within normal limits. NECK: Supple. No lymphadenopathy. CHEST: Bilateral air entry. No rales, no wheezing. HEART: Sounds are regular. ABDOMEN: Belly is soft, nontender. Good bowel sounds. No masses palpable. RECTAL: Deferred. EXTREMITIES: A lot of tissue edema noted. Chronic stasis dermatitis. NEUROLOGIC: No asterixis noted. INVESTIGATIONS: CBC: White cell count 2.3, hematocrit 25, platelets 45. PT 13, INR 1.3. ABG: pH is 7.43, pCO2 34, PO2 68, on room air. SMA-7 is normal. BUN 64, creatinine 5.7. LFTs: Total bilirubin 4.1, slightly increasing. CT head: No acute intracranial pathology. Chest x-ray: Stable chest. Tunnelled catheter present on the right side. EKG: Normal sinus rhythm. First- degree AV block. Nothing acute. ASSESSMENT AND PLAN: 1. A 61-year-old white gentleman, admitted to the hospital with altered mental status due to ammonia encephalopathy. Continue lactulose and Xifaxan. 2. End-stage kidney disease, on dialysis. 3. Anemia due to chronic Graves syndrome. Blood transfusion as needed. 4. Continue on octreotide. 5. Type 2 diabetes, on Januvia, glipizide. 6. Orthotopic liver transplant, on Prograf. 7. Hypothyroidism, on Synthroid. I will repeat the blood workup in the morning, A1c, since he has kidney disease, and will discontinue the glipizide and keep on Januvia. Follow up on blood sugars. Living will is full code. Discussed with the family. Will follow up. cc: Fabricio Zavala MD
[2016-11-04 06:19] LABS: CALCIUM 7.9 mg/dL (8.8-10.2); POTASSIUM 3.9 mmol/L (3.5-5.1)
[2016-11-04 06:20] LABS: BASO% 0.5 % (0.0-0.8); EOS# 0.08 X1000 (0.0-0.7); EOS% 4.4 % (0.0-10.0); HEMATOCRIT 21.3 % (42.0-52.0); HEMOGLOBIN 6.7 g/dL (14.0-18.0); LYMPH# 0.52 X1000 (1.2-3.4); LYMPH% 28.4 % (20.5-51.1); MANUAL DIFF NEEDED? YES; MCH 32.4 PG (27-31); MCHC 31.5 g/dL (33-37); MCV 102.9 FL (81-99); MONO# 0.25 X1000 (0.11-0.59); MONO% 13.7 % (1.7-9.3); PLT 44 X1000 (130-400); RBC 2.07 XMIL (4.7-6.1)
[2016-11-04] MEDS: TUMS EXTRA STRENGTH PO SCH ×3 (06:20→16:05)
[2016-11-04] MEDS: SYNTHROID PO SCH (06:20)
[2016-11-04] MEDS: HUMULIN R SUBQ SCH ×4 (06:24→20:20)
[2016-11-04 07:07] LABS: HEMOGLOBIN A1C 4.6 % (4.8-6.0)
[2016-11-04 07:47] LABS: BANDS 2 % (0-1); LYMPHS 19 % (21-51); MONO 6 % (1-9)
[2016-11-04] MEDS: LACTULOSE PO SCH ×4 (08:15→20:20)
[2016-11-04] MEDS: JANUVIA PO SCH (08:15)
[2016-11-04] MEDS: FERROUS SULFATE PO SCH ×3 (08:16→16:03)
[2016-11-04] MEDS: FOLIC ACID PO SCH (08:21)
[2016-11-04] MEDS: XIFAXAN PO SCH ×2 (08:38→20:20)
[2016-11-04] MEDS: SANDOSTATIN INJ SCH ×3 (09:00→16:25)
--- NOTE | 2016-11-04 10:05 | PROGRESS NOTE ---
DATE: 11/04/2016 TIME SEEN: 0755 hours. SUBJECTIVE: Mr. Cortes is resting quietly in bed. Dr. Zavala has just been in his room. He denies any chest pain or increased work of breathing. He is a little bit more alert today. OBJECTIVE: His most recent vital signs: Temperature 98.4 degrees, blood pressure 96/49, heart rate 77, respirations 14. He is on room air. Last recorded saturation 96%. He has had 600 in; he has had 2.4 L out on dialysis. LABS: Sodium 142, potassium 3.9, chloride 104, CO2 28, BUN 36, creatinine 3.9, glucose 71, anion gap 10, calcium 7.9. He has a TSH of 7.46. Hemoglobin 6.7, hematocrit 21.3, platelet count 44 with a white count of 1.83. PHYSICAL EXAMINATION: General: This is a 72-year-old white male. He is currently resting in bed. He is in no acute distress. Skin: Warm and dry. HEENT: Normocephalic, atraumatic. Conjunctiva is pale. He has CRESCENCIO. Mucous membranes are dry. Neck: Supple. Trachea midline. No JVD. Cardiovascular: Regular rate and rhythm. Distant heart sounds noted. No murmur or gallop. Lungs: Clear to auscultation anteriorly. Equal excursion on room air. Abdomen: Obese, soft, nontender. Positive bowel sounds. Genitourinary: Not inspected. Minimal void with dialysis assist. Extremities: Have trace to 1+ lower extremity edema. No clubbing or cyanosis. Neurological: As above. ASSESSMENT AND PLAN: 1. End-stage renal disease. Patient is due for his routine dialysis treatment in the morning. He tolerated dialysis yesterday. 2. Electrolytes and acid-base balance. These are at goal. 3. Anemia. This remains low. Gastroenterology has been following. If this continues, we will possibly plan for transfusion on dialysis tomorrow. 4. Altered mental status. Known hepatic encephalopathy. This is slowly improved. Followed by PCP. I would like to thank you for allowing us to follow with this patient. Seen, data reviewed, discussed with [place] on 11/04/16. I agree with the above assessment and plan of care. rg Dictated by EDWAR Walter for Mykel Sanchez MD cc: EDWAR Walter MD Jagan Reddy, MD MTDD
[2016-11-04] MEDS: PRILOSEC PO SCH (10:58)
[2016-11-04 11:48] LABS: HEPATITIS PROFILE ACUTE SEE COMMENTS
[2016-11-04 17:07] LABS: URINE SOURCE CLEAN CATCH
[2016-11-04 17:10] LABS: URINE MICRO REVIEW NEEDED? YES
[2016-11-04 17:11] LABS: BILIRUBIN URINE SMALL (NEGATIVE); BLOOD URINE SMALL (NEGATIVE); COLOR YELLOW; GLUCOSE URINE NEGATIVE (NEGATIVE); LEUKOCYTES URINE LARGE (NEGATIVE); NITRITE URINE NEGATIVE (NEGATIVE); PROTEIN URINE 30 mg/dL (NEGATIVE); TURBIDITY URINE HAZY (CLEAR); UROBILINOGEN URINE 2 mg/dL (NORMAL)
[2016-11-04 17:15] LABS: UR EPITHELIAL CELLS <10 /HPF (<10); URINE BACTERIA NEGATIVE /HPF; URINE CULTURE NEEDED? YES; URINE RBC <10 /HPF (<10); URINE WBC TNTC /HPF (<10)
[2016-11-04 17:37] LABS: URINE CASTS NONE SEEN; URINE CRYSTALS NONE SEEN; URINE SMALL ROUND CELLS RENAL PRESENT
--- NOTE | 2016-11-04 18:30 | PROGRESS NOTE ---
DATE: 11/04/2016 SUBJECT: Patient was seen in the ICU. Discussed with the family in the waiting room. Interval history. Patient has a dialysis. He is more awake. REVIEW OF SYSTEMS: HEENT: No headache. Cardiopulmonary: No chest pain, shortness of breath. GI: No abdominal pain. : No history of hesitancy, frequency. Extremities : No swelling of feet. Review of systems none reported. EXAMINATION: Vital signs: She is afebrile, blood pressure is 119/71 and he is on room air 100%. HEENT: Slightly pale, jaundiced. Neck: Supple. Chest: Clear to auscultation. Heart: Sounds are regular. Belly: Soft, obese. No tissue edema noted, right upper quadrant scar present. Extremities: Chronic venous stasis changes noted. Neuro: No asterixis, no focal deficits. INVESTIGATIONS: White cell count 1.8, hematocrit 21, platelets 44,000. SMA 7, creatinine 3.9. TSH 7.46. Hemoglobin A1c 4.6. ASSESSMENT AND PLAN: 1. Altered mental status due to ammonia encephalopathy improving. Continue lactulose 45 mL 4 times daily along with xifaxan. 2. Diabetes well-controlled, A1c 4.9. Discussed with the patient . Discontinue glipizide. Continue on Januvia. 3. End-stage kidney disease on dialysis tomorrow. 4. Anemia due to chronic gastrointestinal bleeding. Transfuse 2 units during dialysis in the morning. 5. Transfer orders have been done on the floor and will be discharged home in the morning after dialysis. Also check the ammonia levels. Please see the transfer orders on the EMR. LEVEL OF DOCUMENTATION: Is 25 minutes. cc: Fabricio Zavala MD [facility]
[2016-11-04] MEDS: ZOFRAN IV PRN (21:10)
[2016-11-04] MEDS ORDERED: REGLAN IV ONE (21:40)
[2016-11-04] MEDS ORDERED: NS 250 ML ONE (22:01)
[2016-11-05 06:00] LABS: HEMATOCRIT 22.9 % (42.0-52.0); HEMOGLOBIN 7.5 g/dL (14.0-18.0)
[2016-11-05] MEDS: HUMULIN R SUBQ SCH ×4 (06:03→21:11)
[2016-11-05] MEDS: TUMS EXTRA STRENGTH PO SCH ×3 (06:07→16:27)
[2016-11-05] MEDS: PRILOSEC PO SCH (06:07)
[2016-11-05] MEDS: SYNTHROID PO SCH (06:08)
[2016-11-05] MEDS ORDERED: HEPARIN IV PRN (06:56)
[2016-11-05] MEDS ORDERED: TIGHT: 0.2 ML/HR MISC PRN (06:56)
[2016-11-05] MEDS ORDERED: NS 2,000 ML MISC PRN (06:56)
--- NOTE | 2016-11-05 07:31 | PROGRESS NOTE ---
DATE: 11/05/2016 SUBJECTIVE: He has been doing well until 8 p.m. According to the nurses, he had hematemesis, vomiting of blood and food, heme-positive stools. Hemodynamics were stable. Last night, he was given 1 unit of platelets, 2 units of FFP and 2 units of packed RBCs. He was also given Reglan and Zofran for nausea. His mental status is stable. This morning he looks stable, awake, not confused. OBJECTIVE: Vital Signs: On examination, he is afebrile. Hemodynamics were stable. Blood pressure is 127/72. HEENT: Exam pale, jaundiced. Neck: Supple. No lymphadenopathy. Chest: Clear to auscultation. Heart: Sounds are regular. Belly is soft, nontender. Good bowel sounds. No masses palpable. No asterixis noted. No obvious deficits noted. LABS: This morning, hematocrit was 22.9. Ammonia levels were pending. ASSESSMENT AND PLAN: 1. 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 Continue on Sandostatin, hematological support. 2. Ammonia encephalopathy. Continue on lactulose and Xifaxan. Check the ammonia level. 3. End-stage kidney disease. Going for dialysis today. 4. Diabetes. Discontinue glipizide. On Januvia 25 mg daily. 5. Hypothyroidism on Synthroid. TSH was slightly high. He was given 1 IV dose yesterday. 6. Anemia. He is going to receive 2 more units of packed RBCs during dialysis and if he is stable, will be transferred out of the ICU. LEVEL OF DOCUMENTATION: Twenty-five minute. cc: MD GIGI Bragg
[2016-11-05] MEDS: JANUVIA PO SCH (08:14)
[2016-11-05] MEDS: LACTULOSE PO SCH ×2 (08:14→12:44)
[2016-11-05] MEDS: FERROUS SULFATE PO SCH ×3 (08:15→17:44)
[2016-11-05] MEDS: XIFAXAN PO SCH ×2 (08:15→21:14)
[2016-11-05] MEDS: FOLIC ACID PO SCH (08:15)
[2016-11-05] MEDS: SANDOSTATIN INJ SCH ×3 (09:38→16:58)
[2016-11-05] MEDS ORDERED: NS 2,000 ML ONE (10:59)
--- NOTE | 2016-11-05 14:11 | PROGRESS NOTE ---
DATE: 11/05/2016 SUBJECTIVE: He is feeling better today. He had some vomiting after he took his lactulose dose last evening. He has had a bowel movement today. OBJECTIVE: Vital Signs: Blood pressure 122/76, heart rate 69, respirations 19, afebrile. Generally, he is an obese man in no acute distress. Skin is warm and dry. Conjunctivae are pink. Neck veins are not visible. Trachea is midline. Heart is regular. No gallops. Lungs have equal breath sounds. No crackles. Abdomen soft, nontender. Bowel sounds present. Extremities have 2+ edema. No clubbing or cyanosis. Neurologic: Asterixis is still present. LABORATORY DATA: None today. IMPRESSION: 1. End-stage kidney disease. He will have his routine hemodialysis treatment today. 2. Anemia. Two more units of blood on dialysis today. 3. Hepatic encephalopathy. Slow improvement. 4. Malnutrition. He is eating better. cc: MD Fabricio Cervantes MD
[2016-11-05] MEDS: LACTULOSE SCH ×2 (18:17→22:39)
[2016-11-05] MEDS: PROGRAF PO SCH (18:18)
[2016-11-06 04:32] LABS: MANUAL DIFF NEEDED? NO
[2016-11-06 04:37] LABS: BASO% 0.5 % (0.0-0.8); EOS# 0.06 X1000 (0.0-0.7); HEMATOCRIT 29.2 % (42.0-52.0); HEMOGLOBIN 9.6 g/dL (14.0-18.0); LYMPH# 0.48 X1000 (1.2-3.4); LYMPH% 23.9 % (20.5-51.1); MCH 31.4 PG (27-31); MCHC 32.9 g/dL (33-37); MCV 95.4 FL (81-99); MONO# 0.17 X1000 (0.11-0.59); MONO% 8.5 % (1.7-9.3); MPV 9.7 FL (7.4-10.4); NEUT% 64.1 % (42.2-75.2); PLT 42 X1000 (130-400); RBC 3.06 XMIL (4.7-6.1)
[2016-11-06 04:52] LABS: CALCIUM 8.1 mg/dL (8.8-10.2); POTASSIUM 4.5 mmol/L (3.5-5.1)
[2016-11-06] MEDS: SYNTHROID PO SCH (06:00)
[2016-11-06] MEDS: PRILOSEC PO SCH (06:00)
[2016-11-06] MEDS: HUMULIN R SUBQ SCH ×4 (06:00→20:45)
[2016-11-06] MEDS: TUMS EXTRA STRENGTH PO SCH ×3 (06:01→16:10)
--- NOTE | 2016-11-06 08:49 | Diag Imaging Result Doc PS360 ---
EXAM: CHEST/ABD TUBE PLACEMENT HISTORY: NGT placement TECHNIQUE: AP upper abdomen upright portable at 0839 COMMENT: There is an NG tube which is coiled in the midline in the upper abdomen presumably in the fundus of the stomach. Multiple surgical clips are seen in the upper abdomen to the right of the midline. There is gas apparently in the colon seen in the upper abdomen. IMPRESSION: NG tube in stomach. Electronically signed by Enzo Zaman 11/06/2016 8:47 AM
[2016-11-06] MEDS: ROCEPHIN 1 GM/NS 1 GM/50 ML IVPB IV SCH (08:53)
[2016-11-06] MEDS: FOLIC ACID PO SCH (08:57)
[2016-11-06] MEDS: XIFAXAN PO SCH ×2 (08:57→20:13)
[2016-11-06] MEDS: FERROUS SULFATE PO SCH ×3 (08:57→16:10)
[2016-11-06] MEDS: JANUVIA PO SCH (08:57)
[2016-11-06] MEDS: SANDOSTATIN INJ SCH ×3 (09:17→16:10)
[2016-11-06] MEDS: LACTULOSE SCH (09:17)
--- NOTE | 2016-11-06 09:47 | PROGRESS NOTE ---
DATE: 11/06/2016 SUBJECTIVE: The patient is somnolent and did not arouse on my exam. OBJECTIVE: Vital Signs: Blood pressure 130/78, heart rate 74, respirations 14, afebrile. Intake 1.4 liters, output 2.7 liters. General: No acute distress. Skin: Warm and dry and mildly jaundiced. HEENT: Conjunctivae are pink. Neck: The neck veins are not visible. Heart: Regular without gallops. Lungs: Have equal breath sounds. No crackles. Abdomen: Distended and soft. Bowel sounds are present. Extremities: Have no edema, clubbing, or cyanosis. LABORATORY DATA: Sodium 142, potassium 4.5, chloride 104, bicarbonate 26, BUN 31 creatinine 3.2. Hemoglobin 9.6. IMPRESSION: 1. End-stage kidney disease. No dialysis today. 2. Electrolytes/acid base, in target. 3. Anemia, improved following transfusion. 4. Obtundation. His ammonia was 218 yesterday afternoon and 139 this morning. Nasogastric tube was placed for administration of lactulose. Observe. cc: MD Fabricio Cervantes MD
[2016-11-06] MEDS ORDERED: SYNTHROID IV ONE (10:34)
[2016-11-06] MEDS ORDERED: SODIUM CHLORIDE 0.9% INJ ONE (10:34)
[2016-11-06 11:14] LABS: ALBUMIN 2.8 g/dL (3.5-5.0); CALCIUM 8.1 mg/dL (8.8-10.2); POTASSIUM 4.8 mmol/L (3.5-5.1); TOTAL BILIRUBIN 6.66 mg/dL (0.20-1.00); TOTAL PROTEIN 6.2 g/dL (6.3-8.3)
[2016-11-06 11:19] LABS: BASO% 0.4 % (0.0-0.8); EOS# 0.04 X1000 (0.0-0.7); EOS% 1.5 % (0.0-10.0); HEMATOCRIT 30.8 % (42.0-52.0); HEMOGLOBIN 10.3 g/dL (14.0-18.0); LYMPH# 0.45 X1000 (1.2-3.4); LYMPH% 16.9 % (20.5-51.1); MANUAL DIFF NEEDED? YES; MCH 32.1 PG (27-31); MCHC 33.4 g/dL (33-37); MONO# 0.23 X1000 (0.11-0.59); MONO% 8.6 % (1.7-9.3); MPV 9.6 FL (7.4-10.4); NEUT% 72.6 % (42.2-75.2); PLT 37 X1000 (130-400); RBC 3.21 XMIL (4.7-6.1)
[2016-11-06 11:38] LABS: BANDS 2 % (0-1); EOS 1 % (1-10); LYMPHS 17 % (21-51); MONO 5 % (1-9)
[2016-11-06 12:03] LABS: HCV BY PCR SEE COMMENTS; HCV CHARGE YES
[2016-11-06] MEDS: LACTULOSE NG SCH ×3 (12:37→20:12)
--- NOTE | 2016-11-07 04:29 | PROGRESS NOTE ---
DATE: 11/06/2016 SUBJECTIVE: The last 24 hours, the patient is more confused, obtunded. Ammonia level has gone up. He is now bleeding, upper GI bleeding. He has thrown up hematemesis, vomiting, no blood. We were not able to place an NG tube yesterday, with extreme agitation. I was afraid of giving more sedation. He was given lactulose enemas. This morning, he is awake, confused. I attempted NG tube again, without any resistance and agitation. Still has some intermittent bleeding. NG tube was confirmed on the x-rays. The patient was given lactulose 45 mL 4 times daily. REVIEW OF SYSTEMS: Unable to obtain. Apparently, the patient had a dialysis yesterday. PHYSICAL EXAMINATION: Vital Signs: Afebrile. Vital signs stable. General: Obtunded. HEENT: Jaundiced, pale. Chest: Clear. Heart: Sounds are regular. Abdomen: Belly is soft, nontender. Good bowel sounds. No peripheral edema or cyanosis. He has been under restraints. INVESTIGATIONS: CBC: White cell count 2.6, hematocrit 30, platelets 37. SMA-7: Sodium 142, potassium 4.8, chloride 103, BUN 36, creatinine 3.3. Glucose 146. Total bilirubin 6.6. Alkaline phosphatase 136. Ammonia was 219, 218, slowly coming down. Hepatitis panel C antibody was reactive. Hepatitis C virus log 35. ASSESSMENT AND PLAN: 1. Altered mental status due to ammonia encephalopathy due to upper gastrointestinal bleeding. 2. Thrombocytopenia. Transfuse 1 unit of blood. Continue Sandostatin. Continue the lactulose by mouth through the nasogastric tube, as well as edema. 3. End-stage kidney disease on dialysis. 4. Impending acute hepatic failure, with increasing bilirubin. It is very detrimental to his survival. Discussed with the patient's prognosis is poor. We will repeat the labs in the morning. LEVEL OF DOCUMENTATION: 25 minutes. cc: Fabricio Zavala MD
[2016-11-07] MEDS ORDERED: LACRI-LUBE OPH OINT BOTH EYES PRN (05:46)
[2016-11-07 06:04] LABS: INR 1.33; PROTIME 14.2 Seconds (9.2-11.7)
[2016-11-07 06:10] LABS: BASO% 0.9 % (0.0-0.8); EOS# 0.09 X1000 (0.0-0.7); HEMATOCRIT 30.1 % (42.0-52.0); HEMOGLOBIN 9.8 g/dL (14.0-18.0); LYMPH# 0.51 X1000 (1.2-3.4); LYMPH% 22.6 % (20.5-51.1); MANUAL DIFF NEEDED? NO; MCH 31.7 PG (27-31); MCHC 32.6 g/dL (33-37); MCV 97.4 FL (81-99); MONO# 0.16 X1000 (0.11-0.59); MONO% 7.1 % (1.7-9.3); MPV 9.5 FL (7.4-10.4); NEUT% 65.4 % (42.2-75.2); PLT 47 X1000 (130-400); RBC 3.09 XMIL (4.7-6.1)
[2016-11-07] MEDS: TUMS EXTRA STRENGTH PO SCH ×3 (06:21→15:58)
[2016-11-07] MEDS: PRILOSEC PO SCH (06:21)
[2016-11-07] MEDS: SYNTHROID PO SCH (06:21)
[2016-11-07 06:22] LABS: ALBUMIN 2.7 g/dL (3.5-5.0); CALCIUM 8.6 mg/dL (8.8-10.2); POTASSIUM 4.5 mmol/L (3.5-5.1); TOTAL BILIRUBIN 5.65 mg/dL (0.20-1.00); TOTAL PROTEIN 6.2 g/dL (6.3-8.3)
[2016-11-07] MEDS ORDERED: HEPARIN IV PRN (07:16)
[2016-11-07] MEDS ORDERED: TIGHT: 0.2 ML/HR MISC PRN (07:16)
[2016-11-07] MEDS ORDERED: NS 2,000 ML MISC PRN (07:16)
[2016-11-07] MEDS: HUMULIN R SUBQ SCH ×5 (08:50→21:57)
[2016-11-07] MEDS: ROCEPHIN 1 GM/NS 1 GM/50 ML IVPB IV SCH (09:15)
[2016-11-07] MEDS: LACTULOSE NG SCH ×3 (09:16→18:02)
[2016-11-07] MEDS: FERROUS SULFATE PO SCH ×3 (09:16→18:02)
[2016-11-07] MEDS: FOLIC ACID PO SCH (09:16)
[2016-11-07] MEDS: JANUVIA PO SCH (09:16)
[2016-11-07] MEDS: XIFAXAN PO SCH ×2 (09:17→22:03)
[2016-11-07] MEDS: SANDOSTATIN INJ SCH ×3 (09:39→18:03)
--- NOTE | 2016-11-07 11:13 | PROGRESS NOTE ---
DATE: 11/07/2016 SUBJECTIVE: Mr. Cortes is obtunded again today. His eyes are partially open but he will not fix on me or respond in any way. OBJECTIVE: Vital Signs: Blood pressure 154/79, heart rate 89, respirations 26, afebrile. Intake 700 mL. Output 800 mL. General: No acute distress. Skin: Warm and dry. HEENT: Conjunctivae are pink. Somewhat icteric. Oropharynx is dry. Neck: Neck veins are not visible. Heart: Regular with no rubs. Lungs: Have equal breath sounds. No crackles. Abdomen: Obese and soft. Bowel sounds are present. Extremities: Have 1+ edema. No clubbing or cyanosis. LABORATORY DATA: Sodium 143, potassium 4.5, chloride 102, bicarbonate 25, BUN 55, creatinine 3.8. Hemoglobin 9.8. IMPRESSIONS: 1. Hepatic encephalopathy. Exacerbated by GI blood loss that is chronic. He is being treated aggressively by Dr. Zavala. 2. End-stage renal disease. He is due for his routine dialysis today. 3. Acid-base/electrolytes, in target. 4. Anemia. No need for transfusion at this time. cc: MD Fabricio Cervantes MD
[2016-11-07] MEDS ORDERED: HEPARIN ONE (11:35)
[2016-11-07] MEDS ORDERED: NS 2,000 ML ONE (11:36)
[2016-11-07] MEDS ORDERED: LEVAQUIN 250 MG/D5W 250 MG/50 ML IVPB IV ONE (17:27)
--- NOTE | 2016-11-07 17:48 | PROGRESS NOTE ---
DATE: 11/07/2016 SUBJECT: NG tube was placed. Lactulose was given. Mental status has not improved, he appears to be more jaundiced pale, confused, not responding appropriately. Restless. REVIEW OF SYSTEMS: None reported. EXAM: Vital signs: Afebrile, tachycardic. Blood pressure is stable. Weight 220 pounds. More jaundice appear looking. Chest: Clear. Heart: Sounds are regular, tachycardic. Belly: Soft, nontender. Hemodynamics were stable. INVESTIGATIONS: Urine cultures are Enterobacter cloacae. CBC. White cell count 2.2, hematocrit 30, platelets 47,000. PT 14, INR 1.3. SMA 7. Sodium 143, potassium 4.5, chloride 102, BUN 55, creatinine 3.8, glucose 130, ammonia 123. ASSESSMENT AND PLAN: 1. Impending hepatic failure. Bilirubin is going high. Discussed with the family poor prognosis. 2. Ammonia encephalopathy and ammonia levels 139. Continue on the lactulose. 3. End-stage kidney disease on dialysis. If the jaundice levels going up his prognosis is poor. Mentally prepared the family members for any sudden demise. PLAN OF CARE: Initiate the antibiotics. Will start with the Levaquin 250 IV once a day. LEVEL OF DOCUMENTATION: 25 minutes. cc: Fabricio Zavala MD [facility]
[2016-11-07] MEDS: ZOFRAN IV PRN (18:18)
[2016-11-07] MEDS: PROGRAF PO SCH (20:12)
[2016-11-08] MEDS: PRILOSEC PO SCH (06:25)
[2016-11-08] MEDS: TUMS EXTRA STRENGTH PO SCH ×3 (06:26→16:16)
[2016-11-08] MEDS: SYNTHROID PO SCH (06:27)
[2016-11-08] MEDS: HUMULIN R SUBQ SCH ×4 (06:32→20:42)
[2016-11-08] MEDS: ROCEPHIN 1 GM/NS 1 GM/50 ML IVPB IV SCH (07:30)
[2016-11-08] MEDS: XIFAXAN PO SCH ×2 (08:39→20:39)
[2016-11-08] MEDS: JANUVIA PO SCH (08:39)
[2016-11-08] MEDS: FOLIC ACID PO SCH (08:40)
[2016-11-08] MEDS: FERROUS SULFATE PO SCH ×3 (08:40→16:16)
[2016-11-08] MEDS: LACTULOSE NG SCH ×5 (08:44→20:39)
[2016-11-08] MEDS: SANDOSTATIN SUBQ SCH ×3 (10:15→20:42)
--- NOTE | 2016-11-08 10:56 | PROGRESS NOTE ---
DATE: 11/08/2016 SUBJECTIVE: The patient is doing much better. NG tube is still here and he has intermittent bleeding, but mostly bile is coming out. He is awake. He had dialysis yesterday. He is not offering complaints. He is recognizing everybody. His mental status came back normal. He still has intermittent bleeding in the upper GI tract. REVIEW OF SYSTEMS: None reported. OBJECTIVE: Vital Signs: He is afebrile. Vitals are stable. HEENT: Jaundice noted. Chest: Clear. Heart: Sounds are regular. Abdomen: Belly is soft, nontender. No asterixis noted. Neurologic: No obvious deficits seen. LABORATORY: No labs were done today. ASSESSMENT AND PLAN: 1. Ammonia encephalopathy, resolving. 2. Upper gastrointestinal bleeding. Continue on subcutaneous Sandostatin and clamp the NG tube. If he is stable, we will discontinue the NG tube. 3. Hypothyroidism, on Synthroid. 4. Type 2 diabetes, on Januvia. 5. Urinary tract infection. Continue on ceftriaxone and Levaquin. He is going for dialysis tomorrow. Repeat the ammonia, CBC, and CMP in the morning. Discussed with the family. LEVEL OF DOCUMENTATION: Fifteen minutes. cc: Fabricio Zavala MD
--- NOTE | 2016-11-08 14:13 | PROGRESS NOTE ---
DATE: 11/08/2016 SUBJECTIVE: He is better today. Awake, alert, able to interact. OBJECTIVE: Vital Signs: Blood pressure 140/91 heart rate 86, respirations 16, afebrile. Intake 280 mL; output 2.5 L. General: On physical exam, no acute distress. Skin: Icteric. Eyes: Conjunctivae are pink. Heart: Regular. Lungs: Have equal breath sounds. No crackles. Abdomen: Obese and soft. Bowel sounds present. Extremities: Have 1+ edema. No clubbing or cyanosis. LABORATORY DATA: None today. IMPRESSION: 1. End-stage renal disease. Next planned dialysis on Thursday. 2. Volume status acceptable. cc: MD Fabricio Cervantes MD
[2016-11-08] MEDS: LEVAQUIN 250 MG/D5W 250 MG/50 ML IVPB IV SCH (17:31)
[2016-11-09] MEDS: SYNTHROID PO SCH (06:03)
[2016-11-09] MEDS: PRILOSEC PO SCH (06:03)
[2016-11-09] MEDS: HUMULIN R SUBQ SCH ×4 (06:03→20:55)
[2016-11-09] MEDS: TUMS EXTRA STRENGTH PO SCH ×3 (06:03→16:14)
[2016-11-09 06:24] LABS: ALBUMIN 2.9 g/dL (3.5-5.0); CALCIUM 8.7 mg/dL (8.8-10.2); POTASSIUM 3.8 mmol/L (3.5-5.1); TOTAL BILIRUBIN 4.62 mg/dL (0.20-1.00); TOTAL PROTEIN 6.1 g/dL (6.3-8.3)
[2016-11-09] MEDS: ROCEPHIN 1 GM/NS 1 GM/50 ML IVPB IV SCH (08:33)
[2016-11-09] MEDS: FERROUS SULFATE PO SCH ×3 (08:34→16:14)
[2016-11-09] MEDS: JANUVIA PO SCH (08:34)
[2016-11-09] MEDS: FOLIC ACID PO SCH (08:34)
[2016-11-09] MEDS: SANDOSTATIN SUBQ SCH ×3 (08:35→20:55)
[2016-11-09] MEDS: LACTULOSE NG SCH ×4 (08:35→20:54)
[2016-11-09] MEDS: XIFAXAN PO SCH ×2 (08:35→20:55)
--- NOTE | 2016-11-09 09:27 | PROGRESS NOTE ---
DATE: 11/09/2016 SUBJECTIVE: Doing well. Moved out of the ICU. Still has NG tube placed. A little bit of confusion last night. No signs of active bleeding noted from the NG tube. Tolerating the diet very well. REVIEW OF SYSTEMS: None reported. PHYSICAL EXAMINATION: Vital Signs: Afebrile, pulse is 89, respirations 16, blood pressure is 119/66, weight 235 pounds. HEENT: Jaundiced, anemic. Chest: Clear. Heart: Heart sounds are regular. Abdomen: Belly is soft, obese, nontender. Extremities: Stasis dermatitis changes noted. No asterixis. Neurologic Examination: Nonfocal. INVESTIGATIONS: Sodium 140, potassium 3.8, chloride 102, BUN 59, creatinine 4.1. Bilirubin 4.62. Elevated LFTs. Ammonia level is 82. ASSESSMENT AND PLAN: 1. Ammonia encephalopathy, improving, still high levels. Keep the NG tube for the next 24 hours. Continue on lactulose and Xifaxan. 2. Elevated LFTs and jaundice are coming down. 3. Upper gastrointestinal bleeding, stable on Sandostatin. 4. End-stage kidney disease, on dialysis. Going for hemodialysis tomorrow. 5. Urinary tract infection, on ceftriaxone and Levaquin. Continue current therapy. LEVEL OF DOCUMENTATION: 15 minutes. We will check the CBC and ammonia levels in the morning. cc: Fabricio Zavala MD MTDD
[2016-11-09] MEDS ORDERED: CALMOSEPTINE OINTMENT TOP PRN (16:47)
[2016-11-09] MEDS: LEVAQUIN 250 MG/D5W 250 MG/50 ML IVPB IV SCH (17:31)
[2016-11-10 04:36] LABS: MANUAL DIFF NEEDED? NO
[2016-11-10 05:18] LABS: BASO% 0.7 % (0.0-0.8); EOS# 0.13 X1000 (0.0-0.7); EOS% 4.6 % (0.0-10.0); HEMATOCRIT 25.9 % (42.0-52.0); HEMOGLOBIN 8.5 g/dL (14.0-18.0); LYMPH# 0.44 X1000 (1.2-3.4); LYMPH% 15.6 % (20.5-51.1); MCHC 32.8 g/dL (33-37); MCV 97.4 FL (81-99); MONO# 0.19 X1000 (0.11-0.59); MONO% 6.7 % (1.7-9.3); MPV 10.2 FL (7.4-10.4); NEUT% 72.4 % (42.2-75.2); PLT 31 X1000 (130-400); RBC 2.66 XMIL (4.7-6.1)
[2016-11-10] MEDS: HUMULIN R SUBQ SCH ×4 (06:42→20:50)
[2016-11-10] MEDS ORDERED: NS 2,000 ML MISC PRN (07:16)
[2016-11-10 07:21] LABS: ALBUMIN 2.8 g/dL (3.5-5.0); CALCIUM 8.7 mg/dL (8.8-10.2)
[2016-11-10 07:47] LABS: POTASSIUM 4.3 mmol/L (3.5-5.1)
[2016-11-10] MEDS: ROCEPHIN 1 GM/NS 1 GM/50 ML IVPB IV SCH (07:50)
[2016-11-10] MEDS: JANUVIA PO SCH (07:59)
[2016-11-10] MEDS: PRILOSEC PO SCH (07:59)
[2016-11-10] MEDS: FOLIC ACID PO SCH (08:00)
[2016-11-10] MEDS: SYNTHROID PO SCH (08:00)
[2016-11-10] MEDS: XIFAXAN PO SCH ×2 (08:00→20:50)
[2016-11-10] MEDS: FERROUS SULFATE PO SCH ×3 (08:01→16:05)
[2016-11-10] MEDS: TUMS EXTRA STRENGTH PO SCH ×3 (08:02→16:03)
[2016-11-10] MEDS: LACTULOSE NG SCH ×4 (08:03→20:50)
[2016-11-10] MEDS ORDERED: NS 2,000 ML ONE (08:08)
[2016-11-10] MEDS ORDERED: HEPARIN ONE (08:08)
--- NOTE | 2016-11-10 10:59 | PROGRESS NOTE ---
DATE: 11/10/2016 SUBJECTIVE: Mr. Cortes is resting quietly in bed. He is just received his medication. He states that he has discomfort secondary to his NG tube. Otherwise it remains clamped and he is now eating. Denies chest pain or increased work of breathing. OBJECTIVE: His most recent vital signs, temperature 97.4 degrees blood pressure 124/74, heart rate 73, respirations 18. He is on room air. Last recorded saturation 98%. He has had 1460 in. He has had 0 recorded out. LABORATORY DATA: Sodium 143, potassium 4.3, chloride 102, CO2 21, BUN 69 creatinine 5.4, glucose 136, anion gap 21, calcium 8.7, phosphorus 7.5, albumin 2.8. White count 2.82, hemoglobin 8.5, hematocrit 25.9, with a platelet count of 31,000. His ammonia level is 69. PHYSICAL EXAMINATION: General: This is a 61-year-old, white male. He is resting in bed. He appears chronically ill. No acute distress. Skin: Warm and dry. HEENT: Normocephalic, atraumatic. Conjunctiva is icteric. He has CRESCENCIO, mucous membranes are dry. Neck: Supple. Trachea midline. No JVD. Cardiovascular: He has regular rate and rhythm. He is without murmur or gallop. Lungs: Clear to auscultation anteriorly. Equal excursion. Abdomen : Obese, soft, nontender. Positive bowel sounds. NG tube remains intact to the right naris, clamped. Extremities: Continues with 1+ edema. No clubbing or cyanosis. Integumentary : No rashes or lesions noted. He remains jaundiced. Neurological: Alert and oriented x3. ASSESSMENT AND PLAN: 1. End-stage renal disease. Patient is due for his routine dialysis treatment today. We will place him on a 2 K bath. He is to dialyze for 3-1/2 hours. We will hold heparin. We will attempt to pull patient to his dry weight. 2. Electrolytes. These are stable. 3. Acid-base balance. This is stable. 4. Anemia. This remains low but stable. I would like to thank you for allowing us to follow with this patient. Seen, data reviewed, discussed with [place] on 11/10/16. I agree with the above assessment and plan of care. rg Dictated by EDWAR Walter for Mykel Sanchez MD cc: EDWAR Walter MD Jagan Reddy, MD [facility]
[2016-11-10] MEDS: SANDOSTATIN SUBQ SCH ×3 (13:45→20:50)
--- NOTE | 2016-11-10 15:39 | PROGRESS NOTE ---
DATE: 11/10/2016 SUBJECTIVE: Patient is more alert. NG tube still on. Going for dialysis. No complaints. EXAMINATION: Vital signs: Afebrile, weight 234 pounds, pulse rate 78, blood pressure is 102/69. HEENT: Jaundiced, pale. Neck: Supple. Chest: Clear. Heart: Sounds are regular. Abdomen: Belly is soft, nontender. Good bowel sounds. Extremities: No peripheral edema. Neurologic: No asterixis noted. INVESTIGATIONS: CBC: White cell count 2.8, hematocrit 26, platelets 31,000. SMA7: Sodium 143, potassium 4.3, chloride 102, BUN 17, creatinine 5.2, glucose 143. Ammonia level 69. ASSESSMENT AND PLAN: 1. Ammonia encephalopathy, improving. Continue on lactulose 45 mL 4 times daily along with Xifaxan. 2. Pancytopenia, stable. 3. End-stage kidney disease on hemodialysis today. 4. Remove the nasogastric tube and if he is stable, we will discharge. LEVEL OF DOCUMENTATION: 15 minutes. cc: Fabricio Zavala MD
[2016-11-10] MEDS: LEVAQUIN 250 MG/D5W 250 MG/50 ML IVPB IV SCH (18:16)
[2016-11-10] MEDS: PROGRAF PO SCH (19:19)
[2016-11-11 06:17] LABS: ALBUMIN 2.7 g/dL (3.5-5.0); CALCIUM 8.3 mg/dL (8.8-10.2); POTASSIUM 3.8 mmol/L (3.5-5.1)
[2016-11-11] MEDS: TUMS EXTRA STRENGTH PO SCH ×3 (06:26→16:30)
[2016-11-11] MEDS: PRILOSEC PO SCH (06:26)
[2016-11-11] MEDS: SYNTHROID PO SCH (06:27)
[2016-11-11] MEDS: HUMULIN R SUBQ SCH ×4 (06:43→20:55)
[2016-11-11] MEDS: ROCEPHIN 1 GM/NS 1 GM/50 ML IVPB IV SCH (09:28)
[2016-11-11] MEDS: FERROUS SULFATE PO SCH ×3 (09:29→17:14)
[2016-11-11] MEDS: FOLIC ACID PO SCH (09:29)
[2016-11-11] MEDS: LACTULOSE NG SCH ×5 (09:29→22:18)
[2016-11-11] MEDS: JANUVIA PO SCH (09:29)
[2016-11-11] MEDS: XIFAXAN PO SCH ×2 (09:29→20:54)
[2016-11-11] MEDS: SANDOSTATIN SUBQ SCH ×3 (09:33→20:53)
--- NOTE | 2016-11-11 10:47 | PROGRESS NOTE ---
DATE: 11/11/2016 SUBJECTIVE: Mr. Cortes is alert. His vital signs are stable. Abdomen is soft, nontender. Lungs are clear. Hemoglobin is 8.5, hematocrit normal, white count is normal. His BUN is 33, creatinine is 3.9 with renal failure. Electrolytes and blood sugars are stable. We will continue with the current management on him. -3 cc: MD Fabricio Malcolm MD
[2016-11-11] MEDS: LEVAQUIN 250 MG/D5W 250 MG/50 ML IVPB IV SCH (17:14)
[2016-11-12 04:45] LABS: MANUAL DIFF NEEDED? NO
[2016-11-12 05:20] LABS: ALBUMIN 2.4 g/dL (3.5-5.0); CALCIUM 8.2 mg/dL (8.8-10.2); POTASSIUM 4.2 mmol/L (3.5-5.1)
[2016-11-12 05:34] LABS: BASO% 0.4 % (0.0-0.8); EOS# 0.12 X1000 (0.0-0.7); EOS% 5.1 % (0.0-10.0); HEMATOCRIT 23.4 % (42.0-52.0); HEMOGLOBIN 7.6 g/dL (14.0-18.0); LYMPH# 0.61 X1000 (1.2-3.4); LYMPH% 25.8 % (20.5-51.1); MCH 31.8 PG (27-31); MCHC 32.5 g/dL (33-37); MCV 97.9 FL (81-99); MONO# 0.19 X1000 (0.11-0.59); MONO% 8.1 % (1.7-9.3); NEUT% 60.6 % (42.2-75.2); PLT 33 X1000 (130-400); RBC 2.39 XMIL (4.7-6.1)
[2016-11-12] MEDS: SYNTHROID PO SCH (06:23)
[2016-11-12] MEDS: PRILOSEC PO SCH (06:23)
[2016-11-12] MEDS: TUMS EXTRA STRENGTH PO SCH ×2 (06:23→13:05)
[2016-11-12] MEDS: HUMULIN R SUBQ SCH ×2 (06:24→13:21)
[2016-11-12] MEDS ORDERED: NS 2,000 ML MISC PRN (06:57)
[2016-11-12] MEDS ORDERED: NS 2,000 ML ONE (08:45)
[2016-11-12] MEDS ORDERED: HEPARIN ONE (08:46)
--- NOTE | 2016-11-12 10:02 | PROGRESS NOTE ---
DATE: 11/12/2016 TIME SEEN: 729. SUBJECTIVE: Mr. Cortes states that he is feeling well. He denies chest pain. No increased work of breathing. OBJECTIVE: His most recent vital signs: Temperature 98.1 degrees, blood pressure 104/39, heart rate 80, respirations 18. He is on room air. Last recorded saturation 99%. He has had 1390 In. He has had 84 mL out per void. LABORATORY DATA: Sodium 139, potassium 4.2, chloride 101, CO2 of 22. BUN 42, creatinine 4.8, glucose 123. Anion gap 16. Calcium 8.2, phosphorus 7.3. Albumin 2.4. White count 2.36, hemoglobin 7.6, hematocrit 23.4 with a platelet count of 33,000. PHYSICAL EXAMINATION: General: This is a 61-year-old, white male. He is currently resting in bed. He has no complaints. He appears chronically ill with no acute distress. Skin: Warm and dry. HEENT: Normocephalic, atraumatic. Conjunctivae pale. He is slightly icteric. His pupils are equal and reactive to light. Mucous membranes are moist. Neck: Supple. Trachea midline. No JVD. Cardiovascular: Regular rate and rhythm. He is without murmur or gallop. Lungs: Clear to auscultation anteriorly. Equal excursion on room air. Abdomen: Obese, soft , nontender. Positive bowel sounds. Extremities: Continues with trace to 1+ lower extremity edema. No clubbing or cyanosis. Integumentary: No rashes or lesions evident. Patient remains slightly jaundiced. Neurologic: Alert and oriented x3. ASSESSMENT AND PLAN: 1. End-stage renal disease. Patient is due for his routine dialysis treatment today. We will place him on a 2 K bath. He is to dialyze for 3.5 hours. We will attempt to pull patient to his dry weight. We will also hold heparin while on dialysis. 2. Electrolytes. These remain stable. 3. Acid-base balance. This is stable. 4. Anemia. This is low. We will plan for transfusion of 2 units of packed red blood cells while on dialysis today. I would to thank you for allowing us to follow with this patient. Seen, data reviewed, discussed with [place] on 11/12/16. I agree with the above assessment and plan of care. rg Dictated by EDWAR Walter for Mykel Sanchez MD cc: EDWAR Walter MD Jagan Reddy, MD [facility] HEALTHPatricia
[2016-11-12 12:29] VITALS: BP 106/54
[2016-11-12] MEDS: LACTULOSE NG SCH ×2 (13:04→13:21)
[2016-11-12] MEDS: JANUVIA PO SCH (13:05)
[2016-11-12] MEDS: XIFAXAN PO SCH (13:05)
[2016-11-12] MEDS: FERROUS SULFATE PO SCH ×2 (13:05→13:21)
[2016-11-12] MEDS: FOLIC ACID PO SCH (13:05)
[2016-11-12] MEDS: SANDOSTATIN SUBQ SCH (13:05)
[2016-11-12] MEDS: ROCEPHIN 1 GM/NS 1 GM/50 ML IVPB IV SCH (13:21)
--- NOTE | 2016-11-13 01:23 | DISCHARGE SUMMARY ---
ADMISSION DATE: 11/03/2016 DISCHARGE DATE: 11/12/2016 DISCHARGING DIAGNOSES: 1. Acute metabolic encephalopathy due to ammonia due to cirrhosis of liver. 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 2. Anemia due to chronic blood loss from gastric antral vascular ectasia syndrome due to portal hypertension. 3. End-stage kidney disease, on dialysis. 4. 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 5. Type 2 diabetes, controlled. A1c 4.8. Discontinue glipizide. 6. Gout. 7. Hypertension. 8. Hypogonadism. 9. Hypothyroidism. 10. Pancytopenia due to hypersplenism. 11. Umbilical hernia. 12. Sleep apnea. 13. History of subacute bacterial peritonitis. 14. Urinary tract infection. CONSULTANTS: Dr. Sanchez. PROCEDURE: 1. NG tube with lactulose. 2. Intermittent dialysis. 3. Hematological support, with transfusion of 6 units of blood, 1 unit of fresh frozen plasma, 2 units of apheresis platelets. BRIEF HISTORY: Please see the H and P that was done on the day of admission. In brief, he is a 61-year-old with the above problems, well known to this hospital, doing very well over the weekend. Came back with altered mental status, confusion. Brought to the emergency room by the . He was admitted in the ICU. He has ammonia encephalopathy. He has also had bleeding in the stomach. He was given lactulose enemas, NG tube along with the lactulose. He also was given antibiotics with Rocephin and Levaquin. Hematological support was given, blood products, which includes plasma, platelets, and 6 units of blood transfusion. During this hospitalization, he was given intermittent dialysis. NG tube was taken out. He was transferred out of the ICU. The rest of the course was uneventful. Apparently, I was told he was approved for liver transplant. Waiting clearance from the insurance. LABORATORY STUDIES: At the time of discharge, CBC: White cell count 2.3, hematocrit 23, platelets 33. SMA-7: Sodium 139, potassium 4.2, chloride 101, BUN 42, creatinine 4.8, glucose 123. Albumin is 2.4. Total bilirubin 4.6, ammonia 69. The patient was discharged after dialysis. DISCHARGE INSTRUCTIONS: 1. Prograf 1 mg daily. 2. Prilosec 40 daily. 3. Discontinue glipizide. 4. Xifaxan 550 p.o. b.i.d. 5. Synthroid 125 mcg daily. 6. Januvia 25 daily. 7. Calcium carbonate 30 mg p.o. t.i.d. 8. Folic acid 1 mg daily. 9. Iron sulfate 325 p.o. b.i.d. 10. Sandostatin 50 mcg subcu t.i.d. 11. Lactulose 45 mL q.6 hours. 12. Aranesp as directed. FOLLOWUP: With [facility] transplant clinic next week. Continue with the dialysis here as needed. cc: MD Mykel Bragg MD
== END 2016-11-12 13:27 | disposition home or self-care (01) ==
LOC: SUPCPDRO → ED 11:33 → ICU 14:51 → 3S 11-08 22:00
PROVIDERS: ADMIT Internal Medicine; ATTEND Internal Medicine